=== PATIENT | male | born 1955 | race Caucasian/White ===

== ENCOUNTER 2019-07-21 13:07 | Outpatient (CLI) | payer OTHER, SELFPAY ==
--- NOTE | 2019-07-21 13:16 | ECG_ITS ---
Measurements Intervals [place] Rate: 91 P: 66 MN: 134 QRS: 48 QRSD: 88 T: 61 QT: 357 QTc: 440 Interpretive Statements SINUS RHYTHM NORMAL ECG Electronically Signed On 07-21-2019 17:51:08 CDT by Aj Verdugo D.O.
[2019-07-21 13:52] LABS: Blood Urea Nitrogen 21 mg/dL (9-20); Calcium 9.1 mg/dL (8.4-10.2); Carbon Dioxide 33 mmol/L (22-30); Chloride 98 mmol/L (98-107); Estimated Glomerular Filt Rate 51; Glucose 218 mg/dL (75-110); Potassium 4.1 mmol/L (3.4-5.0); Sodium 134 mmol/L (137-145)
[2019-07-21 13:56] LABS: INR 1.1; Prothrombin Time 13.8 Seconds (11.1-14.7)
[2019-07-21 13:57] LABS: Partial Thromboplastin Time 33.9 SECONDS (22.3-36.8)
== END 2019-07-21 13:08 | disposition home or self-care (01) ==
PROVIDERS: PCP Family Medicine; Visit Provider Anesthesiology
DX: E10.8 Type 1 diabetes mellitus with unspecified complications (principal); N18.9 Chronic kidney disease, unspecified
CPT/HCPCS: 36415; 80048; 85610; 85730; 93005

== ENCOUNTER 2019-07-23 01:04 | Day surgery (SDC) | payer OTHER, SELFPAY ==
[2019-07-20 13:11] VITALS: BMI 19.3
[2019-07-23] VITALS (10 sets, daily range): BP systolic 113–137; BP diastolic 41–70; PULSE 76–92; RESP 9–20; TEMP 36.3–37.7; O2SAT 96–100
--- NOTE | ~2019-07-23 | XR_ITS ---
EXAMINATION: XR surgery orthopedic DATE: 07/23/2019 10:09 INDICATION: Right foot transmetatarsal amputation TECHNIQUE: 2 fluoroscopic spot images of the right fore and midfoot were obtained during procedure pe rformed by Dr. Loyd. Radiologist was not present for the imaging or procedure. The amount of fluo roscopy time used during this procedure was 0.1 minutes. COMPARISON: None. FINDINGS: Initial mobile solutions architect image demonstrates a prior transmetatarsal amputation across the first metata rsal with smooth corticated margins. Osteolytic changes are seen at the heads of the second and third metatarsals and extending in a band across the second proximal phalanx. There is also an irregular c ortical contour to the neck of the fourth proximal phalanx. Subsequent image demonstrates transmetata rsal amputation across the proximal diaphyses of the second-fifth metatarsals. IMPRESSION: 1. Fluoroscopy utilized during right forefoot amputation across the diaphyses of the second-fifth met atarsals with changes of an earlier first transmetatarsal amputation. See procedure note for further detail. Reviewed, dictated and finalized at location [facility]. IMPRESSION: 1. Fluoroscopy utilized during right forefoot amputation across the diaphyses o f the second-fifth metatarsals with changes of an earlier first transmetatarsal amputation. See procedure note for further detail.
--- NOTE | 2019-07-23 07:34 | WPDANESEPPF ---
Anes - Initial Pre Proc Eval Procedure: Operation Date: 07/23/19 09:00 Proposed Procedures p Transmetatarsal Amputation Right Foot - Jaspreet Loyd JR, MD Date/Time: 07/23/19 07:34 Surgeon: Jaspreet Loyd JR, MD Pre Op Diagnosis: Gangrene Right Forefoot Patient Data Age: 64 Gender: M Height: 5 ft 11 in Weight: 63 kg Allergies Allergy/AdvReac Type Severity Reaction Status Date / Time No Known Allergies Allergy Unknown Verified 07/20/19 12:56 Home Medications Medication Instructions Recorded Confirmed Type clonazepam 1 mg tablet 1 mg PO DAILY #30 tablet 03/05/19 07/20/19 Rx duloxetine 60 mg capsule,delayed 60 mg PO DAILY 03/05/19 07/20/19 History release insulin aspart U-100 100 unit/mL 1 sliding scale dose SUB-Q 03/05/19 07/20/19 History subcutaneous cartridge USEASDIRECTD blood-glucose transmitter #1 each 05/18/19 05/18/19 History blood sugar diagnostic #600 each 06/30/19 Rx aspirin [Aspirin Childrens] 81 mg PO DAILY 07/20/19 07/20/19 History clindamycin HCl 300 mg PO Q8H 07/20/19 07/20/19 History collagenase clostridium histo. 1 applic TOPICAL DAILY 07/20/19 07/20/19 History [Santyl] ezetimibe 10 mg PO DAILY 07/20/19 07/20/19 History gabapentin 100 mg PO DAILY 07/20/19 07/20/19 History gabapentin 200 mg PO HS 07/20/19 07/20/19 History Patient hx anesthesia problems: none Family hx anesthesia problems: none PMFSH Past Medical History Medical History Ambulatory dysfunction Amputated toe of right foot Chronic kidney disease, unspecified Insomnia Major depressive disorder, recurrent, moderate FARNAZ (obstructive sleep apnea) Type I diabetes mellitus with complication Social History Social History Smoking status: Never smoker Alcohol intake: never Substance use: never Substance use type: does not use Gender identity (if verbalized by the patient): Male Anes - Eval Final PreProcedure Day of Procedure 07/23/19 07:34 Patient weight: normal Heart: regular rate and rhythm Lungs: clear to auscultation Airway: Mallampati scale class II Neurological: alert and oriented Last oral intake: >/= 8 hours ASA classification: III Emergent: no Anesthetic plan: proceed Anesthesia type and monitoring: general LMA and standard monitoring Informed Consent: The patient's anesthetic plan and its attendant risks and benefits were discussed with the patient/family/POA. Questions were solicited and answers provided to the satisfaction of the patient/family/POA.
[2019-07-23] MEDS: LACTATED RINGERS 1,000 ML 30 ML IV CONT (07:45)
[2019-07-23 07:52] LABS: Glucose Point of Care 213 (65-105)
--- NOTE | 2019-07-23 08:56 | WPDHPUPDATE1 ---
History and Physical Update Update Date/Time: 07/23/19 08:56 History and Physical has been reviewed, including an updated exam of the patient. There are NO changes in the patient's condition. Risks, benefits, and alternatives have been discussed and questions answered. Patient agrees to proceed with procedure understands that he may end up with a more proximal amputation if he does not heal at the TMA level .
[2019-07-23] MEDS: ceFAZolin 2 GM/D5W 50 ML 2 GM/50 ML BAG IVPB (09:05)
[2019-07-23] MEDS: LIDOCAINE HCL 2% LOCAL INJ 20 ML VIAL 10 ML INFILTRATE (09:41)
--- NOTE | 2019-07-23 10:23 | SUR.OPER ---
[id number]
--- NOTE | 2019-07-23 10:36 | PM.OP ---
Procedure Note - Brief Procedure Note - Brief Date of procedure: 07/23/19 Pre-op diagnosis: Gangrene Right Forefoot Post-op diagnosis: same Procedure performed: Transmetatarsal amputation right foot Anesthesia: GLMA Surgeon: Jaspreet Loyd JR, DPM Estimated blood loss (mL): 100 Complications: No immediate complications Condition: stable Disposition: same day
[2019-07-23 10:47] LABS: Glucose Point of Care 240 (65-105)
--- NOTE | 2019-07-23 10:57 | SUR.PHASEI ---
1050 - DR. MUNIZ'S AWAREOF 240 ACCUCHECK. NO ORDERS RECEIVED. SPOKE WITH PT ABOUT INSULIN PUMP. PT STATED THAT 240 WAS OK AT THIS TIME.
--- NOTE | 2019-07-23 11:02 | SUR.PHASEI ---
1102- DR. CEDILLO AT BEDSIDE SPEAKING WITH PT.
--- NOTE | 2019-07-23 11:43 | ADMGEN ---
This patient, Guerrero Yang , was admitted to 3 [facility] Surg Room 312-01. Patient/family oriented to hospital policies and general routines including ID bracelet, bed and alarms, visiting hours, pain management, procedures, bathroom and other care routines, personal items, smoking policy, room service/diet, and visiting hours. Valuables list has been completed. Information on how to activate the Rapid Response Team has been discussed. Patient/Family are encouraged to report perceived risks to care and to ask questions if they do not understand what they are told or what they should do.
[2019-07-23 12:36] LABS: Estimated CRCL calculation 44 ml/min; Estimated Glomerular Filt Rate 51
--- NOTE | 2019-07-23 12:39 | OP_ITS ---
DATE OF PROCEDURE: 07/23/2019 PREOPERATIVE DIAGNOSIS: Gangrene to the right forefoot. POSTOPERATIVE DIAGNOSIS: Gangrene to the right forefoot. PROCEDURE: Transmetatarsal amputation of the right foot. PATHOLOGY: The right forefoot sent for gross and histopathology. ANESTHESIA: General LMA with local anesthesia. HEMOSTASIS: Pneumatic ankle tourniquet at 250 mmHg. ESTIMATED BLOOD LOSS: 100 mL. MATERIALS USED: 3-0 Vicryl, 4-0 Vicryl, and 3-0 Prolene. INJECTABLES: 20 cc of a 1:1 mixture of 2% lidocaine plain and 0.5% Marcaine plain injected preoperatively. COMPLICATIONS: None. PROCEDURE IN DETAIL: Under mild sedation, the patient was brought into the operating room and placed on the operating table in the supine position. A pneumatic ankle tourniquet was placed about the patient's right ankle. Following general anesthesia, local anesthesia was obtained about the right foot utilizing 20 cc of a 1:1 mixture of 2% lidocaine plain and 0.5% Marcaine plain. The foot was then scrubbed, prepped, and draped in the usual aseptic manner. An Esmarch bandage was then used to examine the patient's right foot and the pneumatic ankle tourniquet was then inflated. Surgery began in the following manner: Attention was directed to the dorsal aspect of the right forefoot where a curvilinear incision was made along the proximal shaft of the metatarsals. Fluoroscopy was used to identify the distal margin of the previously resected 1st ray of the right foot. Next the parabola was approximated just slightly proximal to the oblique resected 1st metatarsal. Next, a plantar flap incision was made slightly proximal to the ulceration present to the right plantar forefoot. The incisions were extended deep down through the subcutaneous tissues using sharp and blunt dissection. All bleeders were ligated and cauterized as necessary. At this point, small Hohmann retractors were placed along the medial and lateral aspects of the 2nd through 5th metatarsals, and utilizing a sagittal bone saw, the metatarsal bones were cut. Next, the soft tissue that was holding the metatarsal bones was released utilizing Vasquez scissors. The wound site was flushed with approximately 1 L of sterile saline with pulse lavage system. There was no nonviable tissue noted at this stage. At this stage, the tourniquet was released. All bleeders were ligated and cauterized as necessary. There was no active arterial bleeding noted. Surgicel was applied along the plantar aspect where the arteries were ligated. Next, the subcutaneous structures were reapproximated and coapted utilizing 2-0 Vicryl. Next, the skin was reapproximated and coapted utilizing 3-0 Prolene in horizontal mattress suture fashion technique as well as simple interrupted suture fashion technique. There was excellent approximation of the plantar and dorsal flaps. The plantar flap was made slightly longer, which facilitated closure over the metatarsal bones. Final fluoroscopy was used to visualize the metatarsal resection site. Upon completion of the procedure, the incision was dressed with Adaptic, 4x4s, Kerlix, and Coban as well as an ABD pad. The capillary refill time was immediate to the plantar flap and dorsal flaps of the right forefoot. The patient did very well with the procedure and anesthesia. He was transferred to the recovery room with vital signs stable and vascular status intact to the flaps of the transmetatarsal amputation site of the right foot. Following a period of postoperative monitoring, the patient will be admitted for 23 hours with the following instructions: 1. Keep the dressing clean, dry, and intact. 2. Patient to be strictly nonweightbearing with bedside commode. 3. Elevate the right foot on 2 pillows offloading the heel. 4. The patie
[2019-07-23] MEDS: EZETIMIBE 10 MG TABLET PO (13:01)
--- NOTE | 2019-07-23 17:14 | PM.IMHP ---
H&P: HPI History of Present Illness Chief complaint: Gangrene Right Forefoot Narrative: Date of visit 07/22 1300. Guerrero Yang Jr. is a 64 year old white male with peripheral vascular disease, type 1 diabetes, and chronic renal failure stage 3 is status post right transmetatarsal amputation today for gangrenous digits. Presently has minimal pain is feeling well without any complaints. He has had diabetes since age 14 and has had an insulin pump since 1994. Last A1c 7.7 earlier in the month. 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 Review of Systems Review of Systems: Narrative: Conscious to show weight steady appetite good Eye no double vision scotoma, has had laser retinal surgery for proliferative retinopathy Mouth no pharyngitis laryngitis, admits poor dentition Pulmonary no shortness breath cough or wheezing CV no chest pain or palpitation GI no melena, hematochezia or diarrhea no dysuria no hematuria Muscle skeletal occasional pain left knee from previous surgery Integument no skin breakdown or rashes other than lesions on his right foot Psych no overt depression PMFSH Past Medical History Medical History (Updated 07/23/19 @ 17:22 by Hamzah Purcell MD) Ambulatory dysfunction Amputated toe of right foot Chronic kidney disease, unspecified Closed patellar sleeve fracture of left knee History of amputation of hallux Insomnia Major depressive disorder, recurrent, moderate FARNAZ (obstructive sleep apnea) Retinopathy due to secondary diabetes Type I diabetes mellitus with complication Surgical History Surgical History (Updated 07/23/19 @ 16:58 by Hamzah Purcell MD) History of transmetatarsal amputation of right foot Family History Family History (Updated 07/23/19 @ 17:09 by Hamzah Purcell MD) Father Acute myocardial infarction CABG Mother Hypothyroid Breast cancer Social History Social History (Updated 07/23/19 @ 17:00 by Hamzah Purcell MD) Smoking status: Never smoker Second hand tobacco smoke exposure: No Alcohol intake: never Substance use: never Substance use type: does not use Occupation/Education: retired Gender identity (if verbalized by the patient): Male Spiritual care concerns: Yes Agree to blood products: Yes Meds Home Medications and Allergies Home Medications Medication Instructions Recorded Confirmed Type clonazepam 1 mg tablet 1 mg PO DAILY #30 tablet 03/05/19 07/23/19 Rx duloxetine 60 mg capsule,delayed 60 mg PO DAILY 03/05/19 07/23/19 History release insulin aspart U-100 100 unit/mL 1 sliding scale dose SUB-Q 03/05/19 07/20/19 History subcutaneous cartridge USEASDIRECTD aspirin [Aspirin Childrens] 81 mg PO DAILY 07/20/19 07/20/19 History clindamycin HCl 300 mg PO Q8H 07/20/19 07/23/19 History collagenase clostridium histo. 1 applic TOPICAL DAILY 07/20/19 07/23/19 History [Santyl] ezetimibe 10 mg PO DAILY 07/20/19 07/23/19 History gabapentin 100 mg PO DAILY 07/20/19 07/23/19 History gabapentin 200 mg PO HS 07/20/19 07/23/19 History Allergies Allergy/AdvReac Type Severity Reaction Status Date / Time No Known Allergies Allergy Unknown Verified 07/23/19 08:04 Vital Signs Vital Signs - 24 hr 07/23/19 08:07 07/23/19 10:42 07/23/19 10:50 Temperature 37.7 C H 37.0 C Pulse Rate 85 91 92 Respiratory Rate 16 9 L 12 Blood Pressure 129/56 L 137/70 120/50 L Pulse Oximetry 100 100 100 07/23/19 11:05 07/23/19 11:20 07/23/19 11:25 Temperature 36.9 C Pulse Rate 89 91 91 Respiratory Rate 20 14 16 Blood Pressure 129/64 121/51 L 137/69 Pulse Oximetry 99 98 100 07/23/19 11:40 07/23/19 12:10 07/23/19 14:51 Temperature 36.9 C 36.8 C Pulse Rate 90 89 82 Respiratory Rate 16 16 16 Blood Pressure 115/64 113/59 L 115/50 L Pulse Oximetry 99 96 96 Exam Narrative: Exam Narrative: Blood pressure 116/50 pulse is 82 afebrile Pupils equal reactive to light sclera anicteric Mouth poor dentation mucosa ot
[2019-07-23] MEDS: GABAPENTIN 100 MG CAPSULE 200 MG PO (19:55)
[2019-07-23] MEDS: HEPARIN SODIUM 5,000 UNITS/ML VIAL 5000 UNITS SUB-Q (19:56)
[2019-07-24 02:00] VITALS: BP 123/60; PULSE 74; RESP 18; TEMP 36.3; O2SAT 100
[2019-07-24 06:00] VITALS: BP 121/64; PULSE 77; RESP 16; TEMP 36.4; O2SAT 99
[2019-07-24 06:17] LABS: Hematocrit 27.8 % (42.0-52.0); Hemoglobin 8.9 g/dL (14.0-18.0); Mean Corpuscular Hemoglobin 29.6 pg (26-34); Mean Corpuscular Volume 92.4 fl (80-100); Mean Platelet Volume 9.1 fl (7.4-10.4); Platelet Count Result 370 k/mm3 (150-375); Red Blood Count 3.01 M/mm3 (4.6-6.20); Red Cell Distribution Width 11.7 % (11.5-14.5)
[2019-07-24 06:43] LABS: Blood Urea Nitrogen 26 mg/dL (9-20); Carbon Dioxide 36 mmol/L (22-30); Chloride 99 mmol/L (98-107); Estimated CRCL calculation 47 ml/min; Estimated Glomerular Filt Rate 56; Glucose 219 mg/dL (75-110); Potassium 4.6 mmol/L (3.4-5.0); Sodium 137 mmol/L (137-145)
[2019-07-24 08:40] VITALS: O2SAT 91
[2019-07-24] MEDS: ASPIRIN 81 MG CHEWABLE TABLET PO (08:46)
[2019-07-24] MEDS: EZETIMIBE 10 MG TABLET PO (08:46)
[2019-07-24] MEDS: CLONAZEPAM 0.5 MG TAB 1 MG PO (08:46)
[2019-07-24] MEDS: GABAPENTIN 100 MG CAPSULE PO (08:46)
[2019-07-24] MEDS: DULOXETINE 60 MG CAPSULE.DR PO (08:47)
[2019-07-24] MEDS: HEPARIN SODIUM 5,000 UNITS/ML VIAL 5000 UNITS SUB-Q (08:47)
--- NOTE | 2019-07-24 09:00 | WPDPN ---
Progress Note: A&P Additional Plan The patient is stable for discharge from surgical standpoint. TMA site appears well persused, No SOI. Non weight bearing at home with knee scooter/crutches. Elevate the affected foot for next 3 days with the heel offloaded. Already has prescription filled at home for Clindamycin 300mg to be taken q8h until gone for 10 days. Patient should not change dressing should keep it clean and dry. Follow up as outpatient in my office on 07/28/19. Thanks for hospitalist help with this patient. Dr. Loyd [phone] Exam Const: General: healthy appearing, comfortable and awake Orientation/consciousness: patient oriented x3 Limitations: no limitations Extrem: Ankle/foot/toe images: 1. No ascending erythema from TMA site. Perfusion to the dorsal and plantar flaps appear to be within normal limits, CFT is immediate. No drainage noted. Incision site well coapted. No calor noted. 2. Objective Data Vital Signs Vital Signs: Vital Signs - 24 hr 07/23/19 10:42 07/23/19 10:50 07/23/19 11:05 Temperature 37.0 C Pulse Rate 91 92 89 Respiratory Rate 9 L 12 20 Blood Pressure 137/70 120/50 L 129/64 Pulse Oximetry 100 100 99 07/23/19 11:20 07/23/19 11:25 07/23/19 11:40 Temperature 36.9 C Pulse Rate 91 91 90 Respiratory Rate 14 16 16 Blood Pressure 121/51 L 137/69 115/64 Pulse Oximetry 98 100 99 07/23/19 12:10 07/23/19 14:51 07/23/19 22:00 Temperature 36.9 C 36.8 C 36.3 C L Pulse Rate 89 82 76 Respiratory Rate 16 16 18 Blood Pressure 113/59 L 115/50 L 119/41 L Pulse Oximetry 96 96 100 07/24/19 02:00 07/24/19 06:00 07/24/19 08:40 Temperature 36.3 C L 36.4 C Pulse Rate 74 77 Respiratory Rate 18 16 Blood Pressure 123/60 121/64 Pulse Oximetry 100 99 91 Intake/Output Intake/Output: Intake & Output 07/21/19 07/22/19 07/23/19 07/24/19 23:59 23:59 23:59 23:59 Intake Total 1090 350 Output Total 950 550 Balance 140 -200 Meds/Results Medications: Active Medications Generic Name Dose Route Start Last Admin Trade Name Freq PRN Reason Stop Dose Admin Acetaminophen 650 mg 07/23/19 15:38 Tylenol Tablet PO Q6H PRN Mild Pain (1-3) or Fever Hydrocodone Bitart/Acetaminophen 1 tab 07/23/19 11:25 [place] 5-325 Mg PO Q4H PRN Pain Rated 4-6 Aspirin 81 mg 07/24/19 09:00 07/24/19 08:46 Aspirin Chewable PO 81 mg DAILY SPEEDY Administration Clonazepam 1 mg 07/24/19 09:00 07/24/19 08:46 Klonopin Tablet PO 1 mg DAILY SPEEDY Administration Duloxetine HCl 60 mg 07/24/19 09:00 07/24/19 08:47 Cymbalta PO 60 mg DAILY SPEEDY Administration Ezetimibe 10 mg 07/23/19 12:00 07/24/19 08:46 Zetia PO 10 mg DAILY SPEEDY Administration Gabapentin 100 mg 07/23/19 09:00 07/24/19 08:46 Neurontin PO 100 mg DAILY SPEEDY Administration Gabapentin 200 mg 07/23/19 21:00 07/23/19 19:55 Neurontin PO 200 mg HS SPEEDY Administration Heparin Sodium (Porcine) 5,000 units 07/23/19 21:00 07/24/19 08:47 Heparin Sodium SUB-Q 5,000 units Q12HR SPEEDY Administration Piperacillin/Tazobactam/Dextrose 3.375 gm in 50 mls @ 100 mls/hr 07/23/19 18:00 07/24/19 08:53 Zosyn 3.375 Gm/D5w 50ml Pm IVPB Infused Q6H SPEEDY Infusion Vancomycin HCl 1,000 mg in 250 mls @ 250 mls/hr 07/24/19 13:00 Vancomycin 1,000 Mg/D5w 250 Ml IVPB Q24H COUNTS INCLUDE 234 BEDS AT THE [facility] Non-Formulary Medication 1 sliding scale dose 07/23/19 11:25 Insulin Aspart U-100 [Novolog Penfill U-100 Insulin] SUB-Q 08/22/19 11:26 USEASDIRECTD COUNTS INCLUDE 234 BEDS AT THE [facility] Ondansetron HCl 4 mg 07/23/19 11:25 Zofran Inj IV PUSH Q4H PRN Nausea And Vomiting Radiology Results: ITS Impressions Intraoperative X-Ray 07/23/19 10:17 IMPRESSION: 1. Fluoroscopy utilized during right forefoot amputation across the diaphyses of the second-fifth metatarsals with changes of an earlier first transmetatarsal amputation. See procedure note for further detail. Labs Lab
[2019-07-24 09:50] LABS: Glucose Point of Care 214 (65-105)
[2019-07-24 12:20] LABS: Glucose Point of Care 255 (65-105)
[2019-07-24 14:09] VITALS: BP 107/48; PULSE 75; RESP 16; TEMP 36.9; O2SAT 100
--- NOTE | 2019-07-24 17:29 | PM.DS ---
DS: Diagnosis Admitting Diagnosis Admitting Diagnosis: Type 1 diabetes mellitus with unspecified complications Discharge Diagnosis (1) History of transmetatarsal amputation of right foot: Code(s): Z89.431 - Acquired absence of right foot Status: Acute Assessment and Plan: Successful surgery 07/22 transmetatarsal amputation of the right foot. Did well and was able to be discharged per surgery 07/23 Continue vanc Zosyn while here and discharged home on clindamycin 300 Q 8 hour per podiatry (2) Type I diabetes mellitus with complication: Code(s): E10.8 - Type 1 diabetes mellitus with unspecified complications Status: Acute Assessment and Plan: Continued his insulin pump. Has used for number years and very familiar FBS the day of discharge was to 19 and hemoglobin A1c recently 7.7 He will follow-up with his wet roller (3) Chronic kidney disease, unspecified: Code(s): N18.9 - Chronic kidney disease, unspecified Status: Acute Assessment and Plan: Creatinine at baseline and 1.3 the day of discharge (4) Major depressive disorder, recurrent, moderate: Code(s): F33.1 - Major depressive disorder, recurrent, moderate Status: Acute Assessment and Plan: Continue antidepressant duloxetine DS: Summary Hospital Course Hospital Course: 64-year-old white male type 1 diabetic with insulin pump been peripheral vascular disease who had nonhealing open wounds his left foot despite revascularization with angioplasty and stenting presented with dry gangrenous toes and had a transmetatarsal amputation of the right foot. Surgery went well and he was able to be discharged home per podiatry the following day. He will see Dr. Harrison on the and his usual appointment with his wet roller as scheduled Time Spent with Patient Time attestation: Total time spent providing and/or coordinating discharge services: 35 minutes Exam Narrative: Exam Narrative: Condition on discharge Blood pressure 108/50 pulse is 74 regular afebrile Lungs clear CV regular rate rhythm no murmurs Abdomen is soft nontender Extremities without edema wound covered and Coban did not remove DS: Data Data Completed and Pending Pending studies at discharge: Pending at discharge 07/23/19 09:46 Surgical [PTH] Routine Labs on day of discharge: Labs from last 24 hours 07/24/19 07/24/19 07/24/19 11:59 08:43 05:49 WBC RBC Hgb Hct MCV MCH MCHC RDW Plt Count MPV Sodium 137 Potassium 4.6 Chloride 99 Carbon Dioxide 36 H BUN 26 H Creatinine 1.30 Estim Creat Clear Calc 47 Estimated GFR 56 L Glucose 219 H POC Capillary Glucose 255 H 214 H Calcium 9.0 07/24/19 05:49 WBC 16.0 H RBC 3.01 L Hgb 8.9 L Hct 27.8 L MCV 92.4 MCH 29.6 MCHC 32.0 RDW 11.7 Plt Count 370 MPV 9.1 Sodium Potassium Chloride Carbon Dioxide BUN Creatinine Estim Creat Clear Calc Estimated GFR Glucose POC Capillary Glucose Calcium Discharge Plan Discharge Patient Disposition: Home, Self-Care Discharge Instructions: Strict non weight bearing with knee scooter/crutches. Elevate the affected foot on two pillows always with the knee slightly bent for 3 days Bedrest with bathroom privileges for next 3 days. Reinitiate Xarelto and Aspirin. Follow-up/Referrals: Jaspreet Loyd JR, MD [Physician] - 07/28/19 (call 07/27/19 to schedule appointment. ) Haley Orantes MD [Primary Care Provider] - Keep Reg. Scheduled Appt. Discharge Orders: Discharge Order (Routine); Ordered 07/24/19 Ordered By: Hamzah Purcell Discharge Medications: Continued duloxetine [Cymbalta] 60 mg capsule,delayed release(DR/EC) 60 mg PO DAILY RF: 0 Novolog PenFill U-100 Insulin 100 unit/mL cartridge 1 sliding scale dose SUB-Q USEASDIRECTD RF: 0 clonazepam 1 mg tablet 1 mg PO DAILY Qty: 30 RF: 5 g
== END 2019-07-24 13:35 | disposition home or self-care (01) ==
LOC: ANHSURGERY 06:53 → ANH3MEDSUR 11:34
PROVIDERS: PCP Family Medicine; Visit Provider Podiatrist Foot & Ankle Surgery
PROC: (CPT 28805; principal; 2019-07-23 09:00)
DX: E10.52 Type 1 diabetes mellitus with diabetic peripheral angiopathy with gangrene (principal); I96 Gangrene, not elsewhere classified; M86.171 Other acute osteomyelitis, right ankle and foot; E10.69 Type 1 diabetes mellitus with other specified complication; E10.22 Type 1 diabetes mellitus with diabetic chronic kidney disease; N18.9 Chronic kidney disease, unspecified; G47.33 Obstructive sleep apnea (adult) (pediatric); F33.1 Major depressive disorder, recurrent, moderate; G47.00 Insomnia, unspecified; Z79.4 Long term (current) use of insulin; Z79.82 Long term (current) use of aspirin; Z89.411 Acquired absence of right great toe; Z96.41 Presence of insulin pump (external) (internal)
CPT/HCPCS: 28805; 36415; 80048; 82565; 85027; 88305; 88307; 88311; A9270; J0690; J1100; J1644; J2250; J2370; J2405; J2543; J2704; J3010; J3370; J7120

== ENCOUNTER 2019-09-17 10:54 | Outpatient (CLI) | payer OTHER, SELFPAY ==
--- NOTE | ~2019-09-17 | US_ITS ---
US venous doppler LE RT DATE: 09/17/2019 11:44 INDICATION: Right lower extremity swelling following partial right foot amputation 2 months ago TECHNIQUE: Real-time and color flow imaging and Doppler analysis of the veins of the right lower extr emity COMPARISON: None FINDINGS: The right greater saphenous vein is patent. There is spontaneous and phasic flow and normal augmentation and color flow signal and normal compression of the deep veins of the right lower extre mity. IMPRESSION: No evidence of venous thrombosis of right lower extremity Reviewed, dictated and finalized at [facility]. Reviewed, dictated and finalized at location [facility].
== END 2019-09-17 10:55 | disposition home or self-care (01) ==
PROVIDERS: PCP Family Medicine; Visit Provider Podiatrist Foot & Ankle Surgery
DX: M79.89 Other specified soft tissue disorders (principal)
CPT/HCPCS: 93971

== ENCOUNTER 2020-02-23 13:00 | Outpatient (RCR) | payer OTHER, SELFPAY ==
[2019-12-31 11:01] VITALS: BMI 19.2
== END 2020-03-30 23:59 | disposition home or self-care (01) ==
LOC: ANHDMC 13:00
PROVIDERS: PCP Family Medicine; Visit Provider Internal Medicine Endocrinology, Diabetes & Metabolism
DX: E10.43 Type 1 diabetes mellitus with diabetic autonomic (poly)neuropathy (principal); E16.2 Hypoglycemia, unspecified; Z71.3 Dietary counseling and surveillance; Z71.89 Other specified counseling
CPT/HCPCS: 97802; G0108

== ENCOUNTER 2020-03-12 15:44 | Emergency (ER) | payer OTHER, SELFPAY ==
--- NOTE | ~2020-03-12 | XR_ITS ---
EXAMINATION: XR foot RT min 3V EXAM DATE: 03/12/2020 17:37 INDICATION: Heel pain, no known recent injury. TECHNIQUE: Right foot dorsoplantar, lateral and oblique projections obtained and reviewed. Compariso n is made to prior examination from 06/01/2013. FINDINGS: Status post right foot transmetatarsal amputations. There are no bony erosions identified. There are no acute fractures or dislocations identified. There is no subcutaneous gas. The soft ti ssue is unremarkable. There are no radiopaque foreign bodies. IMPRESSION: 1. Right foot exam without acute osseous findings. Reviewed, dictated and finalized at location A. [facility]
[2020-03-12 16:47] VITALS: BP 118/50; PULSE 84; RESP 18; TEMP 37.7; O2SAT 100
[2020-03-12 17:25] LABS: Glucose Point of Care 180 (65-105)
--- NOTE | 2020-03-12 17:34 | ED.WOUNDLAC ---
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 He says that he has had a painful ulcer to the distal right foot for a few days. He has severe neuropathy and usually cannt feel that part of the foot, but he has had pain there for about 5 days. He has not been able to sleep due to the pain. His blood sugar has been running around 250, which is higher than usual. No systemic symptoms. He has an appointment with his pediatrist in 2 days. Related Data Home Medications Medication Instructions Recorded Confirmed aspirin [Aspirin Childrens] 81 mg PO DAILY 07/20/19 03/14/20 ezetimibe 10 mg tablet 10 mg PO DAILY 11/24/19 03/14/20 rosuvastatin 20 mg tablet 20 mg PO DAILY 02/21/20 03/14/20 Allergies Allergy/AdvReac Type Severity Reaction Status Date / Time No Known Allergies Allergy Unknown Verified 03/18/20 14:14 Review of Systems Review of Systems: All systems reviewed & are unremarkable except as noted in HPI and below Constitutional: Constitutional: Denies chills and Denies fever(s) Cardiovascular: Cardiovascular: Denies chest pain Respiratory: Respiratory: Denies dyspnea Gastrointestinal: Gastrointestinal: Denies abdominal pain, Denies nausea and Denies vomiting Genitourinary: Genitourinary: Denies dysuria Integumentary/Breasts: Skin/Breast: Reports skin ulcer Neurologic: Denies dizziness, Reports numbness and Denies weakness [facility] Past Medical History Medical History (Updated 03/14/20 @ 18:06 by Gladis Laureano PA-C) Ambulatory dysfunction 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 Anemia in chronic kidney disease Anxiety Chronic kidney disease, stage 3 (moderate) Baseline creatinine is between 1.3 and 1.40. Closed patellar sleeve fracture of left knee Depression Insomnia Kidney stones Major depressive disorder, recurrent, moderate Mixed hyperlipidemia Obstructive sleep apnea Peripheral vascular disease Type 1 diabetes mellitus Complicated by diabetic retinopathy, nephropathy, and neuropathy. Most recent hemoglobin A1c was 8.9%. Vitamin D insufficiency Surgical History Surgical History (Updated 03/14/20 @ 17:58 by Gladis Laureano PA-C) History of transmetatarsal amputation of right foot (~06/2019) Peripheral vascular angioplasty status with implants and grafts Family History Family History Father Acute myocardial infarction CABG Mother Hypothyroid Breast cancer Mother Family history of cataracts Father Malignant neoplasm of prostate Cerebrovascular accident Sibling Patient's brother is Other Family history of arthritis Family history of cardiovascular disease Family history of malignant neoplasm Social History Social History (Updated 03/14/20 @ 18:00 by Gladis Laureano PA-C) Social History: Surrogate decision maker: Guerrero Yang Sr. (father). Code status: Full code. Smoking status: Never smoker Second hand tobacco smoke exposure: No Alcohol intake: former Substance use: never Substance use type: does not use Additional living arrangements comments: . Lives in his own home in [place]. Ambulates with a cane. Additional occupation/education comments: Disabled. Gender identity (if verbalized by the patient): Male Spiritual care concerns: No Agree to blood products: Yes Exam Const: General: no acute distress and alert Nutritional Appearance: thin Orientation/consciousness: patient oriented x3 HENMT: Head: normal to inspection Resp: Effort & Inspection: normal respiratory effort Auscultation: clear to auscultation bilaterally Cardio:
[2020-03-12] MEDS: CIPROFLOXACIN 500 MG TAB PO (17:36)
[2020-03-12] MEDS: CLINDAMYCIN HCL 150 MG CAP 300 MG PO (17:37)
== END 2020-03-12 19:17 | disposition home or self-care (01) ==
LOC: ANHED 17:59
PROVIDERS: Emergency Provider Emergency Medicine; PCP Family Medicine
DX: E10.621 Type 1 diabetes mellitus with foot ulcer (principal); E10.22 Type 1 diabetes mellitus with diabetic chronic kidney disease; E10.311 Type 1 diabetes mellitus with unspecified diabetic retinopathy with macular edema; E10.43 Type 1 diabetes mellitus with diabetic autonomic (poly)neuropathy; E10.51 Type 1 diabetes mellitus with diabetic peripheral angiopathy without gangrene; L97.519 Non-pressure chronic ulcer of other part of right foot with unspecified severity; N18.30 Chronic kidney disease, stage 3 unspecified; Z79.4 Long term (current) use of insulin; Z89.411 Acquired absence of right great toe; Z89.421 Acquired absence of other right toe(s)
CPT/HCPCS: 73630; 87070; 87077; 87186; 87205; 99283; A9270

== ENCOUNTER 2020-03-14 10:15 | Inpatient (IN) | payer OTHER, SELFPAY ==
[2020-03-14 10:27] VITALS: BP 103/46; PULSE 67; RESP 16; TEMP 38; O2SAT 99
--- NOTE | 2020-03-14 11:08 | ED.WOUNDLAC ---
HPI - Wound/Laceration General Chief Complaint: Skin/Abscess/Foreign Body Stated Complaint: wound to right foot Time Seen by Provider: 03/14/20 10:58 History of Present Illness HPI narrative: Ulcer on right foot for the past week. Seen here 2 days ago by myself and started on cipro and clindamycin. He had an appointment with his pediatrist, Dr. Loyd this morning. Minor debridement was performed. He was sent here for IV antibiotics. He has developed a fever. He is a brittle diabetic and has a h/o amputation of all toes on the right due to infection. SInce developing this wound his blood sugar has been running above 250 consistently. Related Data Home Medications Medication Instructions Recorded Confirmed aspirin [Aspirin Childrens] 81 mg PO DAILY 07/20/19 03/14/20 ezetimibe 10 mg tablet 10 mg PO DAILY 11/24/19 03/14/20 rosuvastatin 20 mg tablet 20 mg PO DAILY 02/21/20 03/14/20 Allergies Allergy/AdvReac Type Severity Reaction Status Date / Time No Known Allergies Allergy Unknown Verified 03/18/20 14:14 Review of Systems Review of Systems: All systems reviewed & are unremarkable except as noted in HPI and below Constitutional: Constitutional: Denies chills, Reports fever(s) and Denies weakness Cardiovascular: Cardiovascular: Denies chest pain Respiratory: Respiratory: Denies dyspnea Gastrointestinal: Gastrointestinal: Denies abdominal pain, Denies nausea and Denies vomiting Genitourinary: Genitourinary: Denies hematuria and Denies dysuria Integumentary/Breasts: Skin/Breast: Reports skin ulcer Neurologic: Denies dizziness and Denies weakness [facility] Past Medical History Medical History (Updated 03/31/20 @ 15:44 by Terry Kraft MD) Ambulatory dysfunction 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 Anemia in chronic kidney disease Anxiety Chronic kidney disease, stage 3 (moderate) Baseline creatinine is between 1.3 and 1.40. Closed patellar sleeve fracture of left knee Depression Insomnia Kidney stones Major depressive disorder, recurrent, moderate Mixed hyperlipidemia Obstructive sleep apnea Peripheral vascular disease Type 1 diabetes mellitus Complicated by diabetic retinopathy, nephropathy, and neuropathy. Most recent hemoglobin A1c was 8.9%. Vitamin D insufficiency Surgical History Surgical History (Updated 03/14/20 @ 17:58 by Gladis Laureano PA-C) History of transmetatarsal amputation of right foot (~06/2019) Peripheral vascular angioplasty status with implants and grafts Family History Family History Father Acute myocardial infarction CABG Mother Hypothyroid Breast cancer Mother Family history of cataracts Father Malignant neoplasm of prostate Cerebrovascular accident Sibling Patient's brother is Other Family history of arthritis Family history of cardiovascular disease Family history of malignant neoplasm Social History Social History (Updated 03/14/20 @ 18:00 by Gladis Laureano PA-C) Social History: Surrogate decision maker: Guerrero Yang Sr. (father). Code status: Full code. Smoking status: Never smoker Second hand tobacco smoke exposure: No Alcohol intake: former Substance use: never Substance use type: does not use Additional living arrangements comments: . Lives in his own home in [place]. Ambulates with a cane. Additional occupation/education comments: Disabled. Gender identity (if verbalized by the patient): Male Spiritual care concerns: No Agree to blood products: Yes Exam Const: General: no acute distress and alert Nutritional Appearance: thin Orientation/consciousness: patient oriented x3 HENMT: Head: normal to inspection Resp: Effort & Inspection: normal respiratory effort Auscultation: clear to auscultation bilaterally Cardio: Rate: regular rate Rhythm: regula
[2020-03-14 11:29] LABS: Basophils Percent Auto 0.3 % (0.2-1.2); Eosinophils Absolute Auto 0.1 K/mm3 (0-0.3); Eosinophils Percent Auto 0.5 % (0-4.4); Hematocrit 27.1 % (42.0-52.0); Hemoglobin 8.8 g/dL (14.0-18.0); Immature Granulocyte Percent A 0.7 % (0-0.5); Lymphocytes Absolute Auto 1.66 K/mm3 (0.9-3.2); Lymphocytes Percent Auto 11.4 % (18.3-44.2); Mean Corpuscular HGB Conc 32.5 g/dl (32-36); Mean Corpuscular Hemoglobin 30.1 pg (26-34); Mean Corpuscular Volume 92.8 fl (80-100); Monocytes Absolute Auto 1.6 K/mm3 (0.1-0.6); Monocytes Percent Auto 10.7 % (2.6-8.5); Neutrophils Absolute Auto 11.2 K/mm3 (1.3-6.7); Neutrophils Percent Auto 76.4 % (45.5-73.1); Platelet Count Result 415 k/mm3 (150-375); Red Blood Count 2.92 M/mm3 (4.6-6.20); Red Cell Distribution Width 11.9 % (11.5-14.5); White Blood Count 14.6 K/mm3 (4.5-10.0)
[2020-03-14 11:39] LABS: Lactic Acid Reflex 0.9 mmol/L (0.7-2.1)
[2020-03-14 11:43] LABS: Anion Gap 9 mmol/L (8-16); Blood Urea Nitrogen 34 mg/dL (9-20); Calcium 9.4 mg/dL (8.4-10.2); Carbon Dioxide 31 mmol/L (22-30); Chloride 92 mmol/L (98-107); Estimated CRCL calculation 36 ml/min; Estimated Glomerular Filt Rate 44; Glucose 282 mg/dL (75-110); Potassium 3.9 mmol/L (3.4-5.0); Sodium 132 mmol/L (137-145)
[2020-03-14 11:53] LABS: CRP 13.4 mg/dL (<1.0)
[2020-03-14] MEDS: MORPHINE SULFATE (*CRX) 2 MG/ML INJ IV PUSH ×2 (12:09→22:21)
[2020-03-14] MEDS: SODIUM CHLORIDE 0.9% IV 1,000 ML 999 ML IV CONT (12:11)
--- NOTE | 2020-03-14 12:15 | PC.NURSE ---
Lunch tray given. Continue to await arrival of sister prior to discharging.
[2020-03-14 12:38] LABS: Erythrocyte Sedimentation Rate > 140 mm/hr (0-20)
--- NOTE | 2020-03-14 13:46 | PC.NURSE ---
TRACY Palencia at bedside for exam.
--- NOTE | 2020-03-14 14:00 | PM.IMHP ---
H&P: HPI History of Present Illness Date/Time: 03/14/20 14:00 Chief complaint: Infected diabetic foot wound Narrative: Guerrero Yang Jr. is a 65-year-old male with type 1 diabetes mellitus, peripheral vascular disease, chronic kidney disease, and chronic anemia who presented to the emergency department earlier today from Dr. Loyd'office for further evaluation of an infected diabetic foot wound. He underwent transmetatarsal amputation of the right foot in June 2019 and more recently he has developed a painful ulcer along the amputation site on the right lateral foot. He was seen in the office by Dr. Loyd this morning and apparently had minor debridement of the area but was sent in for IV antibiotics. With further questioning he does mention over the past couple of days having run a low-grade fever up to 100? with associated decrease in appetite and hyperglycemia. He reports 10/10 pain at the area of the ulcer, which is unusual for him as he suffers from severe peripheral neuropathy. No known history of multidrug resistant organisms. He denies cough and shortness of breath. Review of Systems Review of Systems: Narrative: Twelve systems were reviewed with pertinent positives and negatives as per HPI. He has been running a low-grade fever and reports generalized malaise. Reports mild rhinorrhea. No known exposure to those positive for COVID-19. He denies chest pain shortness of breath. No vomiting or diarrhea. No dysuria. His glucose has been running high, which he reports is not unusual for him when he is ill. He is on insulin pump and does continuous glucose monitoring as well. No blurry vision, polydipsia, or polyuria. Except as documented, all other systems were reviewed and are negative. 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 Anemia in chronic kidney disease Anxiety Chronic kidney disease, stage 3 (moderate) Baseline creatinine is between 1.3 and 1.40. Closed patellar sleeve fracture of left knee Depression Insomnia Kidney stones Major depressive disorder, recurrent, moderate Mixed hyperlipidemia Obstructive sleep apnea Peripheral vascular disease Type 1 diabetes mellitus Complicated by diabetic retinopathy, nephropathy, and neuropathy. Most recent hemoglobin A1c was 8.9%. Vitamin D insufficiency Surgical History Surgical History (Updated 03/14/20 @ 17:58 by Gladis Laureano PA-C) History of transmetatarsal amputation of right foot (~06/2019) Peripheral vascular angioplasty status with implants and grafts Family History Family History Father Acute myocardial infarction CABG Mother Hypothyroid Breast cancer Mother Family history of cataracts Father Malignant neoplasm of prostate Cerebrovascular accident Sibling Patient's brother is Other Family history of arthritis Family history of cardiovascular disease Family history of malignant neoplasm Social History Social History (Updated 03/14/20 @ 18:00 by Gladis Laureano PA-C) Social History: Surrogate decision maker: Guerrero Yang Sr. (father). Code status: Full code. Smoking status: Never smoker Second hand tobacco smoke exposure: No Alcohol intake: former Substance use: never Substance use type: does not use Additional living arrangements comments: . Lives in his own home in [place]. Ambulates with a cane. Additional occupation/education comments: Disabled. Gender identity (if verbalized by the patient): Male Spiritual care concerns: No Agree to blood products: Yes Meds Home Medications and Allergies Home Medications Medication Instructions Recorded Confirmed Type blood-glucose meter,continuous #1 each 03/16/19 Rx blood-glucose
[2020-03-14 14:30] VITALS: BP 132/78; PULSE 77; RESP 16; TEMP 36.3; O2SAT 100
[2020-03-14 14:33] VITALS: BMI 18.4
--- NOTE | 2020-03-14 14:50 | ADMGEN ---
This patient, Guerrero Yang , was admitted to 3 [facility] Surg Room 307-01. Patient/family oriented to hospital policies and general routines including ID bracelet, bed and alarms, visiting hours, pain management, procedures, bathroom and other care routines, personal items, smoking policy, room service/diet, and visiting hours. Information on how to activate the Rapid Response Team has been discussed. Patient/Family are encouraged to report perceived risks to care and to ask questions if they do not understand what they are told or what they should do.
[2020-03-14] MEDS: LACTATED RINGERS 1,000 ML 75 ML IV CONT (17:03)
[2020-03-14 18:06] LABS: Glucose Point of Care 119 (65-105)
[2020-03-14 19:49] VITALS: O2SAT 97
--- NOTE | 2020-03-14 19:51 | PCRCNOTE ---
PT STATES THAT HE DOES NOT WEAR A CPAP AT HOME AND DOES NOT WANT TO USE ONE HERE. VIRAJ PERRY NOTIFIED
[2020-03-14] MEDS: SODIUM CHLORIDE 0.9% IV 1,000 ML 100 ML IV CONT (20:18)
[2020-03-14 22:00] VITALS: BP 100/45; PULSE 78; RESP 18; TEMP 38.2; O2SAT 99
[2020-03-14 22:10] LABS: Glucose Point of Care 201 (65-105)
[2020-03-15 06:00] VITALS: BP 113/50; PULSE 80; RESP 20; TEMP 37.7; O2SAT 99
[2020-03-15 06:23] LABS: Basophils Percent Auto 0.3 % (0.2-1.2); Eosinophils Absolute Auto 0.2 K/mm3 (0-0.3); Eosinophils Percent Auto 1.4 % (0-4.4); Hematocrit 24.7 % (42.0-52.0); Immature Granulocyte Absolute 0.11 K/mm3 (0.00-0.031); Immature Granulocyte Percent A 0.8 % (0-0.5); Lymphocytes Absolute Auto 2.01 K/mm3 (0.9-3.2); Lymphocytes Percent Auto 15.4 % (18.3-44.2); Mean Corpuscular HGB Conc 32.4 g/dl (32-36); Mean Corpuscular Hemoglobin 30.3 pg (26-34); Mean Corpuscular Volume 93.6 fl (80-100); Monocytes Absolute Auto 1.7 K/mm3 (0.1-0.6); Monocytes Percent Auto 12.9 % (2.6-8.5); Neutrophils Absolute Auto 9.1 K/mm3 (1.3-6.7); Neutrophils Percent Auto 69.2 % (45.5-73.1); Platelet Count Result 388 k/mm3 (150-375); Red Blood Count 2.64 M/mm3 (4.6-6.20); Red Cell Distribution Width 11.9 % (11.5-14.5); White Blood Count 13.1 K/mm3 (4.5-10.0)
[2020-03-15 06:45] LABS: Alanine Aminotransferase 13 U/L (4-50); Albumin Level 3.2 g/dL (3.5-5.1); Alkaline Phosphatase 77 U/L (38-126); Anion Gap 6 mmol/L (8-16); Aspartate Amino Transferase 25 U/L (17-59); Bilirubin,Total 0.4 mg/dL (0.2-1.3); Blood Urea Nitrogen 24 mg/dL (9-20); Calcium 8.7 mg/dL (8.4-10.2); Carbon Dioxide 29 mmol/L (22-30); Chloride 102 mmol/L (98-107); Estimated CRCL calculation 48 ml/min; Estimated Glomerular Filt Rate > 60; Glucose 232 mg/dL (75-110); Magnesium 2.1 mg/dL (1.6-2.3); Sodium 137 mmol/L (137-145)
[2020-03-15 07:13] LABS: Potassium 4.3 mmol/L (3.4-5.0)
[2020-03-15] MEDS: ROSUVASTATIN 10 MG TABLET 20 MG PO (08:35)
[2020-03-15] MEDS: DULoxetine HCL 60 MG CAPSULE.DR PO (08:35)
[2020-03-15] MEDS: EZETIMIBE 10 MG TABLET PO (08:35)
[2020-03-15] MEDS: PREGABALIN (*CRX) 75 MG CAPSULE PO ×2 (08:40→16:36)
[2020-03-15] MEDS: clonazePAM (*CRX) 0.5 MG TABLET 1 MG PO (08:48)
[2020-03-15 12:53] VITALS: BMI 18.4
[2020-03-15] MEDS: INSULIN ASPART (*BKC) 100 UNITS/ML SUB-Q ×2 (13:16→16:39)
[2020-03-15 13:26] LABS: Glucose Point of Care 265 (65-105)
--- NOTE | 2020-03-15 13:31 | PM.IMPN ---
Progress Note: A&P Assessment and Plan (1) Diabetic infection of right foot: Code(s): E11.628 - Type 2 diabetes mellitus with other skin complications; L08.9 - Local infection of the skin and subcutaneous tissue, unspecified Status: Acute Assessment and Plan: Pt is on impenem and vancomycin, [place] [id number] [place] Loyd is consulted podiatry MD. (2) Type 1 diabetes mellitus with hyperglycemia: Code(s): E10.65 - Type 1 diabetes mellitus with hyperglycemia Status: Acute Assessment and Plan: Pt is on a insulin pump Not using it properly today. Sugars are high. Change to high dose insulin. (3) Chronic kidney disease, stage 3 (moderate): Code(s): N18.3 - Chronic kidney disease, stage 3 (moderate) Status: Acute Assessment and Plan: Creat is 1.2, continue to monitor (4) Anemia in chronic kidney disease: Code(s): N18.9 - Chronic kidney disease, unspecified; D63.1 - Anemia in chronic kidney disease Status: Inactive Assessment and Plan: HB is 8, continue to monitor (5) Obstructive sleep apnea: Code(s): G47.33 - Obstructive sleep apnea (adult) (pediatric) Status: Inactive Assessment and Plan: CPAP IS AVAILABLE (6) Mixed hyperlipidemia: Code(s): E78.2 - Mixed hyperlipidemia Status: Acute Assessment and Plan: pt is on zetia Subjective Date/time seen: 03/15/20 13:31 Interval history: 65-year-old male with type 1 diabetes mellitus, peripheral vascular disease, chronic kidney disease, and chronic anemia who presented to the emergency department earlier today from Dr. Loyd'office for further evaluation of an infected diabetic foot wound. He underwent transmetatarsal amputation of the right foot in June 2019 and more recently he has developed a painful ulcer along the amputation site on the right lateral foot. Pt looks sleepy, sugars are running high. Pt is on a insulin pump unsure if he is using it properly. Review of Systems Review of Systems: All systems reviewed & are unremarkable except as noted in HPI and below Exam Narrative: Exam Narrative: General: Chronically ill-appearing male Respiratory: Lungs are clear to auscultation bilaterally. Cardiovascular: Regular rate and rhythm with S1-S2. Gastrointestinal: Abdomen is soft, nontender, and nondistended with positive bowel sounds. Skin: Shallow ulcerated area at the previous transmetatarsal amputation site of the right lateral foot Extremities: No cyanosis, clubbing, or edema. Neurological: No gross focal deficits to casual conversation. Psychiatric: Cooperative. But tired appearing Objective Data Vital Signs Vital Signs: Vital Signs - 24 hr 03/14/20 14:30 03/14/20 19:49 03/14/20 22:00 Temperature 36.3 C L 38.2 C H Pulse Rate 77 78 Respiratory Rate 16 18 Blood Pressure 132/78 100/45 L Pulse Oximetry 100 97 99 03/15/20 06:00 Temperature 37.7 C H Pulse Rate 80 Respiratory Rate 20 Blood Pressure 113/50 L Pulse Oximetry 99 Intake/Output Intake/Output: Intake & Output 03/12/20 03/13/20 03/14/20 03/15/20 23:59 23:59 23:59 23:59 Intake Total 1390 340 Output Total 750 0 Balance 640 340 Meds/Results Medications: Active Medications Generic Name Dose Route Start Last Admin Trade Name Freq PRN Reason Stop Dose Admin Acetaminophen 650 mg 03/14/20 21:44 Acetaminophen 325 Mg Tablet PO Q6H PRN Mild Pain (1-3) or Fever Hydrocodone Bitart/Acetaminophen 1 tab 03/14/20 21:44 Hydrocodone/Acetaminophen (*Crx) 5-325 Mg Tablet PO Q6H PRN Pain Rated 4-6 Clonazepam 1 mg 03/15/20 09:00 03/15/20 08:48 Clonazepam (*Crx) 0.5 Mg Tablet PO 1 mg DAILY SPEEDY Administration Dextrose 12.5 gm 03/14/20 18:11 Dextrose 50% 25 Gm/50 Ml Syringe IV PUSH PRN PRN Hypoglycemia Protocol Duloxetine HCl 60 mg 03/15/20 09:00 03/15/20 08:35 Duloxetine Hcl 60 Mg Capsul
[2020-03-15 14:34] VITALS: BP 129/57; PULSE 86; RESP 18; TEMP 36.5; O2SAT 97
[2020-03-15 16:57] LABS: Glucose Point of Care 287 (65-105)
[2020-03-15 21:54] LABS: Glucose Point of Care 433 (65-105)
[2020-03-15 22:00] VITALS: BP 120/52; PULSE 84; RESP 16; TEMP 37; O2SAT 98
--- NOTE | 2020-03-15 22:22 | PM.IMHP ---
H&P: HPI History of Present Illness Date/Time: 03/15/20 22:22 Chief complaint: Infected diabetic foot wound Narrative: Guerrero Yang Jr. is a 65 year old male with diabetes and severe peripheral neuropathy. Furthermore, he has peripheral arterial occlusive disease, he has a history of a TMA to the right foot after developing gangrene to the digits of the right foot. Dr. Brian, at [facility] performed revascularization via peripheral angioplaties to the right lower extremity and he went on to heal the TMA site. One week ago, he devoloped a draining blister to the lateral right TMA site. He went to the ED and was prescribed oral antibiotics. He followed up with me February, and underwent an in office full thickness ulcer debridement. The debridement of fibrotic tissue extended to bone. He was experienceing no FCNV/SOB. He had cellulitis extensive cellulitis so I recommended the patient go to ED for IV antibiotic managment and was admitted afterwards. 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 Anemia in chronic kidney disease Anxiety Chronic kidney disease, stage 3 (moderate) Baseline creatinine is between 1.3 and 1.40. Closed patellar sleeve fracture of left knee Depression Insomnia Kidney stones Major depressive disorder, recurrent, moderate Mixed hyperlipidemia Obstructive sleep apnea Peripheral vascular disease Type 1 diabetes mellitus Complicated by diabetic retinopathy, nephropathy, and neuropathy. Most recent hemoglobin A1c was 8.9%. Vitamin D insufficiency Surgical History Surgical History (Updated 03/14/20 @ 17:58 by Gladis Laureano PA-C) History of transmetatarsal amputation of right foot (~06/2019) Peripheral vascular angioplasty status with implants and grafts Family History Family History Father Acute myocardial infarction CABG Mother Hypothyroid Breast cancer Mother Family history of cataracts Father Malignant neoplasm of prostate Cerebrovascular accident Sibling Patient's brother is Other Family history of arthritis Family history of cardiovascular disease Family history of malignant neoplasm Social History Social History (Updated 03/14/20 @ 18:00 by Gladis Laureano PA-C) Social History: Surrogate decision maker: Guerrero Yang Sr. (father). Code status: Full code. Smoking status: Never smoker Second hand tobacco smoke exposure: No Alcohol intake: former Substance use: never Substance use type: does not use Additional living arrangements comments: . Lives in his own home in [place]. Ambulates with a cane. Additional occupation/education comments: Disabled. Gender identity (if verbalized by the patient): Male Spiritual care concerns: No Agree to blood products: Yes Meds Home Medications and Allergies Home Medications Medication Instructions Recorded Confirmed Type blood-glucose meter,continuous #1 each 03/16/19 Rx blood-glucose sensor #3 each 03/16/19 Rx blood-glucose transmitter #1 each 03/16/19 Rx aspirin [Aspirin Childrens] 81 mg PO DAILY 07/20/19 03/14/20 History clonazepam 1 mg tablet 1 mg PO DAILY #30 tablet 10/08/19 03/14/20 Rx pregabalin 75 mg capsule 75 mg PO BID #180 cap 10/08/19 03/14/20 Rx duloxetine 60 mg capsule,delayed 60 mg PO DAILY #90 cap 10/14/19 03/14/20 Rx release cholecalciferol (vitamin D3) 1,250 1,250 mcg PO WEEKLY #14 cap 11/03/19 03/14/20 Rx mcg (50,000 unit) capsule ezetimibe 10 mg tablet 10 mg PO DAILY 11/24/19 03/14/20 History insulin aspart U-100 100 unit/mL See Rx Instructions .ROUTE 02/18/20
[2020-03-16 06:00] VITALS: BP 117/93; PULSE 89; RESP 16; TEMP 37.2; O2SAT 98
[2020-03-16 08:37] LABS: Glucose Point of Care 444 (65-105)
[2020-03-16] MEDS: ROSUVASTATIN 10 MG TABLET 20 MG PO (09:25)
[2020-03-16] MEDS: DULoxetine HCL 60 MG CAPSULE.DR PO (09:25)
[2020-03-16] MEDS: EZETIMIBE 10 MG TABLET PO (09:25)
[2020-03-16] MEDS: clonazePAM (*CRX) 0.5 MG TABLET 1 MG PO (09:29)
[2020-03-16] MEDS: PREGABALIN (*CRX) 75 MG CAPSULE PO ×2 (09:29→17:38)
[2020-03-16] MEDS: INSULIN ASPART (*BKC) 100 UNITS/ML SUB-Q ×3 (09:30→17:36)
[2020-03-16 10:10] VITALS: PULSE 89; RESP 18; O2SAT 96
[2020-03-16] MEDS: INSULIN ASPART (*BKC) 100 UNITS/ML 10 UNITS SUB-Q (10:47)
[2020-03-16 10:55] LABS: Glucose Point of Care 406 (65-105)
[2020-03-16 12:49] LABS: Basophils Absolute Auto 0.1 K/mm3 (0.0-0.1); Basophils Percent Auto 0.4 % (0.2-1.2); Eosinophils Absolute Auto 0.2 K/mm3 (0-0.3); Eosinophils Percent Auto 1.3 % (0-4.4); Hematocrit 26.1 % (42.0-52.0); Hemoglobin 8.5 g/dL (14.0-18.0); Immature Granulocyte Absolute 0.15 K/mm3 (0.00-0.031); Immature Granulocyte Percent A 1.1 % (0-0.5); Lymphocytes Absolute Auto 1.62 K/mm3 (0.9-3.2); Lymphocytes Percent Auto 11.9 % (18.3-44.2); Mean Corpuscular HGB Conc 32.6 g/dl (32-36); Mean Corpuscular Volume 95.3 fl (80-100); Mean Platelet Volume 9.3 fl (7.4-10.4); Monocytes Absolute Auto 1.5 K/mm3 (0.1-0.6); Monocytes Percent Auto 11.1 % (2.6-8.5); Neutrophils Absolute Auto 10.1 K/mm3 (1.3-6.7); Neutrophils Percent Auto 74.2 % (45.5-73.1); Platelet Count Result 489 k/mm3 (150-375); Red Blood Count 2.74 M/mm3 (4.6-6.20); Red Cell Distribution Width 11.9 % (11.5-14.5); White Blood Count 13.7 K/mm3 (4.5-10.0)
--- NOTE | 2020-03-16 12:54 | PM.IMPN ---
Progress Note: A&P Assessment and Plan (1) Diabetic infection of right foot: Code(s): E11.628 - Type 2 diabetes mellitus with other skin complications; L08.9 - Local infection of the skin and subcutaneous tissue, unspecified Status: Acute Assessment and Plan: Switch pt to zosyn pt has pseudomonas in the wound. DR Loyd is consulted podiatry MD. Betadine and kerlex on wound. (2) Type 1 diabetes mellitus with hyperglycemia: Code(s): E10.65 - Type 1 diabetes mellitus with hyperglycemia Status: Acute Assessment and Plan: Pt is on a insulin pump Not using it properly today. Sugars are high. Change to high dose insulin SSI and 6 units with meals. (3) Chronic kidney disease, stage 3 (moderate): Code(s): N18.3 - Chronic kidney disease, stage 3 (moderate) Status: Acute Assessment and Plan: Creat is 1.2, continue to monitor (4) Anemia in chronic kidney disease: Code(s): N18.9 - Chronic kidney disease, unspecified; D63.1 - Anemia in chronic kidney disease Status: Inactive Assessment and Plan: HB is 8, continue to monitor (5) Obstructive sleep apnea: Code(s): G47.33 - Obstructive sleep apnea (adult) (pediatric) Status: Inactive Assessment and Plan: CPAP IS AVAILABLE (6) Mixed hyperlipidemia: Code(s): E78.2 - Mixed hyperlipidemia Status: Acute Assessment and Plan: pt is on zetia Subjective Date/time seen: 03/16/20 12:54 Interval history: 65-year-old male with type 1 diabetes mellitus, peripheral vascular disease, chronic kidney disease, and chronic anemia who presented to the emergency department earlier today from Dr. Loyd'office for further evaluation of an infected diabetic foot wound. He underwent transmetatarsal amputation of the right foot in June 2019 and more recently he has developed a painful ulcer along the amputation site on the right lateral foot. Pt looks sleepy, sugars are running high. Pt is on a insulin pump unsure if he is using it properly. Pt wcc are improving, wound shows pseudomonas. Sensitive to zosyn. Review of Systems Review of Systems: All systems reviewed & are unremarkable except as noted in HPI and below Exam Narrative: Exam Narrative: General: Chronically ill-appearing male Respiratory: Lungs are clear to auscultation bilaterally. Cardiovascular: Regular rate and rhythm with S1-S2. Gastrointestinal: Abdomen is soft, nontender, and nondistended with positive bowel sounds. Skin: Shallow ulcerated area at the previous transmetatarsal amputation site of the right lateral foot Extremities: No cyanosis, clubbing, or edema. Neurological: No gross focal deficits to casual conversation. Psychiatric: Cooperative. But tired appearing Objective Data Vital Signs Vital Signs: Vital Signs - 24 hr 03/15/20 14:34 03/15/20 22:00 03/16/20 06:00 Temperature 36.5 C 37.0 C 37.2 C Pulse Rate 86 84 89 Respiratory Rate 18 16 16 Blood Pressure 129/57 L 120/52 L 117/93 H Pulse Oximetry 97 98 98 03/16/20 10:10 Temperature Pulse Rate 89 Respiratory Rate 18 Blood Pressure Pulse Oximetry 96 Intake/Output Intake/Output: Intake & Output 03/13/20 03/14/20 03/15/20 03/16/20 23:59 23:59 23:59 23:59 Intake Total 1390 1820 480 Output Total 750 850 700 Balance 640 970 -220 Meds/Results Medications: Active Medications Generic Name Dose Route Start Last Admin Trade Name Freq PRN Reason Stop Dose Admin Acetaminophen 650 mg 03/14/20 21:44 Acetaminophen 325 Mg Tablet PO Q6H PRN Mild Pain (1-3) or Fever Hydrocodone Bitart/Acetaminophen 1 tab 03/14/20 21:44 Hydrocodone/Acetaminophen (*Crx) 5-325 Mg Tablet PO Q6H PRN Pain Rated 4-6 Clonazepam 1 mg 03/15/20 09:00 03/16/20 09:29 Clonazepam (*Crx) 0.5 Mg Tablet PO 1 mg DAILY SPEEDY Administration Dextrose 12.5 gm 03/14/20 18:11 Dextrose 50% 25 Gm/50 Ml Syringe IV PUSH P
[2020-03-16 12:55] LABS: Glucose Point of Care 307 (65-105)
[2020-03-16] MEDS: INSULIN ASPART (*BKC) 100 UNITS/ML 6 UNITS SUB-Q ×2 (12:59→17:37)
[2020-03-16 13:23] LABS: CRP 12.9 mg/dL (<1.0)
[2020-03-16 13:33] LABS: Erythrocyte Sedimentation Rate > 140 mm/hr (0-20)
[2020-03-16 14:00] VITALS: BP 109/54; PULSE 85; RESP 18; TEMP 36.8; O2SAT 100
[2020-03-16 17:34] LABS: Glucose Point of Care 385 (65-105)
--- NOTE | 2020-03-16 17:51 | WPDPN ---
Progress Note: A&P Additional Plan Diabetic with neuropathic/ischemic ulcer the right foot lateral TMA site- -The cellulitis appears to have progressed in the last 24 hours -Dry gangrenous necrotic wound larger plantarly -WBC still elevated 13k+ - Will discuss probability of healing after an agressive foot debridement with Dr. Gonzalez (vascular specialist)tomorrow morning. The patient recently underwent a vascular study as an oupatient. if Dr. Gonzalez doesn't think healing is probable after foot debridement general surgery will be consulted for proximal amputation. - I discussed this plan with the patient and his father, both agree with plan -ID will be consulted for antibiotic managment culture positive for Pseudomonas Aeruginosa. -Blood cultures still pending Continue with local wound care with Betadine soaked 4x4 gauze and Kerlix roll changed daily. Will continue to monitor patient Dr. Loyd Office:[phone] Time Spent With Patient Time with patient: 15 - 25 minutes Exam Extrem: Ankle/foot/toe images: 1. Increase in edema and erythema extending now to the dorsal aspect of the foot, dry gangranous changes increasing plantar laterally. 5th metatarsal is now protroding from the plantar wound. 2. Non palpable pedal pulses the right foot. TMA to the right foot. Objective Data Vital Signs Vital Signs: Vital Signs - 24 hr 03/15/20 22:00 03/16/20 06:00 03/16/20 10:10 Temperature 37.0 C 37.2 C Pulse Rate 84 89 89 Respiratory Rate 16 16 18 Blood Pressure 120/52 L 117/93 H Pulse Oximetry 98 98 96 03/16/20 14:00 Temperature 36.8 C Pulse Rate 85 Respiratory Rate 18 Blood Pressure 109/54 L Pulse Oximetry 100 Intake/Output Intake/Output: Intake & Output 03/13/20 03/14/20 03/15/20 03/16/20 23:59 23:59 23:59 23:59 Intake Total 1390 1820 1440 Output Total 750 850 700 Balance 640 970 740 Meds/Results Medications: Active Medications Generic Name Dose Route Start Last Admin Trade Name Freq PRN Reason Stop Dose Admin Acetaminophen 650 mg 03/14/20 21:44 Acetaminophen 325 Mg Tablet PO Q6H PRN Mild Pain (1-3) or Fever Hydrocodone Bitart/Acetaminophen 1 tab 03/14/20 21:44 Hydrocodone/Acetaminophen (*Crx) 5-325 Mg Tablet PO Q6H PRN Pain Rated 4-6 Clonazepam 1 mg 03/15/20 09:00 03/16/20 09:29 Clonazepam (*Crx) 0.5 Mg Tablet PO 1 mg DAILY SPEEDY Administration Dextrose 12.5 gm 03/14/20 18:11 Dextrose 50% 25 Gm/50 Ml Syringe IV PUSH PRN PRN Hypoglycemia Protocol Duloxetine HCl 60 mg 03/15/20 09:00 03/16/20 09:25 Duloxetine Hcl 60 Mg Capsule.Dr PO 60 mg DAILY SPEEDY Administration Ezetimibe 10 mg 03/15/20 09:00 03/16/20 09:25 Ezetimibe 10 Mg Tablet PO 10 mg DAILY SPEEDY Administration Ergocalciferol 50,000 unit 03/19/20 09:00 Ergocalciferol 50,000 Unit Capsule PO WEEKLY SPEEDY Glucagon 1 mg 03/14/20 18:11 Glucagon For Inj 1 Mg Vial IM PRN PRN Hypoglycemia Protocol Glucose 15 gm 03/14/20 18:11 Glucose Oral Gel 15 Gm Of Glucse In 37.5 Gm Tube PO PRN PRN Hypoglycemia Protocol Dextrose 1,000 mls @ 100 mls/hr 03/14/20 18:11 Dextrose 5% 1,000 Ml IVPB PRN PRN Hypoglycemia Protocol Piperacillin Sod/Tazobactam Sod 2.25 gm in 50 mls @ 100 mls/hr 03/16/20 13:00 03/16/20 15:46 Zosyn 2.25 Gm/D5w 50 Ml IVPB 100 mls/hr Q8H SPEEDY Administration Insulin Aspart 3 - 6 units 03/15/20 08:00 03/16/20 17:36 Insulin Aspart (*Bkc) 100 Units/Ml SUB-Q 6 units TIDWM SPEEDY Administration Protocol Insulin Aspart 6 units 03/16/20 12:00 03/16/20 17:37 Insulin Aspart (*Bkc) 100 Units/Ml SUB-Q 6 units TIDWM [facility] Administration Insulin Human Regular 0 each 03/15/20 09:00 03/16/20 09:29 Home Medication Insulin Pump - Novolog SUB-Q Not Given DAILY [facility] Morphine Sulfate 2 mg 03/14/20 21:44 03/14/20 22:21 Morphine Sulfate (*Crx) 2 Mg/Ml Inj IV
[2020-03-16 21:38] LABS: Glucose Point of Care 450 (65-105)
[2020-03-16 22:00] VITALS: BP 111/57; PULSE 80; RESP 14; TEMP 37.1; O2SAT 96
[2020-03-17] MEDS: MORPHINE SULFATE (*CRX) 2 MG/ML INJ IV PUSH (01:29)
[2020-03-17 06:00] VITALS: BP 120/65; PULSE 89; RESP 16; TEMP 37.1; O2SAT 99
[2020-03-17 07:01] LABS: Estimated CRCL calculation 52 ml/min; Estimated Glomerular Filt Rate > 60
[2020-03-17 08:31] LABS: Glucose Point of Care 471 (65-105)
[2020-03-17] MEDS: INSULIN ASPART (*BKC) 100 UNITS/ML 10 UNITS SUB-Q ×3 (09:29→17:43)
[2020-03-17] MEDS: clonazePAM (*CRX) 0.5 MG TABLET 1 MG PO (09:30)
[2020-03-17] MEDS: PREGABALIN (*CRX) 75 MG CAPSULE PO ×2 (09:30→17:43)
[2020-03-17] MEDS: DULoxetine HCL 60 MG CAPSULE.DR PO (09:31)
[2020-03-17] MEDS: ROSUVASTATIN 10 MG TABLET 20 MG PO (09:31)
[2020-03-17] MEDS: EZETIMIBE 10 MG TABLET PO (09:31)
[2020-03-17 11:52] LABS: Glucose Point of Care 461 (65-105)
[2020-03-17 12:37] LABS: Vancomycin Trough 7.5 ug/mL (10.0-20.0)
--- NOTE | 2020-03-17 13:42 | WPDPN ---
Progress Note: A&P Additional Plan Diabetic neuropathic/ischemic ulceration right foot TMA site -The patient will go for incision and debridement of all necrotic soft tissue and bone right foot - I will discharge the patient on Wound Vac therapy in order to promote healing -Dr. Gonzalez will set the patient up for angioplasty once discharged from [facility] - The patient understands he is high risk for limb loss. Will continue to follow patient Dr. Loyd Exam Extrem: Other: Redness and drainage persists along the plantar and lateral aspect of the TMA site right foot. 5th metatarsal is visible and necrotic. Objective Data Vital Signs Vital Signs: Vital Signs - 24 hr 03/16/20 14:00 03/16/20 22:00 03/17/20 06:00 Temperature 36.8 C 37.1 C 37.1 C Pulse Rate 85 80 89 Respiratory Rate 18 14 16 Blood Pressure 109/54 L 111/57 L 120/65 Pulse Oximetry 100 96 99 Intake/Output Intake/Output: Intake & Output 03/14/20 03/15/20 03/16/20 03/17/20 23:59 23:59 23:59 23:59 Intake Total 1390 1820 1880 290 Output Total 750 850 700 250 Balance 726 250 6607 40 Meds/Results Medications: Active Medications Generic Name Dose Route Start Last Admin Trade Name Freq PRN Reason Stop Dose Admin Acetaminophen 650 mg 03/14/20 21:44 Acetaminophen 325 Mg Tablet PO Q6H PRN Mild Pain (1-3) or Fever Hydrocodone Bitart/Acetaminophen 1 tab 03/14/20 21:44 Hydrocodone/Acetaminophen (*Crx) 5-325 Mg Tablet PO Q6H PRN Pain Rated 4-6 Clonazepam 1 mg 03/15/20 09:00 03/17/20 09:30 Clonazepam (*Crx) 0.5 Mg Tablet PO 1 mg DAILY SPEEDY Administration Dextrose 12.5 gm 03/16/20 19:16 Dextrose 50% 25 Gm/50 Ml Syringe IV PUSH PRN PRN Hypoglycemia Protocol Duloxetine HCl 60 mg 03/15/20 09:00 03/17/20 09:31 Duloxetine Hcl 60 Mg Capsule. PO 60 mg DAILY SPEEDY Administration Ezetimibe 10 mg 03/15/20 09:00 03/17/20 09:31 Ezetimibe 10 Mg Tablet PO 10 mg DAILY SPEEDY Administration Ergocalciferol 50,000 unit 03/19/20 09:00 Ergocalciferol 50,000 Unit Capsule PO WEEKLY SPEEDY Glucagon 1 mg 03/16/20 19:16 Glucagon For Inj 1 Mg Vial IM PRN PRN Hypoglycemia Protocol Glucose 15 gm 03/16/20 19:16 Glucose Oral Gel 15 Gm Of Glucse In 37.5 Gm Tube PO PRN PRN Hypoglycemia Protocol Piperacillin Sod/Tazobactam Sod 2.25 gm in 50 mls @ 100 mls/hr 03/16/20 13:00 03/17/20 05:52 Zosyn 2.25 Gm/D5w 50 Ml IVPB Infused Q8H SPEEDY Infusion Dextrose 1,000 mls @ 100 mls/hr 03/16/20 19:16 Dextrose 5% 1,000 Ml IVPB PRN PRN Hypoglycemia Protocol Insulin Aspart 4 - 8 units 03/17/20 08:00 03/17/20 08:29 Insulin Aspart (*Bkc) 100 Units/Ml SUB-Q Not Given TIDWM [facility] Protocol Insulin Aspart 10 units 03/17/20 12:00 03/17/20 11:57 Insulin Aspart (*Bkc) 100 Units/Ml SUB-Q 10 units TIDWM [facility] Administration Insulin Glargine 9 units 03/17/20 21:00 Insulin Glargine (*Bkc) 100 Units/Ml 0.15 units/kg (9 units) SUB-Q [facility] Insulin Human Regular 0 each 03/15/20 09:00 03/17/20 09:30 Home Medication Insulin Pump - Novolog SUB-Q Not Given DAILY [facility] Morphine Sulfate 2 mg 03/14/20 21:44 03/17/20 01:29 Morphine Sulfate (*Crx) 2 Mg/Ml Inj IV PUSH 2 mg Q4H PRN Administration Pain Rated 7-10 Pregabalin 75 mg 03/15/20 09:00 03/17/20 09:30 Pregabalin (*Crx) 75 Mg Capsule PO 75 mg BID [facility] Administration Rosuvastatin Calcium 20 mg 03/15/20 09:00 03/17/20 09:31 Rosuvastatin 10 Mg Tablet PO 20 mg DAILY SPEEDY Administration Labs Labs: Laboratory Results - last 24 hr 03/16/20 03/16/20 03/17/20 17:32 20:58 05:49 Creatinine 1.10 Estim Creat Clear Calc 52 Estimated GFR > 60 POC Capillary Glucose 385 H 450 H Vancomycin Trough 03/17/20 03/17/20 03/17/20 08:16 11:40 11:47 Creatinine Estim Creat Clear Calc Estimated GFR P
[2020-03-17 14:00] VITALS: BP 125/74; PULSE 109; RESP 20; TEMP 36.7; O2SAT 92
--- NOTE | 2020-03-17 14:27 | PM.IMPN ---
Progress Note: A&P Assessment and Plan (1) Diabetic infection of right foot: Code(s): E11.628 - Type 2 diabetes mellitus with other skin complications; L08.9 - Local infection of the skin and subcutaneous tissue, unspecified Status: Acute Assessment and Plan: Switch pt to zosyn pt has pseudomonas in the wound. DR Loyd is consulted podiatry MD. Betadine and kerlex on wound. Unfortunately wcc not improving enough, vascular surgery states there is a occlusion. Pt can have debridement here and then to discharge with DR Gonzalez follow up. (2) Type 1 diabetes mellitus with hyperglycemia: Code(s): E10.65 - Type 1 diabetes mellitus with hyperglycemia Status: Acute Assessment and Plan: Pt is on a insulin pump Not using it properly today. Sugars are high. Change to high dose insulin SSI and 9 units with meals. (3) Chronic kidney disease, stage 3 (moderate): Code(s): N18.3 - Chronic kidney disease, stage 3 (moderate) Status: Acute Assessment and Plan: Creat is 1.2, continue to monitor (4) Anemia in chronic kidney disease: Code(s): N18.9 - Chronic kidney disease, unspecified; D63.1 - Anemia in chronic kidney disease Status: Inactive Assessment and Plan: HB is 8, continue to monitor (5) Obstructive sleep apnea: Code(s): G47.33 - Obstructive sleep apnea (adult) (pediatric) Status: Inactive Assessment and Plan: CPAP IS AVAILABLE (6) Mixed hyperlipidemia: Code(s): E78.2 - Mixed hyperlipidemia Status: Acute Assessment and Plan: pt is on zetia Subjective Date/time seen: 03/17/20 14:27 Interval history: 65-year-old male with type 1 diabetes mellitus, peripheral vascular disease, chronic kidney disease, and chronic anemia who presented to the emergency department earlier today from Dr. Loyd'office for further evaluation of an infected diabetic foot wound. 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 Pt looks sleepy, sugars are running high. Pt is on a insulin pump unsure if he is using it properly. Unfortunately wcc not improving enough, vascular surgery states there is a occlusion. Pt can have debidement here and then to discharge with DR Gonzalez follow up. Review of Systems Review of Systems: All systems reviewed & are unremarkable except as noted in HPI and below Exam Narrative: Exam Narrative: General: Chronically ill-appearing male Respiratory: Lungs are clear to auscultation bilaterally. Cardiovascular: Regular rate and rhythm with S1-S2. Gastrointestinal: Abdomen is soft, nontender, and nondistended with positive bowel sounds. Skin: Shallow ulcerated area at the previous transmetatarsal amputation site of the right lateral foot Extremities: No cyanosis, clubbing, or edema. Neurological: No gross focal deficits to casual conversation. Psychiatric: Cooperative. But tired appearing Objective Data Vital Signs Vital Signs: Vital Signs - 24 hr 03/16/20 22:00 03/17/20 06:00 Temperature 37.1 C 37.1 C Pulse Rate 80 89 Respiratory Rate 14 16 Blood Pressure 111/57 L 120/65 Pulse Oximetry 96 99 Intake/Output Intake/Output: Intake & Output 03/14/20 03/15/20 03/16/20 03/17/20 23:59 23:59 23:59 23:59 Intake Total 1390 1820 1880 290 Output Total 750 850 700 250 Balance 087 688 3126 40 Meds/Results Medications: Active Medications Generic Name Dose Route Start Last Admin Trade Name Freq PRN Reason Stop Dose Admin Acetaminophen 650 mg 03/14/20 21:44 Acetaminophen 325 Mg Tablet PO Q6H PRN Mild Pain (1-3) or Fever Hydrocodone Bitart/Acetaminophen 1 tab 03/14/20 21:44 Hydrocodone/Acetaminophen (*Crx) 5-325 Mg Tablet PO Q6H PRN Pain Rated 4-6 Clonazepam 1 mg 03/15/20 09:00 03/17/20 09:30 Clonazepam (*Crx) 0.5 Mg Tablet
[2020-03-17 18:09] LABS: Glucose Point of Care 489 (65-105)
[2020-03-17 20:50] VITALS: PULSE 109; RESP 20; O2SAT 92
[2020-03-17] MEDS: INSULIN GLARGINE (*BKC) 100 UNITS/ML 9 UNITS SUB-Q (21:18)
[2020-03-17 21:25] LABS: Glucose Point of Care 480 (65-105)
[2020-03-17 22:00] VITALS: BP 115/51; PULSE 81; RESP 20; TEMP 36.9; O2SAT 99
[2020-03-18] VITALS (13 sets, daily range): BP systolic 110–148; BP diastolic 53–73; PULSE 68–79; RESP 16–20; TEMP 36–37.1; O2SAT 93–100; BMI 18.4
[2020-03-18 06:32] LABS: Glucose Point of Care 386 (65-105)
[2020-03-18 06:35] LABS: Hematocrit 25.2 % (42.0-52.0); Hemoglobin 8.6 g/dL (14.0-18.0); Mean Corpuscular HGB Conc 34.1 g/dl (32-36); Mean Corpuscular Hemoglobin 31.7 pg (26-34); Mean Platelet Volume 9.5 fl (7.4-10.4); Platelet Count Result 549 k/mm3 (150-375); Red Blood Count 2.71 M/mm3 (4.6-6.20); Red Cell Distribution Width 11.8 % (11.5-14.5); White Blood Count 12.3 K/mm3 (4.5-10.0)
[2020-03-18 07:02] LABS: Anion Gap 6 mmol/L (8-16); Blood Urea Nitrogen 30 mg/dL (9-20); Calcium 9.1 mg/dL (8.4-10.2); Carbon Dioxide 35 mmol/L (22-30); Chloride 94 mmol/L (98-107); Estimated CRCL calculation 52 ml/min; Estimated Glomerular Filt Rate > 60; Glucose 411 mg/dL (75-110); Potassium 4.2 mmol/L (3.4-5.0); Sodium 135 mmol/L (137-145)
--- NOTE | 2020-03-18 07:19 | WPDHPUPDATE1 ---
History and Physical Update Update Date/Time: 03/18/20 07:19 History and Physical has been reviewed, including an updated exam of the patient. There are NO changes in the patient's condition. Risks, benefits, and alternatives have been discussed and questions answered. Patient agrees to proceed with procedure.
[2020-03-18] MEDS: PREGABALIN (*CRX) 75 MG CAPSULE PO ×2 (08:58→17:34)
[2020-03-18] MEDS: ROSUVASTATIN 10 MG TABLET 20 MG PO (08:58)
[2020-03-18] MEDS: clonazePAM (*CRX) 0.5 MG TABLET 1 MG PO (08:58)
[2020-03-18] MEDS: DULoxetine HCL 60 MG CAPSULE.DR PO (08:58)
[2020-03-18] MEDS: EZETIMIBE 10 MG TABLET PO (08:58)
--- NOTE | 2020-03-18 11:00 | PCNFU ---
Nutrition Follow-Up Complete: Increased protein needs related to wound on right lateral food amputation site as evidence by daily needs of 72g protien for healing Goal: PO intake of 75% or greater of diet and supplements to aid in wound healing Patient is meeting current goal. No new goal. Pt current nutrition is NPO. Nutrition recommendation: advancing to [facility] per MD orders. Last recorded weight is 60 kg. No new weight. Bowel Motility:+BM 03/18. Labs Reviewed:Glu 411,BUN 30, Na 135 Meds Noted:Zosyn,Cymbalta,Lantus,Crestor. Additional Notes: Patient is currently NPO for surgery. He had been on a diabetic diet, eating 100% of meals. Diet supplements: Jos BID and Glucerna shake BID for wound healing. Agree with diet orders. Monitoring: PO intake, wt, labs, skin every five days
[2020-03-18 11:17] LABS: Glucose Point of Care 308 (65-105)
--- NOTE | 2020-03-18 13:34 | PM.IMPN ---
Progress Note: A&P Assessment and Plan (1) Diabetic infection of right foot: Code(s): E11.628 - Type 2 diabetes mellitus with other skin complications; L08.9 - Local infection of the skin and subcutaneous tissue, unspecified Status: Acute Assessment and Plan: Switch pt to zosyn pt has pseudomonas in the wound. DR Loyd is consulted podiatry MD. Betadine and kerlex on wound. Unfortunately wcc not improving enough, vascular surgery states there is a occlusion. Pt can have debridement here and then to discharge with DR Gonzalez follow up. (2) Type 1 diabetes mellitus with hyperglycemia: Code(s): E10.65 - Type 1 diabetes mellitus with hyperglycemia Status: Acute Assessment and Plan: Pt is on a insulin pump Not using it properly today. Sugars are high. Change to high dose insulin SSI and 10 units with meals. (3) Chronic kidney disease, stage 3 (moderate): Code(s): N18.3 - Chronic kidney disease, stage 3 (moderate) Status: Acute Assessment and Plan: Creat is 1.1, continue to monitor (4) Anemia in chronic kidney disease: Code(s): N18.9 - Chronic kidney disease, unspecified; D63.1 - Anemia in chronic kidney disease Status: Inactive Assessment and Plan: HB is 8, continue to monitor (5) Obstructive sleep apnea: Code(s): G47.33 - Obstructive sleep apnea (adult) (pediatric) Status: Inactive Assessment and Plan: CPAP IS AVAILABLE (6) Mixed hyperlipidemia: Code(s): E78.2 - Mixed hyperlipidemia Status: Acute Assessment and Plan: pt is on zetia Subjective Date/time seen: 03/18/20 13:34 Interval history: 65-year-old male with type 1 diabetes mellitus, peripheral vascular disease, chronic kidney disease, and chronic anemia who presented to the emergency department earlier today from Dr. Loyd'office for further evaluation of an infected diabetic foot wound. 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 Pt can have debridement here and then to discharge with DR Gonzalez follow up. Pt will need vac therapy on dischrage Review of Systems Review of Systems: All systems reviewed & are unremarkable except as noted in HPI and below Exam Narrative: Exam Narrative: General: Chronically ill-appearing male Respiratory: Lungs are clear to auscultation bilaterally. Cardiovascular: Regular rate and rhythm with S1-S2. Gastrointestinal: Abdomen is soft, nontender, and nondistended with positive bowel sounds. Skin: Shallow ulcerated area at the previous transmetatarsal amputation site of the right lateral foot with dressing Extremities: No cyanosis, clubbing, or edema. Neurological: No gross focal deficits to casual conversation. Psychiatric: Cooperative. But tired appearing Objective Data Vital Signs Vital Signs: Vital Signs - 24 hr 03/17/20 14:00 03/17/20 20:50 03/17/20 22:00 Temperature 36.7 C 36.9 C Pulse Rate 109 H 109 H 81 Respiratory Rate 20 20 20 Blood Pressure 125/74 115/51 L Pulse Oximetry 92 92 99 03/18/20 06:00 Temperature 36.4 C L Pulse Rate 79 Respiratory Rate 18 Blood Pressure 122/59 L Pulse Oximetry 96 Intake/Output Intake/Output: Intake & Output 03/15/20 03/16/20 03/17/20 03/18/20 23:59 23:59 23:59 23:59 Intake Total 1820 1880 780 50 Output Total 880 248 6109 750 Balance 970 1180 270 700 Meds/Results Medications: Active Medications Generic Name Dose Route Start Last Admin Trade Name Freq PRN Reason Stop Dose Admin Acetaminophen 650 mg 03/14/20 21:44 Acetaminophen 325 Mg Tablet PO Q6H PRN Mild Pain (1-3) or Fever Hydrocodone Bitart/Acetaminophen 1 tab 03/14/20 21:44 Hydrocodone/Acetaminophen (*Crx) 5-325 Mg Tablet PO Q6H PRN Pain Rated 4-6 Clonazepam 1 mg
--- NOTE | 2020-03-18 14:00 | PC.NURSE ---
Patient to OR per bed.
--- NOTE | 2020-03-18 14:39 | WPDANESEPPF ---
Anes - Initial Pre Proc Eval Procedure: Operation Date: 03/18/20 15:00 Proposed Procedures p Incision and Debridement Of All Necrotic Soft Tissue and Bone Right Foot - Jaspreet Loyd JR, MD Date/Time: 03/18/20 14:39 Surgeon: Evert Pre Op Diagnosis: Necrotic Ulceration Right Foot Patient Data Age: 65 Gender: M Height: 1.8 m Weight: 60 kg Last Vital Signs Temp 37.1 C 03/18/20 14:22 Pulse 79 03/18/20 14:22 Resp 20 03/18/20 14:22 BP 129/53 L 03/18/20 14:22 Pulse Ox 98 03/18/20 14:22 Allergies Allergy/AdvReac Type Severity Reaction Status Date / Time No Known Allergies Allergy Unknown Verified 03/18/20 14:14 Home Medications Medication Instructions Recorded Confirmed Type blood-glucose meter,continuous #1 each 03/16/19 03/17/20 Rx blood-glucose sensor #3 each 03/16/19 03/17/20 Rx blood-glucose transmitter #1 each 03/16/19 03/17/20 Rx aspirin [Aspirin Childrens] 81 mg PO DAILY 07/20/19 03/14/20 History clonazepam 1 mg tablet 1 mg PO DAILY #30 tablet 10/08/19 03/14/20 Rx pregabalin 75 mg capsule 75 mg PO BID #180 cap 10/08/19 03/14/20 Rx duloxetine 60 mg capsule,delayed 60 mg PO DAILY #90 cap 10/14/19 03/14/20 Rx release cholecalciferol (vitamin D3) 1,250 1,250 mcg PO WEEKLY #14 cap 11/03/19 03/14/20 Rx mcg (50,000 unit) capsule ezetimibe 10 mg tablet 10 mg PO DAILY 11/24/19 03/14/20 History insulin aspart U-100 100 unit/mL See Rx Instructions .ROUTE 02/18/20 03/14/20 Rx subcutaneous solution .COMPLEX #40 ml rosuvastatin 20 mg tablet 20 mg PO DAILY 02/21/20 03/14/20 History Laboratory Tests 03/17/20 03/17/20 03/18/20 17:08 21:17 05:45 WBC 12.3 K/mm3 H K/mm3 (4.5-10.0) RBC 2.71 M/mm3 L M/mm3 (4.6-6.20) Hgb 8.6 g/dL L g/dL (14.0-18.0) Hct 25.2 % L % (42.0-52.0) MCV 93.0 fl fl (80-100) MCH 31.7 pg pg (26-34) MCHC 34.1 g/dl g/dl (32-36) RDW 11.8 % % (11.5-14.5) Plt Count 549 k/mm3 H k/mm3 (150-375) MPV 9.5 fl fl (7.4-10.4) Sodium Potassium Chloride Carbon Dioxide Anion Gap BUN Creatinine Estim Creat Clear Calc Estimated GFR Glucose POC Capillary Glucose 489 mg/dl H mg/dl 480 mg/dl H mg/dl (65-105) (65-105) Calcium 03/18/20 03/18/20 03/18/20 05:45 06:30 11:06 WBC RBC Hgb Hct MCV MCH MCHC RDW Plt Count MPV Sodium 135 mmol/L L mmol/L (137-145) Potassium 4.2 mmol/L mmol/L (3.4-5.0) Chloride 94 mmol/L L mmol/L (98-107) Carbon Dioxide 35 mmol/L H mmol/L (22-30) Anion Gap 6 mmol/L L mmol/L (8-16) BUN 30 mg/dL H mg/dL (9-20) Creatinine 1.10 mg/dL mg/dL (0.7-1.3) Estim Creat Clear Calc 52 ml/min ml/min Estimated GFR > 60 (59 - ) Glucose 411 mg/dL H mg/dL (75-110) POC Capillary Glucose 386 mg/dl H mg/dl 308 mg/dl H mg/dl (65-105) (65-105) Calcium 9.1 mg/dL mg/dL (8.4-10.2) Patient hx anesthesia problems: none Family hx anesthesia problems: none [facility] Past Medical History Medical History (Updated 03/14/20 @ 18:06 by Gladis Laureano PA-C) Ambulatory dysfunction 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 Anemia in chronic kidney disease Anxiety Chronic kidney disease, stage 3 (moderate) Baseline creatinine is between 1.3 and 1.40. Closed patellar sleeve fracture of left knee Depression Insomnia Kidney stones Major depressive disorder, recurrent, moderate Mixed hyperlipidemia Obstructive sleep apnea Peripheral vascular disease Type 1 diabetes mellitus Complicated by diabetic retinopathy, nephropathy, and
[2020-03-18] MEDS: LACTATED RINGERS 1,000 ML 30 ML IV CONT (16:15)
[2020-03-18] MEDS: BUPIVACAINE HCL 0.5% PF 30 ML VIAL INFILTRATE (16:20)
[2020-03-18] MEDS: LIDOCAINE HCL 2% LOCAL INJ 20 ML VIAL 10 ML INFILTRATE (16:20)
[2020-03-18 16:39] LABS: Glucose Point of Care 303 (65-105)
--- NOTE | 2020-03-18 16:46 | PM.OP ---
Procedure Note - Brief Procedure Note - Brief Date of procedure: 03/18/20 Pre-op diagnosis: Necrotic Ulceration Right Foot Post-op diagnosis: same Procedure performed: Incision and debridement of all necrotic soft tissue and bone Anesthesia: GLMA Surgeon: Jaspreet Loyd JR, DPM Estimated blood loss (mL): 1 Complications: No immediate complications Condition: stable Disposition: same day
[2020-03-18] MEDS: INSULIN HUMAN REGULAR (*BKC) 100 UNITS/ML 10 UNITS SUB-Q (16:56)
--- NOTE | 2020-03-18 17:20 | PC.NURSE ---
Pt returned from OR per bed.
[2020-03-18] MEDS: INSULIN GLARGINE (*BKC) 100 UNITS/ML 10 UNITS SUB-Q (22:15)
[2020-03-18 22:33] LABS: Glucose Point of Care 268 (65-105)
[2020-03-19] VITALS: BP 103/58; PULSE 76; RESP 20; TEMP 36.6; O2SAT 96
--- NOTE | 2020-03-19 00:19 | OP_ITS ---
DATE OF PROCEDURE: 03/18/2020 PREOPERATIVE DIAGNOSIS: Necrotic ischemic diabetic ulceration lateral aspect of the right foot. POSTOPERATIVE DIAGNOSIS: Necrotic ischemic diabetic ulceration lateral aspect of the right foot. PROCEDURE: Incision and debridement of all necrotic soft tissue and bone, right foot. PATHOLOGY: Deep aerobic and anaerobic wound culture swab taken and sent for culture and sensitivities, resected 5th metatarsal bone sent for histopathology and gross. ANESTHESIA: Local with monitored anesthesia care. HEMOSTASIS: Pneumatic ankle tourniquet at 250 mmHg. ESTIMATED BLOOD LOSS: 5 cc. MATERIALS USED: Surgicel, Versajet system. INJECTABLES: 20 cc of 2% lidocaine plain and 0.5% Marcaine plain injected preoperatively. COMPLICATIONS: None. PROCEDURE IN DETAIL: Under mild sedation, the patient was brought to the operating room, placed on the operating table in the supine position. Pneumatic high calf tourniquet was placed about the patient's right calf. Following IV sedation, local anesthesia was obtained about the right ankle utilizing 20 cc of 2% lidocaine plain and 0.5% Marcaine plain. The foot was then scrubbed, prepped, and draped in the usual aseptic manner. An Esmarch bandage was then used to examine the patient's right foot and pneumatic ankle tourniquet was then inflated. Attention was directed to the lateral aspect of the TMA site of the right foot, where there was significant malodorous drainage as well as necrotic tissue noted. The distal aspect of the 5th metatarsal was also visible at the ulceration site plantar laterally. At this point, a 15 blade was used to resect all necrotic soft tissue. A sagittal bone saw was used to resect the necrotic 5th metatarsal, which was visualized through the ulceration. The resection of the 5th metatarsal was performed to healthy bleeding bone was noted. Next, utilizing the Versajet, all remaining necrotic soft tissue was debrided from the plantar aspect, dorsal aspect, and lateral aspect of the TMA site. This debridement was performed until healthy bleeding tissue was noted. The wound site was then flushed with copious amounts of sterile saline, approximately 1 L of sterile saline was used. Next, Surgicel was applied as a hemostatic agent overlying the wound. This is also bacterial static, which will help prevent worsening of infection. Next, Adaptic, 4x4s, Shamika roll, and Coban were then used to dress the large wound. The pneumatic calf tourniquet was then deflated. The patient should be nonweightbearing. The patient did very well with the procedure and anesthesia. He was transferred back to the medical-surgical floor and readmitted for IV antibiotics. The patient will be seen on the floor tomorrow morning in order to make certain that there was adequate healing across the resection site and that there was no continued infection. The wound VAC will be applied postoperatively before discharge. Infectious Disease consult was obtained. The patient will go and see the vascular specialist early next week for revascularization as discussed with Dr. Gonzalez. The patient will be admitted back to the floor with the following instructions: 1. Keep the dressing clean, dry, and intact. Dr. Loyd will change tomorrow morning. 2. The patient should be strictly nonweightbearing. 3. The patient should elevate the right foot when at rest. 4. The patient should contact Dr. Loyd if there are any issues postoperatively. D I MT: Dante NELSON
[2020-03-19 04:00] VITALS: BP 137/70; PULSE 82; RESP 20; TEMP 36.4; O2SAT 97
[2020-03-19] MEDS: INSULIN ASPART (*BKC) 100 UNITS/ML 10 UNITS SUB-Q ×3 (08:28→17:11)
[2020-03-19] MEDS: INSULIN ASPART (*BKC) 100 UNITS/ML SUB-Q ×2 (08:29→12:51)
[2020-03-19] MEDS: DULoxetine HCL 60 MG CAPSULE.DR PO (08:30)
[2020-03-19] MEDS: PREGABALIN (*CRX) 75 MG CAPSULE PO ×2 (08:30→17:10)
[2020-03-19] MEDS: EZETIMIBE 10 MG TABLET PO (08:31)
[2020-03-19] MEDS: ROSUVASTATIN 10 MG TABLET 20 MG PO (08:31)
[2020-03-19] MEDS: clonazePAM (*CRX) 0.5 MG TABLET 1 MG PO (08:36)
[2020-03-19 08:48] LABS: Glucose Point of Care 268 (65-105)
[2020-03-19 10:00] VITALS: BP 107/51; PULSE 77; RESP 16; TEMP 36.6; O2SAT 99
--- NOTE | 2020-03-19 12:52 | WPDPN ---
Progress Note: A&P Additional Plan 1 days s/p incision and debridement of necrotic soft tissue and bone right foot -Stable for discharge per podiatry standpoint once wound vac is applied. Home health should change wound VAC 3 days a week, run continuous at 125mmHG. -The patient will be treated by Dr. Gonzalez for revascularization of the right lower extremity next week - I did change dressing no active arterial bleeding noted. Currently the wound can be changed daily Santyl should be applied daily with 4x4 gauze, kerlix roll and Shreyas Wrap until wound Vac is applied. - Antiobiotic management per ID - Patient to be non weight bearing with crutches/knee scooter until wound heals. -The patient will follow up in my office one week after discharge for evaluation of wound. Dr. Loyd Exchange line: [phone] Exam Extrem: Other: Wound the the right foot has dark fibrous tissue after removal of silvercell hemostatic agent. No periwound erythema. No active arterial bleeding. Objective Data Vital Signs Vital Signs: Vital Signs - 24 hr 03/18/20 14:00 03/18/20 14:22 03/18/20 16:15 Temperature 36.7 C 37.1 C 36.0 C L Pulse Rate 69 79 68 Respiratory Rate 18 20 16 Blood Pressure 115/58 L 129/53 L 122/62 Pulse Oximetry 96 98 99 03/18/20 16:30 03/18/20 16:45 03/18/20 17:00 Temperature Pulse Rate 76 78 77 Respiratory Rate 16 16 16 Blood Pressure 132/57 L 137/61 148/73 H Pulse Oximetry 100 100 93 03/18/20 17:10 03/18/20 17:25 03/18/20 17:40 Temperature Pulse Rate 77 72 70 Respiratory Rate 16 16 16 Blood Pressure 145/70 H 123/59 L 112/55 L Pulse Oximetry 93 96 95 03/18/20 17:55 03/18/20 18:56 03/18/20 19:26 Temperature 36.7 C 36.6 C Pulse Rate 68 74 77 Respiratory Rate 16 18 20 Blood Pressure 125/63 130/71 110/60 Pulse Oximetry 97 98 97 03/19/20 00:00 03/19/20 04:00 03/19/20 10:00 Temperature 36.6 C 36.4 C 36.6 C Pulse Rate 76 82 77 Respiratory Rate 20 20 16 Blood Pressure 103/58 L 137/70 107/51 L Pulse Oximetry 96 97 99 Intake/Output Intake/Output: Intake & Output 03/16/20 03/17/20 03/18/20 03/19/20 23:59 23:59 23:59 23:59 Intake Total 1880 780 590 510 Output Total 700 1050 1900 750 Balance 1669 -174 -6201 -300 Meds/Results Medications: Active Medications Generic Name Dose Route Start Last Admin Trade Name Freq PRN Reason Stop Dose Admin Acetaminophen 650 mg 03/14/20 21:44 Acetaminophen 325 Mg Tablet PO Q6H PRN Mild Pain (1-3) or Fever Hydrocodone Bitart/Acetaminophen 1 tab 03/14/20 21:44 Hydrocodone/Acetaminophen (*Crx) 5-325 Mg Tablet PO Q6H PRN Pain Rated 4-6 Clonazepam 1 mg 03/15/20 09:00 03/19/20 08:36 Clonazepam (*Crx) 0.5 Mg Tablet PO 1 mg DAILY SPEEDY Administration Dextrose 12.5 gm 03/16/20 19:16 Dextrose 50% 25 Gm/50 Ml Syringe IV PUSH PRN PRN Hypoglycemia Protocol Duloxetine HCl 60 mg 03/15/20 09:00 03/19/20 08:30 Duloxetine Hcl 60 Mg Capsule.Dr PO 60 mg DAILY SPEEDY Administration Ezetimibe 10 mg 03/15/20 09:00 03/19/20 08:31 Ezetimibe 10 Mg Tablet PO 10 mg DAILY SPEEDY Administration Ergocalciferol 50,000 unit 03/19/20 09:00 Ergocalciferol 50,000 Unit Capsule PO WEEKLY SPEEDY Glucagon 1 mg 03/16/20 19:16 Glucagon For Inj 1 Mg Vial IM PRN PRN Hypoglycemia Protocol Glucose 15 gm 03/16/20 19:16 Glucose Oral Gel 15 Gm Of Glucse In 37.5 Gm Tube PO PRN PRN Hypoglycemia Protocol Piperacillin Sod/Tazobactam Sod 2.25 gm in 50 mls @ 100 mls/hr 03/16/20 13:00 03/19/20 05:55 Zosyn 2.25 Gm/D5w 50 Ml IVPB Infused Q8H SPEEDY Infusion Dextrose 1,000 mls @ 100 mls/hr 03/16/20 19:16 Dextrose 5% 1,000 Ml IVPB PRN PRN Hypoglycemia Protocol Insulin Aspart 4 - 8 units 03/17/20 08:00 03/19/20 08:29 Insulin Aspart (*Bkc) 100 Units/Ml SUB-Q 5 units TIDWM SPEEDY Administration Protocol Insulin Aspart 10 units
[2020-03-19] MEDS: ERGOCALCIFEROL 50,000 UNIT CAPSULE 50000 UNITS PO (12:53)
--- NOTE | 2020-03-19 13:07 | PM.DS ---
DS: Admitting Diagnosis Admitting Diagnosis Admitting Diagnosis: Necrotic Ulceration Right Foot DS: Discharge Diagnosis Discharge Diagnosis (1) Diabetic infection of right foot: Code(s): E11.628 - Type 2 diabetes mellitus with other skin complications; L08.9 - Local infection of the skin and subcutaneous tissue, unspecified Status: Acute Assessment and Plan: Pt is on IV zosyn pt has pseudomonas in the wound. DR Loyd is consulted podiatry MD. He advices IV abx and dressing changes. Unfortunately pts wcc not improving enough, pt can have debridement here and then to discharge with DR Anguiano follow up. Vascular surgery states there is a occlusion. (2) Type 1 diabetes mellitus with hyperglycemia: Code(s): E10.65 - Type 1 diabetes mellitus with hyperglycemia Status: Acute Assessment and Plan: Pt is on a insulin pump Not using it properly today. Change to high dose insulin 10 units and 10 units with meals. Pt can go back on his insulin pump on discharge. (3) Chronic kidney disease, stage 3 (moderate): Code(s): N18.3 - Chronic kidney disease, stage 3 (moderate) Status: Acute Assessment and Plan: Creat is 1.1, continue to monitor (4) Anemia in chronic kidney disease: Code(s): N18.9 - Chronic kidney disease, unspecified; D63.1 - Anemia in chronic kidney disease Status: Inactive Assessment and Plan: HB is 8, continue to monitor (5) Obstructive sleep apnea: Code(s): G47.33 - Obstructive sleep apnea (adult) (pediatric) Status: Inactive Assessment and Plan: CPAP IS AVAILABLE (6) Mixed hyperlipidemia: Code(s): E78.2 - Mixed hyperlipidemia Status: Acute Assessment and Plan: pt is on zetia DS: Summary Time Spent with Patient Time attestation: Total time spent providing and/or coordinating discharge services:40 minutes on day of dischrage Exam Narrative: Exam Narrative: General: Chronically ill-appearing male Respiratory: Lungs are clear to auscultation bilaterally. Cardiovascular: Regular rate and rhythm with S1-S2. Gastrointestinal: Abdomen is soft, nontender, and nondistended with positive bowel sounds. Skin: R foot with dressing Extremities: No cyanosis, clubbing, or edema. Neurological: No gross focal deficits to casual conversation. Psychiatric: Cooperative. But tired appearing DS: Data Data Completed and Pending Pending studies at discharge: Pending at discharge 03/18/20 16:04 Surgical [PTH] Routine Labs on day of discharge: Labs from last 24 hours 03/19/20 03/18/20 03/18/20 08:27 22:14 16:37 POC Capillary Glucose 268 H 268 H 303 H Preliminary micro results at discharge 03/14/20 11:41 Blood Culture - Preliminary Blood 03/14/20 11:13 Blood Culture - Preliminary Blood Discharge Plan Discharge Attending physician on discharge: Eden Maloney Consulting providers: Jaspreet Loyd Discharging Clinician: Eden Maloney Anticipated Discharge Date/Time: 03/19/20 17:00 Patient Disposition: Home Health Service Activity: follow weight bearing status Diet: diabetic Wound Care Instructions: follow printed instructions Discharge Instructions: Per Care Coordination: [facility] RN for wound vac care. [phone], [facility] Wound Vac. Please call Sav with any concerns: [phone]. Pt discharged with wound vac Pt to follow with DR ANGUIANO vascular surgery for vascular occlusion in his right leg Pt to start back on his insulin pump Patient Instructions: Antibiotic Form, Diabetic Foot Ulcers (DC) Stand Alone Forms: General Discharge Information Follow-up/Referrals: Jaspreet Loyd JR, MD [Physician] - 1 Week Haley Orantes MD [Primary Care Provider] - Discharge Medications: New hydrocodone-acetaminophen 5-325 mg Tablet 1 tab PO Q6H PRN (Reason: Pain Rated 4-6) Qty: 20 RF: 0 levofloxacin 500
[2020-03-19 14:00] VITALS: BP 118/59; PULSE 71; RESP 16; TEMP 36.6; O2SAT 100
--- NOTE | 2020-03-19 14:08 | PM.IMPN ---
Progress Note: A&P Assessment and Plan (1) Diabetic infection of right foot: Code(s): E11.628 - Type 2 diabetes mellitus with other skin complications; L08.9 - Local infection of the skin and subcutaneous tissue, unspecified Status: Acute Assessment and Plan: Pt is on IV zosyn pt has pseudomonas in the wound. DR Loyd is consulted podiatry MD. He advices IV abx and dressing changes. Unfortunately pts wcc not improving enough, pt had debridement here already and then to discharge with DR Gonzalez follow up. Vascular surgery states there is a occlusion. (2) Type 1 diabetes mellitus with hyperglycemia: Code(s): E10.65 - Type 1 diabetes mellitus with hyperglycemia Status: Acute Assessment and Plan: Pt is on a insulin pump Not using it properly today. Change to high dose insulin 10 units and 10 units with meals. Pt can go back on his insulin pump on discharge. (3) Chronic kidney disease, stage 3 (moderate): Code(s): N18.3 - Chronic kidney disease, stage 3 (moderate) Status: Acute Assessment and Plan: Creat is 1.1, continue to monitor (4) Anemia in chronic kidney disease: Code(s): N18.9 - Chronic kidney disease, unspecified; D63.1 - Anemia in chronic kidney disease Status: Inactive Assessment and Plan: HB is 8, continue to monitor (5) Obstructive sleep apnea: Code(s): G47.33 - Obstructive sleep apnea (adult) (pediatric) Status: Inactive Assessment and Plan: CPAP IS AVAILABLE (6) Mixed hyperlipidemia: Code(s): E78.2 - Mixed hyperlipidemia Status: Acute Assessment and Plan: pt is on zetia Subjective Date/time seen: 03/19/20 14:08 Interval history: 65-year-old male with type 1 diabetes mellitus, peripheral vascular disease, chronic kidney disease, and chronic anemia who presented to the emergency department earlier today from Dr. Loyd'office for further evaluation of an infected diabetic foot wound. 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 Pt had debridement here and then to discharge with DR Gonzalez follow up. Pt will need vac therapy on dischrage pt needs vac theraphy placed prior to discharge. Hold discharge until this is complete. Review of Systems Review of Systems: All systems reviewed & are unremarkable except as noted in HPI and below Exam Narrative: Exam Narrative: General: Chronically ill-appearing male Respiratory: Lungs are clear to auscultation bilaterally. Cardiovascular: Regular rate and rhythm with S1-S2. Gastrointestinal: Abdomen is soft, nontender, and nondistended with positive bowel sounds. Skin: R foot with dressing Extremities: No cyanosis, clubbing, or edema. Neurological: No gross focal deficits to casual conversation. Psychiatric: Cooperative. But tired appearing Objective Data Vital Signs Vital Signs: Vital Signs - 24 hr 03/18/20 14:22 03/18/20 16:15 03/18/20 16:30 Temperature 37.1 C 36.0 C L Pulse Rate 79 68 76 Respiratory Rate 20 16 16 Blood Pressure 129/53 L 122/62 132/57 L Pulse Oximetry 98 99 100 03/18/20 16:45 03/18/20 17:00 03/18/20 17:10 Temperature Pulse Rate 78 77 77 Respiratory Rate 16 16 16 Blood Pressure 137/61 148/73 H 145/70 H Pulse Oximetry 100 93 93 03/18/20 17:25 03/18/20 17:40 03/18/20 17:55 Temperature Pulse Rate 72 70 68 Respiratory Rate 16 16 16 Blood Pressure 123/59 L 112/55 L 125/63 Pulse Oximetry 96 95 97 03/18/20 18:56 03/18/20 19:26 03/19/20 00:00 Temperature 36.7 C 36.6 C 36.6 C Pulse Rate 74 77 76 Respiratory Rate 18 20 20 Blood Pressure 130/71 110/60 103/58 L Pulse Oximetry 98 97 96 03/19/20 04:00 03/19/20 10:00 Temperature 36.4 C 36.6 C Pulse Rate 82 77 Respiratory Rate 20 16 Blood Pressure 137/70 107/51 L Pulse Oxi
[2020-03-19 17:23] LABS: Glucose Point of Care 138 (65-105)
[2020-03-19] MEDS: INSULIN GLARGINE (*BKC) 100 UNITS/ML 10 UNITS SUB-Q (20:20)
[2020-03-19 20:41] LABS: Glucose Point of Care 269 (65-105)
[2020-03-19 21:18] LABS: Glucose Point of Care 102 (65-105)
[2020-03-19 22:00] VITALS: BP 121/62; PULSE 75; RESP 20; TEMP 36.8; O2SAT 97
[2020-03-20 06:00] VITALS: BP 130/70; PULSE 76; RESP 20; TEMP 36.8; O2SAT 97
[2020-03-20 08:00] VITALS: PULSE 76; RESP 20; O2SAT 97
[2020-03-20] MEDS: PREGABALIN (*CRX) 75 MG CAPSULE PO ×2 (08:42→18:10)
[2020-03-20] MEDS: ROSUVASTATIN 10 MG TABLET 20 MG PO (08:42)
[2020-03-20] MEDS: clonazePAM (*CRX) 0.5 MG TABLET 1 MG PO (08:42)
[2020-03-20] MEDS: EZETIMIBE 10 MG TABLET PO (08:42)
[2020-03-20] MEDS: DULoxetine HCL 60 MG CAPSULE.DR PO (08:42)
[2020-03-20] MEDS: COLLAGENASE OINT 30 GM TUBE 1 APPLIC TOPICAL (08:46)
[2020-03-20 09:37] LABS: Glucose Point of Care 243 (65-105)
--- NOTE | 2020-03-20 10:07 | WPDANESPN ---
Anes - Prog Note Post-Op Date/Time: 03/20/20 10:07 Cardiovascular status: normal Respiratory status: normal Airway patency: baseline Mental status: baseline Post-Op hydration status: normal Vital Signs: Last Vital Signs Temp 36.8 C 03/20/20 06:00 Pulse 76 03/20/20 06:00 Resp 20 03/20/20 06:00 BP 130/70 03/20/20 06:00 Pulse Ox 97 03/20/20 06:00 Pain Score (VAS): 4 I/O: Intake & Output 03/19/20 03/20/20 03/20/20 23:59 07:59 15:59 Intake Total 900 50 Output Total 900 825 Balance 0 -775 Laboratory Tests 03/18/20 05:45 03/18/20 05:45 03/19/20 03/19/20 03/19/20 12:16 17:09 20:18 POC Capillary Glucose 269 H 138 H 102 03/20/20 09:35 POC Capillary Glucose 243 H Post-procedural complaints: none Patient Feedback: Patient satisfied with anesthetic care.
[2020-03-20] MEDS: INSULIN ASPART (*BKC) 100 UNITS/ML SUB-Q ×2 (10:27→13:17)
[2020-03-20] MEDS: INSULIN ASPART (*BKC) 100 UNITS/ML 10 UNITS SUB-Q ×3 (10:28→18:07)
[2020-03-20 12:58] LABS: Glucose Point of Care 228 (65-105)
--- NOTE | 2020-03-20 13:43 | PM.IMPN ---
Progress Note: A&P Assessment and Plan (1) Diabetic infection of right foot: Code(s): E11.628 - Type 2 diabetes mellitus with other skin complications; L08.9 - Local infection of the skin and subcutaneous tissue, unspecified Status: Acute Assessment and Plan: Pt is on IV zosyn pt has pseudomonas in the wound. DR Loyd is consulted podiatry MD. He advices IV abx and dressing changes. Unfortunately pts wcc not improving enough, pt can have debridement here and then to discharge with DR Gonzalez follow up. Vascular surgery states there is a occlusion. 03/20/20 13:43 65-year-old male with type 1 diabetes mellitus, peripheral vascular disease, chronic kidney disease, and chronic anemia who presented to the emergency department earlier today from Dr. Loyd'office for further evaluation of an infected diabetic foot wound. 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 Pt had debridement here and then to discharge with DR Gonzalez follow up. Pt will need vac therapy on dischrage pt needs vac theraphy placed prior to discharge. Hold discharge until this is complete. Patient wound culture is growing Pseudomonas aeruginosa pansensitive will continue Zosyn, will consult Dr. Quan further recommendation regarding IV antibiotic or switch to p.o. antibiotics before discharging patient. Today patient states feeling better pain is controlled denies any fever or chills is waiting for the wound VAC which will be placed tomorrow and after that patient can be discharged. (2) Type 1 diabetes mellitus with hyperglycemia: Code(s): E10.65 - Type 1 diabetes mellitus with hyperglycemia Status: Acute Assessment and Plan: Pt is on a insulin pump Not using it properly today. Change to high dose insulin 10 units and 10 units with meals. Pt can go back on his insulin pump on discharge. (3) Chronic kidney disease, stage 3 (moderate): Code(s): N18.3 - Chronic kidney disease, stage 3 (moderate) Status: Acute Assessment and Plan: Creat is 1.1, continue to monitor (4) Anemia in chronic kidney disease: Code(s): N18.9 - Chronic kidney disease, unspecified; D63.1 - Anemia in chronic kidney disease Status: Inactive Assessment and Plan: HB is 8, continue to monitor (5) Obstructive sleep apnea: Code(s): G47.33 - Obstructive sleep apnea (adult) (pediatric) Status: Inactive Assessment and Plan: CPAP IS AVAILABLE (6) Mixed hyperlipidemia: Code(s): E78.2 - Mixed hyperlipidemia Status: Acute Assessment and Plan: pt is on zetia Subjective Date/time seen: 03/20/20 13:43 Interval history: 65-year-old male with type 1 diabetes mellitus, peripheral vascular disease, chronic kidney disease, and chronic anemia who presented to the emergency department earlier today from Dr. Loyd'office for further evaluation of an infected diabetic foot wound. 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 Pt had debridement here and then to discharge with DR Gonzalez follow up. Pt will need vac therapy on dischrage pt needs vac theraphy placed prior to discharge. Hold discharge until this is complete. Patient wound culture is growing Pseudomonas aeruginosa pansensitive will continue Zosyn, will consult Dr. Quan further recommendation regarding IV antibiotic or switch to p.o. antibiotics before discharging patient. Today patient states feeling better pain is controlled denies any fever or chills is waiting for the wound VAC which will be placed tomorrow and after that patient can be discharged. Review of Systems Review of Systems: All
[2020-03-20 15:14] VITALS: PULSE 76; RESP 20; O2SAT 97
--- NOTE | 2020-03-20 16:19 | PC.NURSE ---
Santyl ointment applied to wound and vaseline gauze, 4x4s, gauze wrap and rio wrap applied to foot. Patient tolerated dressing change well.
[2020-03-20 17:51] LABS: Glucose Point of Care 175 (65-105)
--- NOTE | 2020-03-20 18:52 | PC.NURSE ---
Patient states he is not using his insulin pump here.
[2020-03-20 20:00] VITALS: BP 88/40; PULSE 77; RESP 16; TEMP 36.6; O2SAT 98
[2020-03-20] MEDS: SODIUM CHLORIDE 0.9% IV 500 ML 999 ML IV CONT ×2 (20:40→23:44)
[2020-03-20] MEDS: INSULIN GLARGINE (*BKC) 100 UNITS/ML 10 UNITS SUB-Q (20:49)
[2020-03-20 22:43] VITALS: BP 95/52
[2020-03-20 23:45] LABS: Glucose Point of Care 188 (65-105)
[2020-03-21 01:09] VITALS: BP 108/55
[2020-03-21 05:49] VITALS: BP 110/51; PULSE 74; RESP 16; TEMP 36.6; O2SAT 98
[2020-03-21 05:54] LABS: Estimated CRCL calculation 52 ml/min; Estimated Glomerular Filt Rate > 60
[2020-03-21] MEDS: clonazePAM (*CRX) 0.5 MG TABLET 1 MG PO (08:46)
[2020-03-21] MEDS: INSULIN ASPART (*BKC) 100 UNITS/ML 10 UNITS SUB-Q ×3 (08:46→17:08)
[2020-03-21] MEDS: EZETIMIBE 10 MG TABLET PO (08:47)
[2020-03-21] MEDS: ROSUVASTATIN 10 MG TABLET 20 MG PO (08:47)
[2020-03-21] MEDS: DULoxetine HCL 60 MG CAPSULE.DR PO (08:47)
[2020-03-21] MEDS: PREGABALIN (*CRX) 75 MG CAPSULE PO ×2 (08:49→17:07)
[2020-03-21 09:04] LABS: Glucose Point of Care 180 (65-105)
--- NOTE | 2020-03-21 11:43 | PC.NURSE ---
discussed with Rosangela in wound care, and the plan is to change patient over to wound vac later today. daily dressing not done in anticipation of wound vac being initiated.
[2020-03-21 13:58] LABS: Glucose Point of Care 182 (65-105)
[2020-03-21 14:00] VITALS: BP 104/56; PULSE 74; RESP 16; TEMP 36.2; O2SAT 100
--- NOTE | 2020-03-21 15:12 | PCCDE ---
DIABETES EDUCATION F/UP: pt has been insulin pump user for approx 25 years but currently off pump and being given basal bolus insulin regimen. Pt is hoping to be discharged today or tomorrow and resume his pump. Discussed not resuming basal rate until approx 22 hours past last dose of Lantus. Advised he has been getting Lantus at 9pm here. Pt v/u. Pt was scheduled for OP diabetes education f/up visit tomorrow but will cancel d/t pt admit and will also have vascular appt on 03/23. Pt sts he has been working on getting better at taking boluses before meal. Will call pt next week to reschedule; provided contact info and encouraged to call prn.
--- NOTE | 2020-03-21 16:53 | PM.IMPN ---
Progress Note: A&P Assessment and Plan (1) Diabetic infection of right foot: Code(s): E11.628 - Type 2 diabetes mellitus with other skin complications; L08.9 - Local infection of the skin and subcutaneous tissue, unspecified Status: Acute Assessment and Plan: Pt is on IV zosyn pt has pseudomonas in the wound. DR Loyd is consulted podiatry MD. He advices IV abx and dressing changes. Unfortunately pts wcc not improving enough, pt can have debridement here and then to discharge with DR Gonzalez follow up. Vascular surgery states there is a occlusion. 03/21/20 16:53 65-year-old male with type 1 diabetes mellitus, peripheral vascular disease, chronic kidney disease, and chronic anemia who presented to the emergency department earlier today from Dr. Loyd'office for further evaluation of an infected diabetic foot wound. 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 Pt had debridement here and then to discharge with DR Gonzalez follow up. Pt will need vac therapy on dischrage pt needs vac theraphy placed prior to discharge. Hold discharge until this is complete. Patient wound culture is growing Pseudomonas aeruginosa pansensitive will continue Zosyn, will consult Dr. Quan further recommendation regarding IV antibiotic or switch to p.o. antibiotics before discharging patient. Today patient states feeling better pain is controlled denies any fever or chills patient did have a wound VAC today, will wait for Dr. quan the see the patient tomorrow and further recommendation to follow (2) Type 1 diabetes mellitus with hyperglycemia: Code(s): E10.65 - Type 1 diabetes mellitus with hyperglycemia Status: Acute Assessment and Plan: Pt is on a insulin pump Not using it properly today. Change to high dose insulin 10 units and 10 units with meals. Pt can go back on his insulin pump on discharge. (3) Chronic kidney disease, stage 3 (moderate): Code(s): N18.3 - Chronic kidney disease, stage 3 (moderate) Status: Acute Assessment and Plan: Creat is 1.1, continue to monitor (4) Anemia in chronic kidney disease: Code(s): N18.9 - Chronic kidney disease, unspecified; D63.1 - Anemia in chronic kidney disease Status: Inactive Assessment and Plan: HB is 8, continue to monitor (5) Obstructive sleep apnea: Code(s): G47.33 - Obstructive sleep apnea (adult) (pediatric) Status: Inactive Assessment and Plan: CPAP IS AVAILABLE (6) Mixed hyperlipidemia: Code(s): E78.2 - Mixed hyperlipidemia Status: Acute Assessment and Plan: pt is on zetia Subjective Date/time seen: 03/21/20 16:53 Interval history: 65-year-old male with type 1 diabetes mellitus, peripheral vascular disease, chronic kidney disease, and chronic anemia who presented to the emergency department earlier today from Dr. Loyd'office for further evaluation of an infected diabetic foot wound. 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 Pt had debridement here and then to discharge with DR Gonzalez follow up. Pt will need vac therapy on dischrage pt needs vac theraphy placed prior to discharge. Hold discharge until this is complete. Patient wound culture is growing Pseudomonas aeruginosa pansensitive will continue Zosyn, will consult Dr. Quan further recommendation regarding IV antibiotic or switch to p.o. antibiotics before discharging patient. Today patient states feeling better pain is controlled denies any fever or chills patient did have a wound VAC today, will wait for Dr. quan the see the patient tomorrow and further recommendation t
[2020-03-21 18:30] LABS: Glucose Point of Care 164 (65-105)
--- NOTE | 2020-03-21 18:31 | WPDINFPN2 ---
Progress Note: A&P Assessment and Plan (1) Diabetic infection of right foot: Code(s): E11.628 - Type 2 diabetes mellitus with other skin complications; L08.9 - Local infection of the skin and subcutaneous tissue, unspecified Status: Acute Assessment and Plan: DFI after TMA, no OM, with ASPVD REC Levofloxacin oral through 03/29 Subjective Date/time seen: 03/21/20 18:31 Objective Data Vital Signs Vital Signs: Vital Signs - 24 hr 03/20/20 20:00 03/20/20 22:43 03/21/20 01:09 Temperature 36.6 C Pulse Rate 77 Respiratory Rate 16 Blood Pressure 88/40 L 95/52 L 108/55 L Pulse Oximetry 98 03/21/20 05:49 03/21/20 14:00 Temperature 36.6 C 36.2 C L Pulse Rate 74 74 Respiratory Rate 16 16 Blood Pressure 110/51 L 104/56 L Pulse Oximetry 98 100 Intake/Output Intake/Output: Intake & Output 03/18/20 03/19/20 03/20/20 03/21/20 23:59 23:59 23:59 23:59 Intake Total 590 1700 1470 2720 Output Total 1900 1650 1075 2100 Balance -1310 50 395 620 Meds/Results Medications: Active Medications Generic Name Dose Route Start Last Admin Trade Name Freq PRN Reason Stop Dose Admin Acetaminophen 650 mg 03/14/20 21:44 Acetaminophen 325 Mg Tablet PO Q6H PRN Mild Pain (1-3) or Fever Clonazepam 1 mg 03/15/20 09:00 03/21/20 08:46 Clonazepam (*Crx) 0.5 Mg Tablet PO 1 mg DAILY SPEEDY Administration Collagenase 1 applic 03/20/20 09:00 03/21/20 12:13 Collagenase Oint 30 Gm Tube TOPICAL Not Given QAM SPEEDY Dextrose 12.5 gm 03/16/20 19:16 Dextrose 50% 25 Gm/50 Ml Syringe IV PUSH PRN PRN Hypoglycemia Protocol Duloxetine HCl 60 mg 03/15/20 09:00 03/21/20 08:47 Duloxetine Hcl 60 Mg Capsule.Dr PO 60 mg DAILY SPEEDY Administration Ezetimibe 10 mg 03/15/20 09:00 03/21/20 08:47 Ezetimibe 10 Mg Tablet PO 10 mg DAILY SPEEDY Administration Ergocalciferol 50,000 unit 03/19/20 09:00 03/19/20 12:53 Ergocalciferol 50,000 Unit Capsule PO 50,000 unit WEEKLY SPEEDY Administration Glucagon 1 mg 03/16/20 19:16 Glucagon For Inj 1 Mg Vial IM PRN PRN Hypoglycemia Protocol Glucose 15 gm 03/16/20 19:16 Glucose Oral Gel 15 Gm Of Glucse In 37.5 Gm Tube PO PRN PRN Hypoglycemia Protocol Dextrose 1,000 mls @ 100 mls/hr 03/16/20 19:16 Dextrose 5% 1,000 Ml IVPB PRN PRN Hypoglycemia Protocol Insulin Aspart 4 - 8 units 03/17/20 08:00 03/21/20 17:08 Insulin Aspart (*Bkc) 100 Units/Ml SUB-Q Not Given TIDWM SPEEDY Protocol Insulin Aspart 10 units 03/17/20 12:00 03/21/20 17:08 Insulin Aspart (*Bkc) 100 Units/Ml SUB-Q 10 units TIDWM SPEEDY Administration Insulin Glargine 10 units 03/18/20 21:00 03/20/20 20:49 Insulin Glargine (*Bkc) 100 Units/Ml SUB-Q 10 units HS SPEEDY Administration Insulin Human Regular 0 each 03/15/20 09:00 03/21/20 08:48 Home Medication Insulin Pump - Novolog SUB-Q Not Given DAILY [facility] Levofloxacin 500 mg 03/22/20 09:00 Levofloxacin Tab 500 Mg Tablet PO DAILY [facility] Pregabalin 75 mg 03/15/20 09:00 03/21/20 17:07 Pregabalin (*Crx) 75 Mg Capsule PO 75 mg BID SPEEDY Administration Rosuvastatin Calcium 20 mg 03/15/20 09:00 03/21/20 08:47 Rosuvastatin 10 Mg Tablet PO 20 mg DAILY SPEEDY Administration Labs Labs: Laboratory Results - last 24 hr 03/20/20 03/21/20 03/21/20 20:49 05:15 08:37 Creatinine 1.10 Estim Creat Clear Calc 52 Estimated GFR > 60 POC Capillary Glucose 188 H 180 H 03/21/20 03/21/20 12:40 17:06 Creatinine Estim Creat Clear Calc Estimated GFR POC Capillary Glucose 182 H 164 H
--- NOTE | 2020-03-21 18:56 | PM.DS ---
DS: Admitting Diagnosis Admitting Diagnosis Admitting Diagnosis: Necrotic Ulceration Right Foot DS: Discharge Diagnosis Discharge Diagnosis (1) Diabetic infection of right foot: Code(s): E11.628 - Type 2 diabetes mellitus with other skin complications; L08.9 - Local infection of the skin and subcutaneous tissue, unspecified Status: Acute Assessment and Plan: Pt is on IV zosyn pt has pseudomonas in the wound. DR Loyd is consulted podiatry MD. He advices IV abx and dressing changes. Unfortunately pts wcc not improving enough, pt can have debridement here and then to discharge with DR Gonzalez follow up. Vascular surgery states there is a occlusion. 03/21/20 16:53 65-year-old male with type 1 diabetes mellitus, peripheral vascular disease, chronic kidney disease, and chronic anemia who presented to the emergency department earlier today from Dr. Loyd'office for further evaluation of an infected diabetic foot wound. 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 Pt had debridement here and then to discharge with DR Gonzalez follow up. Pt will need vac therapy on dischrage pt needs vac theraphy placed prior to discharge. Hold discharge until this is complete. Patient wound culture is growing Pseudomonas aeruginosa pansensitive will continue Zosyn, will consult Dr. Fuentes further recommendation regarding IV antibiotic or switch to p.o. antibiotics before discharging patient. Today patient states feeling better pain is controlled denies any fever or chills patient did have a wound VAC today, will wait for Dr. fuentes the see the patient tomorrow and further recommendation to follow (2) Type 1 diabetes mellitus with hyperglycemia: Code(s): E10.65 - Type 1 diabetes mellitus with hyperglycemia Status: Acute Assessment and Plan: Pt is on a insulin pump Not using it properly today. Change to high dose insulin 10 units and 10 units with meals. Pt can go back on his insulin pump on discharge. (3) Chronic kidney disease, stage 3 (moderate): Code(s): N18.3 - Chronic kidney disease, stage 3 (moderate) Status: Acute Assessment and Plan: Creat is 1.1, continue to monitor (4) Anemia in chronic kidney disease: Code(s): N18.9 - Chronic kidney disease, unspecified; D63.1 - Anemia in chronic kidney disease Status: Inactive Assessment and Plan: HB is 8, continue to monitor (5) Obstructive sleep apnea: Code(s): G47.33 - Obstructive sleep apnea (adult) (pediatric) Status: Inactive Assessment and Plan: CPAP IS AVAILABLE (6) Mixed hyperlipidemia: Code(s): E78.2 - Mixed hyperlipidemia Status: Acute Assessment and Plan: pt is on zetia DS: Summary Hospital Course Reason for hospitalization: Chief complaint: Infected diabetic foot wound Narrative: Guerrero Yang Jr. is a 65-year-old male with type 1 diabetes mellitus, peripheral vascular disease, chronic kidney disease, and chronic anemia who presented to the emergency department earlier today from Dr. Loyd'office for further evaluation of an infected diabetic foot wound. He underwent transmetatarsal amputation of the right foot in June 2019 and more recently he has developed a painful ulcer along the amputation site on the right lateral foot. He was seen in the office by Dr. Loyd this morning and apparently had minor debridement of the area but was sent in for IV antibiotics. With further questioning he does mention over the past couple of days having run a low-grade fever up to 100? with associated decrease in appetite and hyperglycemia. He reports 10/10 pain at the area of the ulcer, which is unusual for him as he suffers from severe peripheral neuropathy. No known history of multidrug resistant organisms. He denie
--- NOTE | 2020-03-21 20:24 | CONS_ITS ---
DATE OF CONSULTATION: 03/21/2020 REASON FOR CONSULTATION: Soft tissue infection, right foot. HISTORY OF PRESENT ILLNESS: The patient is a 65-year-old male known to me from the past. He has known type 1 diabetes mellitus with peripheral vascular disease and sees Dr. Gonzalez as well. He has had multiple interventions and in June underwent a transmetatarsal amputation by Dr. Loyd. Pathology revealed acute osteomyelitis with clear bony margins. Also findings of soft tissue infection without clear margins. Nonetheless, his incision healed up quite well, but he stubbed his foot accidentally and then developed discoloration of the lateral aspect of the distal right foot, which then developed into an ulcer with drainage and temperature up to 37.8. He then was admitted. He has been on piperacillin tazobactam and consultation requested. He has had no further fever, chills, or sweats. He did undergo soft tissue debridement by Dr. Loyd on March 18, thus he is postop day #3. Findings included malodorous drainage, necrotic soft tissue. The head of the 5th metatarsal was also necrotic and excised to healthy-appearing bone. A wound VAC is now in place. Knows of no other trauma. No other recent antibiotics and no immunosuppressants. PRESENT MEDICATIONS: Home medication list reviewed in full includes no cardiovascular medications in particular. HABITS: No tobacco. No alcohol. ALLERGIES: NONE KNOWN. PAST MEDICAL HISTORY: In addition to the above, peripheral neuropathy, chronic renal insufficiency stage III, anxiety and depression, nephrolithiasis, hyperlipidemia, FARNAZ, and vitamin D deficiency. REVIEW OF SYSTEMS: Hyperglycemia, loss of sensation of hands and feet. Loss of musculature in the hands. Gait disturbance with his TMA. 14-point review otherwise negative. FAMILY HISTORY: Cancer, [place], and stroke. SOCIAL HISTORY: He is , lives locally and disabled. He customarily uses a cane to ambulate at home. Also has a special shoe for his right foot. PHYSICAL EXAMINATION: GENERAL: This is a middle-aged male, who appears actual age. No respiratory distress. SKIN: Decreased turgor, pale, warm and dry. No rashes. NODES: No cervical adenopathy. EENT: Oropharynx and oral mucosa normal. Pupils equal and round. Conjunctivae are normal. NECK: No masses, thyromegaly, meningismus. LUNGS: Clear to auscultation and percussion. CARDIAC: Regular rate and rhythm. No murmur, gallop, or rub. Unable to palpate dorsalis pedis pulses. ABDOMEN: Nontender, soft. No bruits. No organomegaly and soft. EXTREMITIES: He has marked muscle wasting in the intrinsic muscles of the hands. He also has some atrophy in the distal legs. He has a wound VAC applied to the right distal lateral foot without surrounding erythema tenderness of the sinus tract. Right foot other than loss of musculature is normal. LABORATORY DATA: No microbiology sent from his [facility] in June. Wound cultures here have grown Pseudomonas aeruginosa, relatively susceptible. Blood cultures final, no growth. Another wound culture was obtained in the operating room on the showed rare epithelial cells, rare white cells and rare gram-negative rods. Culture apparently was not handled correctly and so we may not have any results. Other labs include white count 12.3, down from 13.7, hemoglobin 8.6 with stable, platelets of 549. Differential not redone, but earlier showed no abnormalities. He has mild hyponatremia. BUN is 30, creatinine 1.1, down from 1.6. Accu-Cheks widely variable 102 up to 480. Albumin 3.2. His CRP is 12.9. RADIOLOGY: MRI of the foot shows polyarticular arthritis. X-rays of the foot obtained on arrival. No acute abnormalities. ASSESSMENT: 1. Soft tissue infection of t
== END 2020-03-21 20:00 | disposition home health service (06) | DRG 988 ==
LOC: ANHED 12:17 → ANH3MEDSUR 03-15 04:57
PROVIDERS: Physician Assistant; Podiatrist Foot & Ankle Surgery; Admitting Provider Family Medicine; Emergency Provider Emergency Medicine; PCP Family Medicine; Visit Provider Family Medicine
DX: E10.52 Type 1 diabetes mellitus with diabetic peripheral angiopathy with gangrene (principal); R64 Cachexia; I96 Gangrene, not elsewhere classified; Z68.1 Body mass index [BMI] 19.9 or less, adult; M86.171 Other acute osteomyelitis, right ankle and foot; E87.1 Hypo-osmolality and hyponatremia; B96.5 Pseudomonas (aeruginosa) (mallei) (pseudomallei) as the cause of diseases classified elsewhere; E10.69 Type 1 diabetes mellitus with other specified complication; E10.621 Type 1 diabetes mellitus with foot ulcer; L97.514 Non-pressure chronic ulcer of other part of right foot with necrosis of bone; E10.42 Type 1 diabetes mellitus with diabetic polyneuropathy; E10.22 Type 1 diabetes mellitus with diabetic chronic kidney disease; N18.30 Chronic kidney disease, stage 3 unspecified; E10.65 Type 1 diabetes mellitus with hyperglycemia; D63.1 Anemia in chronic kidney disease; E10.51 Type 1 diabetes mellitus with diabetic peripheral angiopathy without gangrene; E10.21 Type 1 diabetes mellitus with diabetic nephropathy; E10.319 Type 1 diabetes mellitus with unspecified diabetic retinopathy without macular edema; G47.33 Obstructive sleep apnea (adult) (pediatric); E78.2 Mixed hyperlipidemia; E55.9 Vitamin D deficiency, unspecified; F41.8 Other specified anxiety disorders; Z89.021 Acquired absence of right finger(s); Z87.442 Personal history of urinary calculi; Z95.820 Peripheral vascular angioplasty status with implants and grafts
CPT/HCPCS: 36415; 73630; 80048; 80053; 80202; 82565; 83605; 83735; 85025; 85027; 85652; 86140; 87040; 87070; 87075; 87077; 87186; 87205; 88305; 88311; 96365; 96367; 96375; 99283; 99285; A9270; J0743; J1815; J2270; J2543; J2704; J3370; J7030; J7040; J7120

== ENCOUNTER 2020-06-27 21:21 | Observation (INO) | payer OTHER, SELFPAY ==
--- NOTE | ~2020-06-27 | XR_ITS ---
EXAMINATION: XR chest 1V portable INDICATION: Altered mental status, lethargy TECHNIQUE: Portable AP chest at 2004 hours COMPARISON: 06/22/2014 FINDINGS: The lungs are free of acute opacities. There is no pleural effusion or pneumothorax. The ca rdiomediastinal silhouette is normal. IMPRESSION: 1. No acute cardiopulmonary abnormality. Reviewed, dictated and finalized at location A. LY DENTIST
--- NOTE | ~2020-06-27 | CT_ITS ---
EXAMINATION: CT brain wo con INDICATION: Confusion COMPARISON: 09/04/2013 TECHNIQUE: Standard unenhanced head CT. The dose-length product (DLP) was 605.33 mGy-cm. The mA was a djusted according to patient size. Iterative reconstruction technique was employed. FINDINGS: There is no intracranial hemorrhage, acute infarction, or abnormal mass lesion. The ventric les are normal. There is no abnormal mass effect or midline shift. The ozuna-white matter differentiat ion is normal. The basal cisterns are patent. Changes in the globes are likely from ocular lens surge ry. The paranasal sinuses, mastoids and calvarium are normal. IMPRESSION: 1. No acute intracranial abnormality. Reviewed, dictated and finalized at location A. ET EXAMINER
[2020-06-27 21:22] VITALS: BP 135/87; PULSE 69; RESP 19; TEMP 36.7; O2SAT 100
[2020-06-27 21:32] LABS: Glucose Point of Care 155 (65-105)
--- NOTE | 2020-06-27 22:06 | ED.GENADULT ---
HPI - General Adult General Chief complaint: Recheck/Abnormal Lab/Rx Stated complaint: LOW BS Time Seen by Provider: 06/27/20 21:56 Source: patient Mode of arrival: ambulatory Limitations: no limitations History of Present Illness HPI narrative: Patient is a 65-year-old male brought in by EMS due to altered mental status. According to family member patient was flailing around confused and when he checked his blood sugar it was 16 so they called 911. Father states that they gave him glucose prior to EMS arrival. On arrival patient is alert awake and oriented x4 and has no complaints. Patient denies any headache, dizziness, speech or visual disturbance, chest pain, shortness of breath, abdominal pain, nausea, vomiting, diarrhea, fever or chills. Patient had a recent below the knee amputation approximately 2 weeks ago at another hospital. Related Data Home Medications Medication Instructions Recorded Confirmed aspirin [Aspirin Childrens] 81 mg PO DAILY 07/20/19 03/14/20 ezetimibe 10 mg tablet 10 mg PO DAILY 11/24/19 03/14/20 rosuvastatin 20 mg tablet 20 mg PO DAILY 02/21/20 03/14/20 ferrous sulfate 325 mg (65 mg 325 mg PO DAILY 06/27/20 iron) tablet oxycodone-acetaminophen 7.5 mg-325 1 tablet PO BID PRN tablet 06/27/20 mg tablet ramipril 2.5 mg capsule 2.5 mg PO DAILY 06/27/20 Allergies Allergy/AdvReac Type Severity Reaction Status Date / Time No Known Allergies Allergy Unknown Verified 03/18/20 14:14 Review of Systems Review of Systems: All systems reviewed & are unremarkable except as noted in HPI and below Constitutional: Constitutional: Denies body ache(s), Denies chills, Denies excessive sweating, Denies fatigue, Denies fever(s), Denies headache(s), Denies lethargy, Denies malaise, Denies weakness and Denies weight loss Eyes: Eyes: Denies blurry vision, Denies change in vision and Denies loss of vision ENT: Denies dizziness, Denies ear discharge, Denies headache(s), Denies lip swelling, Denies epistaxis, Denies nasal congestion, Denies neck pain, Denies throat swelling and Denies tongue swelling Cardiovascular: Cardiovascular: Denies chest pain, Denies chest pain at rest, Denies chest pain with activity, Denies diaphoresis, Denies rapid heart rate, Denies edema, Denies irregular heart rhythm, Denies lightheadedness, Denies palpitations, Denies dyspnea and Denies dyspnea on exertion Respiratory: Respiratory: Denies chest congestion, Denies cough, Denies hemoptysis, Denies dyspnea and Denies dyspnea on exertion Gastrointestinal: Gastrointestinal: Denies abdominal pain, Denies melena, Denies hematochezia, Denies diarrhea, Denies nausea, Denies vomiting and Denies hematemesis Musculoskeletal: Musculoskeletal: Denies abnormal gait, Denies deformity, Denies joint swelling, Denies limited range of motion, Denies neck pain and Denies numbness Neurologic: Denies Abnormal speech present, Denies abnormal gait, Denies dizziness, Denies headache(s), Denies focal weakness, Denies loss of vision, Denies numbness, Denies Other visual disturbances, Denies Sensory deficit (Neuro) and Denies weakness Psychiatric: Psychiatric: Denies confusion, Denies depression, Denies auditory hallucinations, Denies homicidal ideation and Denies suicidal ideation Endocrine: Endocrine: Denies cold intolerance, Denies excessive sweating, Denies fatigue, Denies heat intolerance and Denies palpitations Hematologic/Lymphatic: Hematologic/Lymphatic: Denies easy bleeding and Denies easy bruising Allergic/Immunologic: Allergic/Immunologic: Denies lip swelling, Denies throat swelling and Denies tongue swelling PMFSH Past Medical History Medical History Ambulatory dysfunction 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 Anemia in chronic kidney disease Anxiety Chronic kidney disease, stage 3 (moderate) Baseline creatinine is between 1.3 and 1.40. Closed patellar sl
[2020-06-27 22:37] LABS: Basophils Absolute Auto 0.1 K/mm3 (0.0-0.1); Basophils Percent Auto 0.7 % (0.2-1.2); Eosinophils Absolute Auto 0.2 K/mm3 (0-0.3); Eosinophils Percent Auto 2.1 % (0-4.4); Hematocrit 31.7 % (42.0-52.0); Hemoglobin 9.4 g/dL (14.0-18.0); Immature Granulocyte Absolute 0.07 K/mm3 (0.00-0.031); Immature Granulocyte Percent A 0.8 % (0-0.5); Lymphocytes Percent Auto 22.5 % (18.3-44.2); Mean Corpuscular HGB Conc 29.7 g/dl (32-36); Mean Corpuscular Hemoglobin 27.4 pg (26-34); Mean Corpuscular Volume 92.4 fl (80-100); Monocytes Absolute Auto 0.6 K/mm3 (0.1-0.6); Monocytes Percent Auto 7.3 % (2.6-8.5); Neutrophils Absolute Auto 5.6 K/mm3 (1.3-6.7); Neutrophils Percent Auto 66.6 % (45.5-73.1); Platelet Count Result 499 k/mm3 (150-375); Red Blood Count 3.43 M/mm3 (4.6-6.20); Red Cell Distribution Width 16.4 % (11.5-14.5); White Blood Count 8.5 K/mm3 (4.5-10.0)
[2020-06-27 22:42] VITALS: BP 142/90; PULSE 71; RESP 12; O2SAT 100
[2020-06-27 22:47] LABS: Prothrombin Time 13.7 Seconds (11.1-14.7)
[2020-06-27 22:48] LABS: Lactic Acid Reflex 1.2 mmol/L (0.7-2.1)
[2020-06-27 22:51] LABS: Alanine Aminotransferase 23 U/L (4-50); Albumin Level 3.9 g/dL (3.5-5.1); Alkaline Phosphatase 127 U/L (38-126); Anion Gap 6 mmol/L (8-16); Aspartate Amino Transferase 37 U/L (17-59); Bilirubin,Total 0.3 mg/dL (0.2-1.3); Blood Urea Nitrogen 29 mg/dL (9-20); Calcium 9.2 mg/dL (8.4-10.2); Carbon Dioxide 31 mmol/L (22-30); Chloride 102 mmol/L (98-107); Estimated Glomerular Filt Rate > 60; Glucose 139 mg/dL (75-110); Potassium 4.5 mmol/L (3.4-5.0); Sodium 139 mmol/L (137-145)
[2020-06-27 22:55] LABS: Platelet Estimate Adequate (Adequate)
[2020-06-27 22:56] LABS: Hypochromasia 1+ (NORMAL); Stomatocytes 1+ (NORMAL)
[2020-06-27 22:58] LABS: Add Urine Microscopic? YES; Appearance Urine Clear (Clear); Bilirubin Urine Negative (Negative); Blood Urine Negative (Negative); Color Urine Yellow (Yellow); Glucose Urine UA 2+ mg/dL (Negative); Ketones Urine Negative (Negative); Leukocyte Esterase Ur Negative LEU/UL (Negative); Mucus Urine Rare /lpf; Nitrate Urine Negative (Negative); Protein Urine 1+ mg/dL (Negative); Specific Grav Ur 1.017 (1.001-1.035); Squamous Epithelial Cell Urine Rare /hpf (Few); Urobilinogen Urine Negative mg/dL (<2.0); WBC Urine 0-3 /hpf
[2020-06-27 23:01] LABS: Troponin I < 0.012 ng/mL (0.000-0.034)
[2020-06-27 23:19] LABS: Glucose Point of Care 110 (65-105)
[2020-06-27 23:38] LABS: CRP < 0.5 mg/dL (<1.0)
[2020-06-27 23:58] LABS: Glucose Point of Care 91 (65-105)
[2020-06-28] VITALS (11 sets, daily range): BP systolic 127–174; BP diastolic 65–81; PULSE 73–98; RESP 13–18; TEMP 36.4–37.1; O2SAT 97–100; BMI 22.4
[2020-06-28 01:00] LABS: Glucose Point of Care 119 (65-105)
--- NOTE | 2020-06-28 01:08 | ECG_ITS ---
Measurements Intervals [place] Rate: 86 P: 64 NM: 132 QRS: 8 QRSD: 91 T: 42 QT: 386 QTc: 463 Interpretive Statements SINUS RHYTHM BASELINE WANDER- I, III, AVL, V2 NORMAL ECG Electronically Signed On 06-28-2020 6:51:17 WATER/WASTEWATER ENGINEER by Aj Verdugo D.O.
--- NOTE | 2020-06-28 02:00 | ADMGEN ---
This patient, Guerrero Yang Jr., was admitted to IMU Room 206-01. Patient/family oriented to hospital policies and general routines including ID bracelet, bed and alarms, visiting hours, pain management, procedures, bathroom and other care routines, personal items, smoking policy, room service/diet, and visiting hours. Information on how to activate the Rapid Response Team has been discussed. Patient/Family are encouraged to report perceived risks to care and to ask questions if they do not understand what they are told or what they should do.
[2020-06-28 02:25] LABS: Glucose Point of Care 201 (65-105)
--- NOTE | 2020-06-28 03:11 | PM.IMHP ---
H&P: HPI History of Present Illness Date/Time: 06/28/20 03:11 Chief Complaint: Acute Altered mental status tonight at home+ Narrative: This is a pleasant 65 year old Diabetic male with known recent RLE BKA approximately 2 weeks ago who presented to the hospital with a complaint of acute altered mental status this evening. Apparently the patient lasts remember sitting in a recliner and his family witnessed that he became confused and was flailing around. They checked his blood sugar and found it to be 16 mg/dl on accucheck and gave him glucose. EMS was called and on their arrival the patient was already back to his baseline. The patient was brought to the hospital for evaluation. He denies any headache, blurry vision, double vision, slurred speech, facial droop, tongue biting, seizure like activity, shortness of breath, fevers, chills, chest pain, cough, palpitations, abdominal pain, nausea, vomiting, dysuria, hematuria, diarrhea, rectal bleeding, numbness, tingling, or focal weakness. He believes that he ate enough food yesterday and does not believe that he accidently gave himself too much insulin. CT brain was obtained and was unremarkable. We were asked to admit the patient for observation as his blood sugar appeared to start to go down in the ER again tonight. No other complaints tonight. 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 Anemia in chronic kidney disease Anxiety Chronic kidney disease, stage 3 (moderate) Baseline creatinine is between 1.3 and 1.40. Closed patellar sleeve fracture of left knee Depression Insomnia Kidney stones Major depressive disorder, recurrent, moderate Mixed hyperlipidemia Obstructive sleep apnea Peripheral vascular disease Type 1 diabetes mellitus Complicated by diabetic retinopathy, nephropathy, and neuropathy. Most recent hemoglobin A1c was 8.9%. Vitamin D insufficiency Surgical History Surgical History History of transmetatarsal amputation of right foot (~06/2019) Peripheral vascular angioplasty status with implants and grafts Family History Family History Father Acute myocardial infarction CABG Mother Hypothyroid Breast cancer Mother Family history of cataracts Father Malignant neoplasm of prostate Cerebrovascular accident Sibling Patient's brother is Other Family history of arthritis Family history of cardiovascular disease Family history of malignant neoplasm Social History Social History Social History: Surrogate decision maker: Guerrero Yang Sr. (father). Code status: Full code. Smoking status: Never smoker Second hand tobacco smoke exposure: No Alcohol intake: never Substance use: never Substance use type: does not use Additional living arrangements comments: . Lives in his own home in [place]. Ambulates with a cane. Additional occupation/education comments: Disabled. Gender identity (if verbalized by the patient): Male Spiritual care concerns: No Agree to blood products: Yes Meds Home Medications and Allergies Home Medications Medication Instructions Recorded Confirmed Type blood-glucose meter,continuous #1 each 03/16/19 06/28/20 Rx blood-glucose sensor #3 each 03/16/19 06/28/20 Rx blood-glucose transmitter #1 each 03/16/19 06/28/20 Rx cholecalciferol (vitamin D3) 1,250 1,250 mcg PO WEEKLY #14 cap 11/03/19 06/28/20 Rx mcg (50,000 unit) capsule ezetimibe 10 mg tablet 10 mg PO DAILY 11/24/19 06/28/20 History insulin aspart U-100 100 unit/mL See Rx Instructions .
[2020-06-28] MEDS: ACETAMINOPHEN 325 MG TABLET 650 MG PO (03:38)
[2020-06-28 05:10] LABS: Glucose Point of Care 330 (65-105)
[2020-06-28 08:54] LABS: Glucose Point of Care 439 (65-105)
[2020-06-28] MEDS: FERROUS SULFATE 324 MG TABLET PO (10:19)
[2020-06-28] MEDS: EZETIMIBE 10 MG TABLET PO (10:20)
[2020-06-28] MEDS: ROSUVASTATIN 10 MG TABLET 20 MG PO (10:20)
[2020-06-28] MEDS: DULoxetine HCL 60 MG CAPSULE.DR PO (10:20)
--- NOTE | 2020-06-28 11:28 | PC.NURSE ---
Notified Kristy Reyez PA-C of patient's blood glucose of 462. New order to just give the max dose on the sliding scale of 5 units.
[2020-06-28 11:52] LABS: Hemoglobin A1C 8.1 % (<5.7)
[2020-06-28 12:06] LABS: Glucose Point of Care 462 (65-105)
--- NOTE | 2020-06-28 12:09 | PC.NURSE ---
Spoke with Kristy Rizvi PA-C regarding patient receiving tray and previously told to not give insulin until Kristy spoke with cold storage supervisor. New order to give 4 units Novolog and restart insulin pump.
[2020-06-28] MEDS: INSULIN ASPART (*BKC) 100 UNITS/ML SUB-Q (12:14)
--- NOTE | 2020-06-28 14:19 | PM.DS ---
DS: Admitting Diagnosis Admitting Diagnosis Admitting Diagnosis: AMS DS: Discharge Diagnosis Discharge Diagnosis (1) Altered mental status: Qualifiers: Altered mental status type: transient alteration of awareness Qualified Code(s): R40.4 - Transient alteration of awareness Code(s): R41.82 - Altered mental status, unspecified Status: Acute (2) Hypoglycemia: Code(s): E16.2 - Hypoglycemia, unspecified Status: Acute Assessment and Plan: (3) Below-knee amputation of right lower extremity: Code(s): S88.111A - Complete traumatic amputation at level between knee and ankle, right lower leg, initial encounter Status: Acute (4) 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 He was given glucose by his family and EMS was called with improvement of his symptoms on arrival. Initial vitals showed he was afebrile, normal heart rate, respiratory rate, blood pressure 135/87, pulse ox 100% on room air. Initial labs showed normocytic anemia with a hemoglobin 9.4, hematocrit 31%. Normal coag panel. Creatinine 1.2, BUN 29. Hemoglobin A1c is 8.1%. Lactic acid was normal 1.2. Troponin was normal. CRP was normal. Chest x-ray showed no acute cardiopulmonary abnormality. CT brain showed no acute intracranial abnormality. Was admitted to the hospital under observation status for hypoglycemia. His insulin pump was discontinued initially and cause his glucose to elevate. I spent time talking to the nurses educator about the patient and she talk to his accounting auditor. His settings of his glucometer were off. His accounting auditor and nurses educator told us to switch his settings, give him 4 units of Novolog. The patient was feeling much better. Not having any issues at this time. Instructed to follow up with Gas Appliance Repairer in 1 week and PCP. The patient understands and agrees with the plan. All questions answered. Called the patient 06/29/20 at 0830 for a follow up since we do not have any other recorded glucoses in the computer except for the last one at 462. The patient is feeling well. He was asleep with out any signs of nausea, vomiting, excessive thirst, abdominal pain, weakness or any other issues at this time. He states his glucoses after returning home had been improving and were 328, then 275. He has to order more supplies for his continuous glucose monitor today, make an appointment with his PCP and Gas Appliance Repairer for follow up after discharge from the hospital. Told the patient to call if he has any other issues or concerns. Come back to the ER if his glucose remains elevated or develops any concerning symptoms. He understands and agrees with the plan. All questions answered. Hospital Course: See above Status at Discharge Cognitive/behavioral status at discharge: Stable, improved. Time Spent with Patient Time attestation: Total time spent providing and/or coordinating discharge services: 42 Time spent: Greater than 30 minutes Exam Narrative: Exam Narrative: General: 65-year-old man sitting up in bed with family at bedside drinking coffee. Appears comfortable. In no acute distress. Skin: No jaundice or cyanosis. Good skin turgor. Neck: Full range of motion. Supple. Respiratory: Lungs are clear to au
--- NOTE | 2020-07-08 08:04 | PC.NURSE ---
Blood cx are nml
== END 2020-06-28 14:55 | disposition home or self-care (01) ==
LOC: ANHED 06-28 00:55 → ANHIMU 06-28 01:48
PROVIDERS: Emergency Medicine Emergency Medical Services; Physician Assistant; Admitting Provider Family Medicine; Emergency Provider Emergency Medicine; PCP Family Medicine; Visit Provider Family Medicine
DX: E10.649 Type 1 diabetes mellitus with hypoglycemia without coma (principal); R41.82 Altered mental status, unspecified; E10.42 Type 1 diabetes mellitus with diabetic polyneuropathy; E10.22 Type 1 diabetes mellitus with diabetic chronic kidney disease; N18.30 Chronic kidney disease, stage 3 unspecified; E78.2 Mixed hyperlipidemia; Z89.511 Acquired absence of right leg below knee; Z96.41 Presence of insulin pump (external) (internal)
CPT/HCPCS: 36415; 70450; 71045; 80053; 81001; 82948; 83036; 83605; 84484; 85025; 85610; 85730; 86140; 87040; 93005; 99285; A9270; G0378; J1815

== ENCOUNTER 2020-11-14 10:00 | Outpatient (RCR) | payer OTHER, SELFPAY ==
--- NOTE | 2020-10-11 13:41 | PTOPEVAL ---
PHYSICAL THERAPY EVALUATION AND PLAN OF CARE Thank you for referring Guerrero Bowlingdulce Corbin to [facility] The patient is scheduled to be seen for therapy? 2x/week for 4 weeks. Please review, sign, date and return this plan of care RYAN. I agree with and certify that the following plan of care is medically necessary. Referring Physician Date Attending Provider: Jaspreet Loyd JR, MD Evaluation Outpatient Past Medical History Neurological History Hx Neurological Disorders No Significant History Cardiovascular History Hx Hypercholesterolemia Yes Hx Peripheral Vascular Disease Yes Respiratory History Hx Pneumonia Yes Hx Sleep Apnea Yes Gastrointestinal History Hx Gastrointestinal Disorders No Significant History Genitourinary History Hx Kidney Stones Yes Hx Renal Disease Yes Musculoskeletal History Hx Amputation Yes: toes on right foot and tip of finger on left hand, right bka Hx Arthritis Yes Hx Crutches or Walker Use Yes: uses a cane Query Text:If Yes, Enter Crutches, Walker, or Both in the Comment Hx Fractures Yes Hx Orthopedic Surgery Yes: on right foot Hx Osteomyelitis Yes Hematological History Hx Blood Transfusions Yes Endocrine History Hx Diabetes Yes HEENT History Hx Cataracts Yes Hx Epistaxis Yes Hx Sinus Problems Yes Hx Dental Problems Yes Hx Eye Surgery Yes: diabetic retinopathy Integumentary History Hx Skin Disorders No Significant History Reproductive History Hx Reproductive Disorders No Significant History Psychosocial History Hx Anxiety Yes Hx Depression Yes Pain History Has Past Pain Affected Your Daily Life Yes Anesthesia History Hx Anesthesia Reactions No Significant History Other History Hx Implanted Device Yes: INSULIN PUMP Hx Other Medical Conditions Yes: STAPH INFECTION TO FEET WITH IV ANTIBX 2003, DROP FOOT SYNDROME,WEARS BRACE Diagnosis right transtibial amputation Onset 05/2020 Subjective Information Guerrero is here for gait Query Text:As Reported By Patient/ training s/p right transtibial Family amputation. He tries to use the walker as much as possible , but uses a wheelchair at home when he needs to carry something. He also sometimes goes on hands and knees to be
--- NOTE | 2020-11-14 10:25 | PTOPEVAL ---
PHYSICAL THERAPY DISCHARGE NOTE Thank you for referring Guerrero Carrillo Trey Corbin to [facility].? Please review, sign, date and return this plan of care RYAN. I agree with and certify that the following plan of care is medically necessary. Referring Physician Date Attending Provider: Jaspreet Loyd JR, MD Discharge Diagnosis right transtibial amputation Onset 05/2020 Subjective Information Kurt reports that he is much Query Text:As Reported By Patient/ more active at home and Family starting to get around the house more. He is independent in moving about the home including stair climbing. He is even thinking about going out and washing his van. Pain Score Pain Score 0: Self Report Balance Assessment Fairchild Balance Assessment Sitting to Standing Independent w/Hands Unsupported Stance Ability Safely- 2 minutes Sitting Unsupported, Feet on Floor Safely- 2 minutes Standing to Sitting Assist, Control w/Hands Transfer Ability Safely, Hand Use Unsupported Stance- Eyes Closed 3 seconds Unsupported Stance- Feet Together Supervision to maintain Reaching Forward while Standing Supervision Needed drying room supervisor Object From Floor Requires Supervision Look Behind Shoulder - Standing Turns Sideways Only Turning 360 Degrees Supervision/Verbal Cues Unsupported Stance, Alternating Feet on 2 Steps w/Minimum Assist Stair Unsupported Tandem Stance Assist to Step-15 seconds Unilateral Leg Stance Unable,assist to not fall FAIRCHILD Balance Evaluation Total Score (/56 29 points) Time Up Go (TUG) Timed Up and Go Test (TUG) (Seconds) 13 Assistive Devices Cane, Straight 5 Time Sit to Stand Time in Seconds 12.61 5 Time Sit to Stand Comments wth use of arm rests Query Text:Normative Data: If Greater Than 15 Seconds, 74% Increase Risk for Recurrent Falls Gait Assessment 2 Minute Walk Total Distance Walked (feet) 386 2 Minute Walk Gait Speed Score (feet/ 3.21 second) 2 Minute Walk Test Comments with striaght cane 1month ago = .85ft/second with walker Stair Climbing Assessment Stair Climbing Assessment Stair Climbing Assistive Devices Cane,Railings Number of Steps Climbed (Steps) 4 Number of Repetitions (Repetitions) 2 Technique Single Steps Stair Climbing Direction Both Up and Down Stair Climbing Ability Independent Rehab Teaching Rehab Teaching Teaching Topic Rehab Teaching Topic Components Orthosis/Prosthesis,Ski
== END 2020-12-26 11:17 | disposition home or self-care (01) ==
LOC: ANHPT 10:00
PROVIDERS: PCP Family Medicine; Visit Provider Podiatrist Foot & Ankle Surgery
DX: Z47.81 Encounter for orthopedic aftercare following surgical amputation (principal); Z89.511 Acquired absence of right leg below knee
CPT/HCPCS: 97110; 97116; 97162; 97530

== ENCOUNTER 2021-03-12 18:05 | Observation (INO) | payer OTHER, SELFPAY ==
--- NOTE | ~2021-03-12 | CT_ITS ---
EXAMINATION: CTA chest PE protocol DATE: 03/12/2021 20:12 INDICATION: Syncope. TECHNIQUE: Computed tomography angiography (CTA) of the chest was performed with 100 mL Omnipaque-350 intravenous contrast timed to evaluate the pulmonary arteries. Coronal maximum intensity projection 3D-reconstructions were created by the technologist. Automated exposure control and iterative reconst ruction technique were employed. The dose-length product was 311.57 mGy-cm. COMPARISON: Chest single view 03/12/2021 FINDINGS: The lungs demonstrate mild atelectasis. No pleural effusion. The heart size is normal. Ther e are coronary artery calcifications. No pericardial effusion. There is no pulmonary embolus. There i s wall thickening of the mid and distal esophagus. There is mild thoracic spondylosis. IMPRESSION: 1. No pulmonary embolus. 2. Wall thickening of the mid and distal esophagus, likely esophagitis. Reviewed, dictated and finalized at location A. RWATER TRAPPER
--- NOTE | ~2021-03-12 | CT_ITS ---
EXAMINATION: CT brain wo con DATE: 03/12/2021 18:40 INDICATION: Unresponsive. TECHNIQUE: Computed tomography (CT) of the head was performed without intravenous contrast. The mA wa s adjusted according to patient size. Iterative reconstruction technique was employed. The dose-lengt h product was 681.00 mGy-cm. COMPARISON: Head CT 06/27/2020 FINDINGS: There is no intracranial hemorrhage, acute infarction, or abnormal intracranial mass lesion . The ventricles are normal in size. There are likely changes of ocular lens replacement surgeries. T here is mild mucosal thickening in the paranasal sinuses. There is a trace right mastoid effusion. IMPRESSION: 1. Normal brain. Reviewed, dictated and finalized at location A. TAL SLICER IMPRESSION: 1. Normal brain.
--- NOTE | ~2021-03-12 | US_ITS ---
EXAMINATION: US venous doppler LE EXAM DATE: 03/13/2021 09:10 INDICATION: elevated d-dimer, wheelchair bound . Right-sided below-knee amputation. TECHNIQUE: Multiple grayscale, color flow and Doppler images of the lower extremity deep venous syste ms bilaterally were obtained and reviewed. Comparison is made to prior examination from 09/17/2019. FINDINGS: Right side: The right common femoral, femoral and profunda veins demonstrate normal color flow, respi ratory variation, augmentation and compressibility. Compressibility, color flow confirmed within the right popliteal, and greater saphenous veins. Left side: The left common femoral, femoral and profunda veins demonstrate normal color flow, respira tory variation, augmentation and compressibility. Compressibility, color flow confirmed within the l eft popliteal, posterior tibial, peroneal, and greater saphenous veins. IMPRESSION: 1. No lower extremity deep venous thrombosis bilaterally. Reviewed, dictated and finalized at location B. WALS MANAGER
--- NOTE | ~2021-03-12 | XR_ITS ---
EXAMINATION: XR chest 1V portable DATE: 03/12/2021 18:33 INDICATION: Altered level of consciousness. TECHNIQUE: A single frontal view of the chest was obtained. COMPARISON: Chest single view 06/27/2020 FINDINGS: The chest demonstrates clear lungs without pneumonia, pleural effusion, or pneumothorax. Th e heart size is normal. IMPRESSION: 1. No acute cardiopulmonary disease. Reviewed, dictated and finalized at location A. E SETTINGS PAINTER
--- NOTE | 2021-03-12 18:20 | ECG_ITS ---
Measurements Intervals [place] Rate: 87 P: 73 WV: 134 QRS: 30 QRSD: 94 T: 33 QT: 385 QTc: 464 Interpretive Statements SINUS RHYTHM BORDERLINE ST ABNORMALITY- ANTERIOR LEADS BASELINE ARTIFACT- I, II, III, AVR, AVL, AVF, V1-V6 BORDERLINE ECG Electronically Signed On 03-12-2021 20:15:26 RECONDITIONER by Aj Verdugo D.O.
[2021-03-12 18:21] VITALS: BP 142/77; PULSE 92; RESP 21; TEMP 33.7; O2SAT 98
--- NOTE | 2021-03-12 18:25 | ED.GENADULT ---
HPI - General Adult General Chief complaint: Altered Mental Status <BALDOMERO Brown BC - Last Filed: 03/12/21 21:13> Stated complaint: found on ground unresponsive bs 42 <BALDOMERO Brown BC - Last Filed: 03/12/21 21:13> Source: patient, family and EMS <BALDOMERO Brown BC - Last Filed: 03/12/21 21:13> Mode of arrival: EMS <BALDOMERO Brown BC - Last Filed: 03/12/21 21:13> Limitations: altered mental status <BALDOMERO Brown BC - Last Filed: 03/12/21 21:13> History of Present Illness HPI narrative: Patient brought in by EMS with reports of hypoglycemia. Initial report from nursing staff informed me that EMS was contacted for a low blood sugar. Patient's blood sugar was in the 40s and was given D50 en route. My initial assessment, patient is mumbling and is able to answer all orientation questions appropriately but does not answer the majority of my interview questions. Shortly after my arrival in the room, patient's father was at bedside. He indicates that patient was scheduled to arrive at their home at 5 PM. He did not arrive so he attempted to contact him via phone, unsuccessfully. He went to his residence and found patient laying face down on the ground. He was able to find help turn him onto his back and then contacted EMS. Father states that patient's blood sugars normally run in the 2 and 300s. He has an insulin pump upon my arrival at the bedside pump is not intact. On review device, it appears his blood sugar has been under 50 for the last 4 hours. Father states no one has been in contact with patient since yesterday around 5:30 PM to his knowledge. He is unsure whether pt sustained a recent injury but there was no evidence of such when he arrived there. Patient's father states that patient does not consume alcohol and does not smoke/use illicit drugs. Upon chart review he has a history of diabetes mellitus type 1 s/p right BKA, chronic kidney disease stage III, diabetic neuropathy, angiopathy status post iliac artery stenting, retinopathy, peripheral vascular disease, mitral valve regurgitation. He was admitted back on 03/12/2020 due to a foot ulcer and had debridement, was treated with antibiotics and discharged with a wound VAC instructed to follow-up with vascular surgery due to occlusion. She was evaluated by Dr. Oro, vascular had a right lower extremity angiography, popliteal angioplasty and stenting, thrombectomy, anterior tibial angioplasty, posterior tibial atherectomy and angioplasty. She had a recurrent occlusion of his SFA and had a BKA of right lower extremity on 06/14/2020. <BALDOMERO Brown BC - Last Filed: 03/12/21 21:13> Related Data Home medications: Home Medications Medication Instructions Recorded Confirmed ezetimibe 10 mg tablet 10 mg PO DAILY 11/24/19 12/07/20 rosuvastatin 20 mg tablet 20 mg PO DAILY 02/21/20 12/07/20 ramipril 2.5 mg capsule 2.5 mg PO DAILY 06/27/20 12/07/20 <BALDOMERO Brown BC - Last Filed: 03/12/21 21:13> Allergies/adverse reactions: Allergies Allergy/AdvReac Type Severity Reaction Status Date / Time No Known Allergies Allergy Unknown Verified 03/12/21 19:35 <BALDOMERO Brown BC - Last Filed: 03/12/21 21:13> Review of Systems Review of Systems: ROS unobtainable: Yes unobtainable due to mental status <BALDOMERO Brown BC - Last Filed: 03/12/21 21:13> [facility] Past Medical History Medical History: Medical History Ambulatory dysfunction 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 Anemia in chronic kidney disease Anxiety Chronic kidney disease, stage 3 (moderate) Baseline creatinine is between 1.3 and 1.40. Closed patellar sleeve fracture of left knee Depression Insomnia Kidney stones Major depressive disorder, recurrent, moderate Mixed hyperlipidemia Obstructive s
[2021-03-12] MEDS: DEXTROSE 50% 25 GM/50 ML SYRINGE IV PUSH (18:26)
[2021-03-12 18:30] VITALS: BP 152/76; PULSE 84; RESP 19; O2SAT 98
[2021-03-12 18:30] LABS: Glucose Point of Care 78 mg/dl (65-105)
[2021-03-12 18:31] LABS: Basophils Absolute Auto 0.1 K/mm3 (0.0-0.1); Basophils Percent Auto 0.7 % (0.2-1.2); Eosinophils Absolute Auto 0.1 K/mm3 (0-0.3); Eosinophils Percent Auto 1.3 % (0-4.4); Hematocrit 40.7 % (42.0-52.0); Immature Granulocyte Absolute 0.07 K/mm3 (0.00-0.031); Immature Granulocyte Percent A 0.8 % (0-0.5); Lymphocytes Absolute Auto 2.51 K/mm3 (0.9-3.2); Lymphocytes Percent Auto 29.8 % (18.3-44.2); Mean Corpuscular HGB Conc 31.9 g/dl (32-36); Mean Corpuscular Volume 96.9 fl (80-100); Mean Platelet Volume 9.2 fl (7.4-10.4); Monocytes Absolute Auto 0.5 K/mm3 (0.1-0.6); Monocytes Percent Auto 6.3 % (2.6-8.5); Neutrophils Absolute Auto 5.1 K/mm3 (1.3-6.7); Neutrophils Percent Auto 61.1 % (45.5-73.1); Platelet Count Result 383 k/mm3 (150-375); Red Cell Distribution Width 12.4 % (11.5-14.5); White Blood Count 8.4 K/mm3 (4.5-10.0)
[2021-03-12 18:40] LABS: Prothrombin Time 12.7 Seconds (11.1-14.7)
[2021-03-12 18:41] LABS: Partial Thromboplastin Time 27.1 SECONDS (22.3-36.8)
[2021-03-12 18:42] LABS: Ethanol < 10 mg/dL (<10)
[2021-03-12 18:43] LABS: D Dimer 0.92 ug/mL (<0.48)
[2021-03-12 18:47] LABS: Alanine Aminotransferase 17 U/L (4-50); Alkaline Phosphatase 111 U/L (38-126); Anion Gap 19 mmol/L (8-16); Aspartate Amino Transferase 30 U/L (17-59); Bilirubin,Total 0.5 mg/dL (0.2-1.3); Blood Urea Nitrogen 26 mg/dL (9-20); Calcium 10.9 mg/dL (8.4-10.2); Carbon Dioxide 22 mmol/L (22-30); Chloride 103 mmol/L (98-107); Creatine Kinase 109 U/L (55-170); Estimated CRCL calculation 48 ml/min; Estimated Glomerular Filt Rate 56; Glucose 142 mg/dL (65-110); Sodium 144 mmol/L (137-145)
[2021-03-12 18:48] LABS: Potassium 4.3 mmol/L (3.4-5.0)
[2021-03-12 18:53] LABS: Troponin I < 0.012 ng/mL (0.000-0.034)
[2021-03-12 19:27] VITALS: BP 130/57; PULSE 92; RESP 13; TEMP 35.4; O2SAT 100
[2021-03-12 19:39] LABS: Glucose Point of Care 289 mg/dl (65-105)
[2021-03-12 19:42] LABS: Lactic Acid Reflex 4.3 mmol/L (0.7-2.1)
[2021-03-12 20:07] VITALS: TEMP 35.4
--- NOTE | 2021-03-12 20:09 | PC.NURSE ---
Pt wears insulin pump, which was removed by prior RN on pt's arrival. IO removed intact by this RN. Pt has RIGHT BKA, left ring finger distal amputation. reports chronic numbness d/t peripheral neuropathy in left lower leg and foot. reports he uses a cane and wc at home, where he lives alone.
[2021-03-12] MEDS: SODIUM CHLORIDE 0.9% IV 1,000 ML 999 ML IV CONT (20:17)
[2021-03-12 20:35] LABS: Add Urine Microscopic? YES; Appearance Urine Clear (Clear); Bilirubin Urine Negative (Negative); Blood Urine Negative (Negative); Color Urine Yellow (Yellow); Glucose Urine UA 3+ mg/dL (Negative); Ketones Urine Negative (Negative); Leukocyte Esterase Ur Negative LEU/UL (Negative); Mucus Urine Rare /lpf; Nitrate Urine Negative (Negative); Protein Urine Negative (Negative); RBC Urine 0-2 /hpf (0-2); Specific Grav Ur 1.013 (1.001-1.035); Squamous Epithelial Cell Urine Rare /hpf (Few); Urobilinogen Urine Negative mg/dL (<2.0); WBC Urine 0-3 /hpf
[2021-03-12 20:56] LABS: Glucose Point of Care 288 mg/dl (65-105)
[2021-03-12 21:05] LABS: Benzodiazepines Screen Urine Negative (Negative)
[2021-03-12 21:07] LABS: Barbiturate Screen Urine Negative (Negative)
[2021-03-12 21:08] LABS: Amphetamine Screen Urine Negative (Negative); Cannabinoid Screen Urine Negative (Negative); Cocaine Screen Urine Negative (Negative); Methadone Screen Urine Negative (Negative); Opiate Screen Urine Negative (Negative); Phencyclidine Screen Urine Negative (Negative)
[2021-03-12 21:13] VITALS: TEMP 35.6
--- NOTE | 2021-03-12 21:23 | PM.IMHP ---
H&P: HPI History of Present Illness Date/Time: 03/12/21 21:23 Chief Complaint: Altered mental status Narrative: This is a 66-year-old male with past medical history significant for type 1 diabetes mellitus patient has been on insulin pump for 25 years, he he has a right lower extremity [id number] amputation, patient uses wheelchair at home but also has prosthetic device and cane and is able to walk. Patient was brought to the emergency room via EMS after his father found him unresponsive laying on the floor on prone position got out to find help and got a neighbord who help him turn him on his back according to diet his glucometer was reading a sugar of 40 according to father they had made plans to have denied at around 5:00 p.m. and when his son did not show up call him on his phone and he was not responding prompting him to come check on him. EMS was called and the patient was brought to the emergency room. Upon arrival patient was found to have a blood glucose of 78 after D50 and route an a initial body temperature of 92.7? he was immediately placed on a Bao Hugger and resuscitated with fluids and dextrose subsequent readings were much higher. According to patient he has been his usual state of health states that he has snacks at home and he had noticed a decrease in his sugar and was trying to get something to eat when he passed out, he denies any fevers, any chills, any rigors, any nausea, vomiting ,diarrhea ,shortness of breath, cough, sputum production. Preliminary workup has been essentially nonrevealing except for the findings above mentioned. Review of Systems Review of Systems: Syncope, low blood sugar. Constitutional: Constitutional: Denies chills, Denies fatigue, Denies fever(s), Denies frequent falls, Denies malaise, Denies night sweats, Denies poor appetite, Denies weakness and Denies weight loss Eyes: Eyes: Denies change in vision ENT: Denies dysphagia, Denies vertigo, Denies dizziness, Denies nasal congestion, Denies nasal discharge, Denies nasal obstruction and Denies odynophagia Cardiovascular: Cardiovascular: Denies chest pain at rest, Denies irregular heart rhythm, Denies claudication, Denies lightheadedness, Denies radiating jaw, neck or arm pain, Denies palpitations, Denies dyspnea, Denies dyspnea on exertion and Denies orthopnea Respiratory: Respiratory: Denies change in phlegm color, Denies cough, Denies excessive phlegm production, Denies dyspnea and Denies wheezing Gastrointestinal: Gastrointestinal: Denies abdominal pain, Denies dyspepsia, Denies heartburn, Denies diarrhea, Denies nausea and Denies vomiting Genitourinary: Genitourinary: Denies dysuria Musculoskeletal: Musculoskeletal: Denies arthralgias Comments: Right BKA Integumentary/Breasts: Skin/Breast: Denies rash Neurologic: Denies vertigo, Denies dizziness, Reports syncope, Denies focal weakness, Denies Sensory deficit (Neuro) and Reports paresthesias Psychiatric: Psychiatric: Reports no additional psychiatric complaints and Reports as per HPI Endocrine: Endocrine: Denies polyphagia, Denies polydipsia and Denies polyuria Comments: Low blood sugar Hematologic/Lymphatic: Hematologic/Lymphatic: Reports no additional hematologic/lymphatic complaints and Reports as per HPI Allergic/Immunologic: Allergic/Immunologic: Reports no additional allergic/immunologic complaints and Reports as per HPI [facility] Past Medical History Medical History (Updated 03/13/21 @ 03:12 by Siva Day MD) Ambulatory dysfunction 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 Anemia in chronic kidney disease Anxiety Chronic kidney disease, stage 3 (moderate) Baseline creatinine is between 1.3 and 1.40. Closed patellar sleeve fracture of left knee Depression Insomnia Kidney stones Major depressive disorder, recurrent, moderate Mixed hyperlipidemia Obstructive sleep apnea Peripheral vascular disease Type 1 diabetes mellitus Complicated by d
[2021-03-12 21:47] LABS: Troponin I < 0.012 ng/mL (0.000-0.034)
[2021-03-12 21:54] VITALS: BP 141/66; PULSE 100; RESP 14; TEMP 36.3; O2SAT 100
[2021-03-12 22:28] LABS: Reflex Lactic Acid Yes or No Add Lactic
[2021-03-12 22:55] LABS: Lactic Acid 1.8 mmol/L (0.7-2.1)
[2021-03-12 23:09] LABS: Glucose Point of Care 372 mg/dl (65-105)
[2021-03-13 00:16] VITALS: BP 153/72; PULSE 96; RESP 20; O2SAT 100
[2021-03-13 01:06] LABS: Glucose Point of Care 360 mg/dl (65-105)
--- NOTE | 2021-03-13 01:09 | PC.NURSE ---
Accucheck 360.
[2021-03-13 01:21] VITALS: BP 156/96; PULSE 95; RESP 18; O2SAT 99
[2021-03-13 02:04] VITALS: BP 142/68; PULSE 69; RESP 17; TEMP 36.2; O2SAT 99
[2021-03-13 03:17] VITALS: BP 122/52; PULSE 93; RESP 18; O2SAT 98
[2021-03-13] MEDS: INSULIN ASPART (*BKC) 100 UNITS/ML 10 UNITS SUB-Q (03:29)
[2021-03-13 03:41] LABS: Glucose Point of Care 436 mg/dl (65-105)
[2021-03-13 03:47] VITALS: BP 108/48; PULSE 96; RESP 18; TEMP 36.1; O2SAT 100
[2021-03-13 03:49] VITALS: BMI 21.5
[2021-03-13] MEDS: SODIUM CHLORIDE 0.9% IV 1,000 ML 125 ML IV CONT (03:50)
--- NOTE | 2021-03-13 04:37 | PC.NURSE ---
This patient, Guerrero Yang Jr., was admitted to Medical Room 340-01. Patient/family oriented to hospital policies and general routines including ID bracelet, bed and alarms, visiting hours, pain management, procedures, bathroom and other care routines, personal items, smoking policy, room service/diet, and visiting hours. Information on how to activate the Rapid Response Team has been discussed. Patient/Family are encouraged to report perceived risks to care and to ask questions if they do not understand what they are told or what they should do.
[2021-03-13 06:54] LABS: Basophils Percent Auto 0.3 % (0.2-1.2); Hematocrit 30.1 % (42.0-52.0); Hemoglobin 9.9 g/dL (14.0-18.0); Immature Granulocyte Absolute 0.07 K/mm3 (0.00-0.031); Immature Granulocyte Percent A 0.6 % (0-0.5); Lymphocytes Absolute Auto 1.38 K/mm3 (0.9-3.2); Mean Corpuscular HGB Conc 32.9 g/dl (32-36); Mean Corpuscular Hemoglobin 31.1 pg (26-34); Mean Corpuscular Volume 94.7 fl (80-100); Mean Platelet Volume 9.3 fl (7.4-10.4); Monocytes Absolute Auto 0.8 K/mm3 (0.1-0.6); Monocytes Percent Auto 6.6 % (2.6-8.5); Neutrophils Absolute Auto 10.3 K/mm3 (1.3-6.7); Neutrophils Percent Auto 81.5 % (45.5-73.1); Platelet Count Result 313 k/mm3 (150-375); Red Blood Count 3.18 M/mm3 (4.6-6.20); Red Cell Distribution Width 12.3 % (11.5-14.5); White Blood Count 12.6 K/mm3 (4.5-10.0)
[2021-03-13 07:04] LABS: Anion Gap 11 mmol/L (8-16); Blood Urea Nitrogen 34 mg/dL (9-20); Calcium 9.3 mg/dL (8.4-10.2); Carbon Dioxide 23 mmol/L (22-30); Chloride 103 mmol/L (98-107); Estimated CRCL calculation 47 ml/min; Estimated Glomerular Filt Rate 56; Glucose 313 mg/dL (65-110); Potassium 4.7 mmol/L (3.4-5.0); Sodium 137 mmol/L (137-145)
[2021-03-13 07:51] LABS: Glucose Point of Care 262 mg/dl (65-105)
[2021-03-13 08:07] LABS: Hemoglobin A1C 7.5 % (<5.7)
[2021-03-13] MEDS: INSULIN ASPART (*BKC) 100 UNITS/ML SUB-Q ×4 (08:13→12:19)
[2021-03-13] MEDS: EZETIMIBE 10 MG TABLET PO (08:18)
[2021-03-13] MEDS: ROSUVASTATIN 10 MG TABLET 20 MG PO (08:18)
[2021-03-13] MEDS: DULoxetine HCL 60 MG CAPSULE.DR PO (08:18)
[2021-03-13] MEDS: INSULIN GLARGINE (*BKC) 100 UNITS/ML 10 UNITS SUB-Q (08:20)
[2021-03-13 09:45] VITALS: BMI 21.5
[2021-03-13] MEDS: PANTOPRAZOLE 40 MG TABLET PO (11:30)
[2021-03-13 11:56] LABS: Hematocrit 29.2 % (42.0-52.0); Hemoglobin 9.6 g/dL (14.0-18.0)
[2021-03-13 12:00] VITALS: BP 120/58; PULSE 90; RESP 16; TEMP 36.4; O2SAT 97
[2021-03-13 12:15] LABS: Glucose Point of Care 280 mg/dl (65-105)
--- NOTE | 2021-03-13 12:50 | PM.DS ---
DS: Admitting Diagnosis Discharge Date 03/13/21 Admitting Diagnosis Hypoglycemia DS: Discharge Diagnosis Discharge Diagnosis (1) Hypoglycemia: Code(s): E16.2 - Hypoglycemia, unspecified Status: Acute (2) Hypothermia: Qualifiers: Encounter type: initial encounter Qualified Code(s): T68.XXXA - Hypothermia, initial encounter Code(s): T68.XXXA - Hypothermia, initial encounter Status: Acute Assessment and Plan: Resolved Likely secondary to prolonged stress secondary to hypoglycemia (3) Acidosis, lactic: Code(s): E87.2 - Acidosis Status: Acute Assessment and Plan: resolved Likely secondary to hypoglycemia Clinically no signs of infection (4) Below-knee amputation of right lower extremity: Code(s): S88.111A - Complete traumatic amputation at level between knee and ankle, right lower leg, initial encounter Status: Acute (5) Altered mental status: Qualifiers: Altered mental status type: transient alteration of awareness Qualified Code(s): R40.4 - Transient alteration of awareness Code(s): R41.82 - Altered mental status, unspecified Status: Acute Assessment and Plan: Resolved Likely secondary to hypoglycemia (6) Peripheral vascular angioplasty status with implants and grafts: Code(s): Z95.820 - Peripheral vascular angioplasty status with implants and grafts Status: Acute (7) Chronic kidney disease, stage 3 (moderate): Code(s): N18.3 - Chronic kidney disease, stage 3 (moderate) Status: Chronic (8) Neuropathy: Code(s): G62.9 - Polyneuropathy, unspecified Status: Acute (9) FARNAZ (obstructive sleep apnea): Code(s): G47.33 - Obstructive sleep apnea (adult) (pediatric) Status: Acute (10) Type 1 diabetes mellitus: Code(s): E10.9 - Type 1 diabetes mellitus without complications Status: Inactive (11) Esophagitis: Code(s): K20.90 - Esophagitis, unspecified without bleeding Status: Acute DS: Summary Hospital Course Hospital Course: Date of service 03/13/2021 Patient is a 66-year-old male with a history of type 1 diabetes, peripheral vascular disease, chronic kidney disease and hypoglycemic episodes who presented emergency room after being found down. Patient states the last thing he remembers is noticing his blood sugar was low and he went to stand up from his chair and fell. The likely his father went over to check on him and found him down. EMS was called and his blood sugar was 42 and he was given glucagon and D10. Vitals in the ER were temperature 33.7? C, pulse 92, respiratory rate 21, blood pressure 142/77, pulse ox 98 on room air. CBC showed chronic anemia with hemoglobin 13.0, hematocrit 40.7. BMP showed a elevated anion gap and CO2 22. His D-dimer was elevated slightly 0.92. Lactic acid was elevated 4.3. Liver enzymes were normal. UA and urine drug screen negative. Troponins negative x2. Head CT was negative for acute pathology. CTA of the chest showed no PE but did show esophagitis. Venous Doppler showed no lower extremity DVTs. Patient was admitted to the hospitalist service and his glucose and lab abnormalities improved. Today he felt completely fine. He typically uses a insulin pump and sees Dr. Jha. I called their office and spoke with him about his insulin needs. The cadd instructor also came and talked to him as well. He is going to start paying attention to his dexcom. I have also asked him to review his last week of glucoses is to see if there is a pattern. He has an appointment with his repairer hairspring on April 19 and he is going to follow up with them at that point. He was noted to have a hemoglobin of 13 on admission which is significantly higher than his baseline. I think this may be inflated as his next two labs were more consistent with his baseline. Last hemoglobin 9.6. No evidence of bleeding per history. He girrad
== END 2021-03-13 13:45 | disposition home or self-care (01) ==
LOC: ANHED 21:13 → ANH3MED 03-13 01:42
PROVIDERS: Physician Assistant; Admitting Provider Internal Medicine; Emergency Provider Nurse Practitioner; PCP Family Medicine; Visit Provider Internal Medicine
DX: E10.649 Type 1 diabetes mellitus with hypoglycemia without coma (principal); Z96.41 Presence of insulin pump (external) (internal); E10.42 Type 1 diabetes mellitus with diabetic polyneuropathy; Z89.511 Acquired absence of right leg below knee; E10.22 Type 1 diabetes mellitus with diabetic chronic kidney disease; N18.30 Chronic kidney disease, stage 3 unspecified; K20.90 Esophagitis, unspecified without bleeding; E10.51 Type 1 diabetes mellitus with diabetic peripheral angiopathy without gangrene; R79.1 Abnormal coagulation profile; Z79.899 Other long term (current) drug therapy
CPT/HCPCS: 36415; 70450; 71045; 71275; 80048; 80053; 80307; 81001; 82550; 82948; 83036; 83605; 84484; 85014; 85018; 85025; 85380; 85610; 85730; 93005; 93970; 96361; 96374; 99285; A9270; G0378; J1815; J7030; Q9967

== ENCOUNTER 2021-06-15 17:15 | Observation (INO) | payer OTHER, SELFPAY ==
--- NOTE | ~2021-06-15 | XR_ITS ---
EXAMINATION: XR chest 1V portable EXAM DATE: 06/15/2021 17:59 INDICATION: AMS, found unresponsive today w/ low bp, hx pvd TECHNIQUE: Portable AP frontal chest x-ray was obtained. Comparison is made to prior examination from 03/12/2021. FINDINGS: The lungs are clear. There are no pleural effusions. The cardiomediastinal silhouette is within normal limits. There is no pneumothorax suspected. The bones and soft tissues are unremarkab le. IMPRESSION: No acute cardiopulmonary findings. Reviewed, dictated and finalized at location G. ENGINEER
--- NOTE | ~2021-06-15 | CT_ITS ---
EXAMINATION: CT brain wo con EXAM DATE: 06/15/2021 17:37 INDICATION: AMS, hypoglycemia . Stroke Protocol. Uneven pupils. TECHNIQUE: Spiral CT of the head was performed without contrast. Axial, coronal and sagittal images were reviewed. The dose-length product (DLP) for this examination was 681.00 mGy-cm. The exposure w as tailored according to patient size, and iterative reconstruction (ASIR) was used as additional dos e reduction technique. There is no prior study for comparison. FINDINGS: Study is limited due to patient motion. There is no acute intraparenchymal hemorrhage. No evidence of intraparenchymal brain mass lesion. No evidence of acute infarction. There is no mass e ffect or midline shift. The ventricles are normal in size. There are no extra-axial collections. T here are no acute calvarial fractures. The orbits are unremarkable. Soft tissue is unremarkable. Th e visualized sinuses and mastoid air cells are well aerated. IMPRESSION: Somewhat limited, but no evidence of acute intracranial findings. As per stroke protocol, I called these results to emergency room, discussed with KELSEY Olvera at 06/15/2021 17:36 PHARMACY DIRECTOR . Reviewed, dictated and finalized at location G. MACY DIRECTOR IMPRESSION: Somewhat limited, but no evidence of acute intracranial findings. As per stroke protocol, I called these results to emergency room, discussed wit h Karen Hutchison PA-C at 06/15/2021 17:36 PHARMACY DIRECTOR .
[2021-06-15 17:17] VITALS: TEMP 37.2
--- NOTE | 2021-06-15 17:20 | ECG_ITS ---
Measurements Intervals [place] Rate: 97 P: -7 [place]: 140 QRS: 2 QRSD: 90 T: 5 QT: 348 QTc: 444 Interpretive Statements SINUS RHYTHM BORDERLINE ST-T WAVE ABNORMALITY- DIFFUSE LEADS BASELINE ARTIFACT- I, II, III, AVR, AVL, AVF, V1-V3 BORDERLINE ECG Electronically Signed On 06-16-2021 7:55:50 COD CLERK by Aj Verdugo D.O.
[2021-06-15 17:26] LABS: Glucose Point of Care 104 mg/dl (65-105)
[2021-06-15 17:43] VITALS: BP 95/51; PULSE 98; RESP 99
--- NOTE | 2021-06-15 17:49 | ED.AMS ---
HPI - Altered Mental Status General Chief Complaint: Altered Mental Status <Karen Hutchison PA-C - Last Filed: 06/15/21 19:02> Stated Complaint: hypoglycemic <Karen Hutchison PA-C - Last Filed: 06/15/21 19:02> Time Seen by Provider: 06/15/21 17:21 <Karen Hutchison PA-C - Last Filed: 06/15/21 19:02> Source: EMS <Karen Hutchison PA-C - Last Filed: 06/15/21 19:02> Mode of arrival: EMS <MARY Olvera Last Filed: 06/15/21 19:02> Limitations: altered mental status <MARY Olvera Last Filed: 06/15/21 19:02> History of Present Illness HPI narrative: This is a 66 year old male that presents to the ER via EMS for altered mental status. Patient's father found him sitting on his couch confused. EMS was called and his blood sugar was found to be 16. He was given D50 with improvement in blood sugar, but continued symptoms of confusion. Patient is moving all extremities. Does not follow commands. Is not able to answer any questions. Reportedly last known well was between 12-1pm. <Karen Hutchison PA-C - Last Filed: 06/15/21 19:02> Related Data Home Medications: Home Medications Medication Instructions Recorded Confirmed ezetimibe 10 mg tablet 10 mg PO DAILY 11/24/19 04/19/21 rosuvastatin 20 mg tablet 20 mg PO DAILY 02/21/20 04/19/21 ramipril 2.5 mg capsule 2.5 mg PO DAILY 06/27/20 04/19/21 clonazepam 0.5 mg PO DAILY PRN 03/13/21 04/19/21 pantoprazole 40 mg tablet,delayed 40 mg PO DAILY tablet 04/19/21 04/19/21 release gabapentin 100 mg capsule 100 mg PO DAILY 05/18/21 <MARY Olvera Last Filed: 06/15/21 19:02> Allergies/Adverse Reactions: Allergies Allergy/AdvReac Type Severity Reaction Status Date / Time No Known Allergies Allergy Unknown Verified 05/18/21 09:03 <Karen Hutchison PA-C - Last Filed: 06/15/21 19:02> Review of Systems Review of Systems: ROS unobtainable: Yes unobtainable due to mental status <Karen Hutchison PA-C - Last Filed: 06/15/21 19:02> [facility] Past Medical History Medical History: Medical History Ambulatory dysfunction 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 Anemia in chronic kidney disease Anemia in chronic kidney disease (CKD) Anxiety Chronic kidney disease, stage 3 (moderate) Baseline creatinine is between 1.3 and 1.40. Closed patellar sleeve fracture of left knee Depression Hyperlipidemia due to type 1 diabetes mellitus Insomnia Kidney stones Major depressive disorder, recurrent, moderate Mixed hyperlipidemia Obstructive sleep apnea Peripheral vascular disease Type 1 diabetes mellitus Complicated by diabetic retinopathy, nephropathy, and neuropathy. Most recent hemoglobin A1c was 8.9%. Vitamin D insufficiency <Karen Hutchison PA-C - Last Filed: 06/15/21 19:02> Surgical History Surgical History: Surgical History History of transmetatarsal amputation of right foot (~06/2019) Peripheral vascular angioplasty status with implants and grafts <Karen Hutchison PA-C - Last Filed: 06/15/21 19:02> Family History Family History: Family History Father Acute myocardial infarction CABG Mother Hypothyroid Breast cancer Mother Family history of cataracts Father Malignant neoplasm of prostate Cerebrovascular accident Sibling Patient's brother is Other Family history of arthritis Family history of cardiovascular disease Family history of malignant neoplasm <Karen Hutchison PA-C - Last Filed: 06/15/21 19:02> Social History Social History: Social History Social History: Surrogate decision maker: Guerrero Yang Sr. (father). Code status: Full code. Second hand tobacco smoke expos
[2021-06-15 18:08] LABS: Basophils Absolute Auto 0.1 K/mm3 (0.0-0.1); Basophils Percent Auto 0.4 % (0.2-1.2); Eosinophils Absolute Auto 0.1 K/mm3 (0-0.3); Eosinophils Percent Auto 0.6 % (0-4.4); Hematocrit 36.3 % (42.0-52.0); Hemoglobin 11.9 g/dL (14.0-18.0); Immature Granulocyte Absolute 0.07 K/mm3 (0.00-0.031); Immature Granulocyte Percent A 0.6 % (0-0.5); Lymphocytes Absolute Auto 1.45 K/mm3 (0.9-3.2); Lymphocytes Percent Auto 11.6 % (18.3-44.2); Mean Corpuscular HGB Conc 32.8 g/dl (32-36); Mean Corpuscular Volume 94.5 fl (80-100); Mean Platelet Volume 9.5 fl (7.4-10.4); Monocytes Absolute Auto 0.6 K/mm3 (0.1-0.6); Neutrophils Absolute Auto 10.3 K/mm3 (1.3-6.7); Neutrophils Percent Auto 81.8 % (45.5-73.1); Platelet Count Result 324 k/mm3 (150-375); Red Blood Count 3.84 M/mm3 (4.6-6.20); Red Cell Distribution Width 12.7 % (11.5-14.5); White Blood Count 12.5 K/mm3 (4.5-10.0)
[2021-06-15 18:16] LABS: Ethanol < 10 mg/dL (<10); Prothrombin Time 12.9 Seconds (11.1-14.7)
[2021-06-15 18:17] LABS: Partial Thromboplastin Time 27.2 SECONDS (22.3-36.8)
[2021-06-15 18:18] LABS: Alanine Aminotransferase 16 U/L (4-50); Albumin Level 4.5 g/dL (3.5-5.1); Alkaline Phosphatase 102 U/L (38-126); Anion Gap 9 mmol/L (8-16); Aspartate Amino Transferase 30 U/L (17-59); Bilirubin,Total 0.5 mg/dL (0.2-1.3); Blood Urea Nitrogen 17 mg/dL (9-20); Calcium 9.9 mg/dL (8.4-10.2); Carbon Dioxide 27 mmol/L (22-30); Chloride 107 mmol/L (98-107); Estimated CRCL calculation 60 ml/min; Estimated Glomerular Filt Rate > 60; Glucose 133 mg/dL (65-110); Lactic Acid Reflex 3.3 mmol/L (0.7-2.1); Potassium 3.9 mmol/L (3.4-5.0); Sodium 143 mmol/L (137-145)
[2021-06-15 18:19] LABS: CRP < 0.5 mg/dL (<1.0)
[2021-06-15 18:20] LABS: Add Urine Microscopic? YES; Appearance Urine Clear (Clear); Bilirubin Urine Negative (Negative); Blood Urine Negative (Negative); Color Urine Yellow (Yellow); Glucose Urine UA 3+ mg/dL (Negative); Ketones Urine Negative (Negative); Leukocyte Esterase Ur Negative LEU/UL (Negative); Nitrate Urine Negative (Negative); Protein Urine Negative (Negative); Specific Grav Ur 1.013 (1.001-1.035); Urobilinogen Urine Negative mg/dL (<2.0); WBC Urine 0-3 /hpf
[2021-06-15 18:29] LABS: Troponin I < 0.012 ng/mL (0.000-0.034)
[2021-06-15 18:32] LABS: Amphetamine Screen Urine Negative (Negative); Barbiturate Screen Urine Negative (Negative); Benzodiazepines Screen Urine Negative (Negative); Cannabinoid Screen Urine Negative (Negative); Cocaine Screen Urine Negative (Negative); Methadone Screen Urine Negative (Negative); Opiate Screen Urine Negative (Negative); Phencyclidine Screen Urine Negative (Negative)
--- NOTE | 2021-06-15 19:08 | PM.IMHP ---
H&P: HPI History of Present Illness Date/Time: 06/15/21 19:08 this is a 66-year-old male patient who has insulin-dependent diabetes type 1 who was diagnosed at the age of [age] years old. The patient lives home alone and typically takes care of himself. The EMS was activated today due to altered mental status. The patient's father found him sitting on his couch and he was confused. EMS was called and his blood sugar was found to be 16. The patient was given D50 with improvement of blood sugar but the patient remained confused. The patient is very restless. He was unable to answer questions at this time. Although he is asking me for a glass of water. Head CT was read as somewhat limited but no evidence of acute intracranial findings. Chest x-ray was read as no acute cardiopulmonary findings. The patient keeps grabbing his head and he was given IV Tylenol. The patient has an insulin pump which was removed when he came to the emergency room. The patient is being admitted to observation on the date of service of 06/15/2021. Chief Complaint: Confusion Review of Systems Review of Systems: ROS unobtainable: Yes unobtainable due to medical condition Gastrointestinal: Gastrointestinal: Reports as per HPI Musculoskeletal: Musculoskeletal: Reports no additional musculoskeletal complaints Allergic/Immunologic: Comments: His father is at the bedside answering questions. 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 Anemia in chronic kidney disease Anemia in chronic kidney disease (CKD) Anxiety Chronic kidney disease, stage 3 (moderate) Baseline creatinine is between 1.3 and 1.40. Closed patellar sleeve fracture of left knee Depression Hyperlipidemia due to type 1 diabetes mellitus Insomnia Kidney stones Major depressive disorder, recurrent, moderate Mixed hyperlipidemia Obstructive sleep apnea Peripheral vascular disease Type 1 diabetes mellitus Complicated by diabetic retinopathy, nephropathy, and neuropathy. Most recent hemoglobin A1c was 8.9%. Vitamin D insufficiency Surgical History Surgical History (Updated 06/15/21 @ 21:39 by Suzan Monte NP) History of right below knee amputation History of transmetatarsal amputation of right foot (~06/2019) Peripheral vascular angioplasty status with implants and grafts Family History Family History Father Acute myocardial infarction CABG Mother Hypothyroid Breast cancer Mother Family history of cataracts Father Malignant neoplasm of prostate Cerebrovascular accident Sibling Patient's brother is Other Family history of arthritis Family history of cardiovascular disease Family history of malignant neoplasm Social History Social History (Updated 06/15/21 @ 21:42 by Suzan Monte NP) Social History: . He also has a prosthesis for the right leg. He has no biological children. He did have 2 step children when he was . Surrogate decision maker: Guerrero Yang Sr. (father). Code status: Full code. Smoking status: Never smoker Second hand tobacco smoke exposure: No Alcohol intake: never Substance use: never Substance use type: does not use Living arrangements: alone Additional living arrangements comments: . Lives in his own home in [place]. Ambulates with a cane. He has a prosthesis for the right leg Additional occupation/education comments: Disabled. Gender identity (if verbalized by the patient): Male Sexual Orientation (if Verbalized by the Patient): Straight or Heterosexual Spiritual care concerns: No Agree to blood products: Yes Meds Home Medications and Allergies Home Medications Medication Instructions Recorded Confirmed Type ezetimibe 10 m
[2021-06-15 19:27] LABS: Glucose Point of Care 141 mg/dl (65-105)
[2021-06-15 20:04] LABS: SARS-CoV-2 RNA PCR Negative
[2021-06-15 20:31] VITALS: BP 136/52; PULSE 103; RESP 19; O2SAT 97
[2021-06-15 21:04] LABS: Reflex Lactic Acid Yes or No Add Lactic
[2021-06-15 21:34] LABS: Lactic Acid 1.5 mmol/L (0.7-2.1)
[2021-06-15 22:15] VITALS: BP 115/45; PULSE 108; RESP 16; TEMP 36.1; O2SAT 100
--- NOTE | 2021-06-15 22:39 | ADMGEN ---
This patient, Guerrero Yang Jr., was admitted to IMU Room 206-02, arrived at 2215. Patient/family oriented to hospital policies and general routines including ID bracelet, bed and alarms, visiting hours, pain management, procedures, bathroom and other care routines, personal items, smoking policy, room service/diet, and visiting hours. Information on how to activate the Rapid Response Team has been discussed. Patient/Family are encouraged to report perceived risks to care and to ask questions if they do not understand what they are told or what they should do.
[2021-06-15 22:47] VITALS: BMI 22.6
[2021-06-16] VITALS (9 sets, daily range): BP systolic 98–129; BP diastolic 42–62; PULSE 85–98; RESP 18–20; TEMP 36–36.8; O2SAT 99–100
[2021-06-16 01:12] LABS: Glucose Point of Care 429 mg/dl (65-105)
[2021-06-16 03:14] LABS: Glucose Point of Care 497 mg/dl (65-105)
[2021-06-16] MEDS: INSULIN ASPART (*BKC) 100 UNITS/ML 12 UNITS SUB-Q (04:00)
[2021-06-16 05:05] LABS: Basophils Percent Auto 0.1 % (0.2-1.2); Hematocrit 29.9 % (42.0-52.0); Hemoglobin 9.5 g/dL (14.0-18.0); Immature Granulocyte Absolute 0.09 K/mm3 (0.00-0.031); Immature Granulocyte Percent A 0.6 % (0-0.5); Lymphocytes Absolute Auto 0.48 K/mm3 (0.9-3.2); Lymphocytes Percent Auto 3.3 % (18.3-44.2); Mean Corpuscular HGB Conc 31.8 g/dl (32-36); Mean Corpuscular Hemoglobin 30.3 pg (26-34); Mean Corpuscular Volume 95.2 fl (80-100); Mean Platelet Volume 9.8 fl (7.4-10.4); Monocytes Absolute Auto 0.3 K/mm3 (0.1-0.6); Monocytes Percent Auto 1.9 % (2.6-8.5); Neutrophils Absolute Auto 13.9 K/mm3 (1.3-6.7); Neutrophils Percent Auto 94.1 % (45.5-73.1); Platelet Count Result 256 k/mm3 (150-375); Red Blood Count 3.14 M/mm3 (4.6-6.20); Red Cell Distribution Width 12.6 % (11.5-14.5); White Blood Count 14.7 K/mm3 (4.5-10.0)
[2021-06-16 05:07] LABS: Glucose Point of Care 435 mg/dl (65-105)
[2021-06-16 05:16] LABS: D Dimer 0.62 ug/mL (<0.48)
[2021-06-16 05:24] LABS: Lactic Acid Reflex 4.4 mmol/L (0.7-2.1)
[2021-06-16 05:30] LABS: Alanine Aminotransferase 27 U/L (4-50); Alkaline Phosphatase 92 U/L (38-126); Anion Gap 14 mmol/L (8-16); Aspartate Amino Transferase 41 U/L (17-59); Bilirubin,Total 1.2 mg/dL (0.2-1.3); Blood Urea Nitrogen 32 mg/dL (9-20); CRP 0.8 mg/dL (<1.0); Calcium 9.2 mg/dL (8.4-10.2); Carbon Dioxide 18 mmol/L (22-30); Chloride 100 mmol/L (98-107); Estimated CRCL calculation 40 ml/min; Estimated Glomerular Filt Rate 47; Glucose 527 mg/dL (65-110); Lactate Dehydrogenase 428 U/L (313-618); Lipase 14 U/L (23-300); Magnesium 2.1 mg/dL (1.6-2.3); Potassium 4.6 mmol/L (3.4-5.0); Sodium 132 mmol/L (137-145)
[2021-06-16] MEDS: INSULIN ASPART (*BKC) 100 UNITS/ML 16 UNITS SUB-Q (06:06)
[2021-06-16 07:30] LABS: Glucose Point of Care 127 mg/dl (65-105)
[2021-06-16 08:14] LABS: Hemoglobin A1C 7.2 % (<5.7)
[2021-06-16 08:57] LABS: Glucose Point of Care 73 mg/dl (65-105)
[2021-06-16] MEDS: EZETIMIBE 10 MG TABLET PO (09:47)
[2021-06-16] MEDS: GABAPENTIN 100 MG CAPSULE PO (09:47)
[2021-06-16] MEDS: DULoxetine HCL 60 MG CAPSULE.DR PO (09:47)
[2021-06-16] MEDS: PANTOPRAZOLE 40 MG TABLET PO (09:47)
[2021-06-16] MEDS: ROSUVASTATIN 10 MG TABLET 20 MG PO (09:47)
[2021-06-16 10:10] LABS: Thyroid Stimulating Hormone Reflex 0.754 uIU/mL (0.465-4.68)
[2021-06-16 11:47] LABS: Glucose Point of Care 284 mg/dl (65-105)
[2021-06-16] MEDS: INSULIN ASPART (*BKC) 100 UNITS/ML SUB-Q (11:50)
[2021-06-16 13:11] LABS: Glucose Point of Care 349 mg/dl (65-105)
--- NOTE | 2021-06-16 15:57 | PM.DS ---
DS: Admitting Diagnosis Discharge Date 06/16/21 Admitting Diagnosis Altered mental status, hypoglycemia DS: Discharge Diagnosis Discharge Diagnosis (1) Altered mental status: Qualifiers: Altered mental status type: unspecified Qualified Code(s): R41.82 - Altered mental status, unspecified Code(s): R41.82 - Altered mental status, unspecified Status: Acute (2) Hypoglycemia: Code(s): E16.2 - Hypoglycemia, unspecified Status: Acute (3) Type 1 diabetes mellitus with hypoglycemia unawareness: Code(s): E10.649 - Type 1 diabetes mellitus with hypoglycemia without coma Status: Acute (4) Hyperlipidemia LDL goal <100: Code(s): E78.5 - Hyperlipidemia, unspecified Status: Acute (5) Anemia, chronic disease: Code(s): D63.8 - Anemia in other chronic diseases classified elsewhere Status: Acute DS: Summary Hospital Course Reason for hospitalization: 66yo male with Type i DM here for altered mental status from hypoglycemia. Please see H&P for details Hospital Course: Patient lives home alone and typically take care of himself. EMS was activated today due to altered mental status. Patient's father found him sitting on the couch and glucose by EMS was 16. Was given an amp of D50 with improvement of his blood sugar. He did remain confused but this improved after admission. EKG showed no acute findings. Chest x-ray was clear. CT of the brain showed no evidence of acute intracranial findings. White count slightly elevated admission but no evidence of infection. Hemoglobin was 11.9 and did drop to 9.5 which is actually closer to his baseline. Alcohol and urine drug screen were negative. COVID was negative. His lactic acid level was elevated at 3.3 but normalized on repeat. For unclear reasons into lactic acid was checked this morning and was 4.4 but no reflux was ordered. Patient is clinically stable. No fevers. [place] related to how it was drawn. Spoke with patient and father at bedside. Explained the need to keep glucose higher at baseline. his A1c 7.2 so probably too tightly controlled for a brittle diabetic. He has had 3 hospitalizations for hypoglycemia over the past year. The patient monitors and adjust his insulin himself. Recommend patient resume his regiment to keep his glucose in the 140-160 range. I recommended he contact his websphere message broker developer to workup further management. He voices understanding of this. Patient has been up to the bathroom with assistance. Feels well. He denies any nausea or vomiting. No chest pain or shortness of breath. No dysuria or hematuria. He does feel tired. Patient did well to be discharged home on 06/16/2021 Status at Discharge Cognitive/behavioral status at discharge: stable Time Spent with Patient Time attestation: Total time spent providing and/or coordinating discharge services: 35 minutes Time spent: Greater than 30 minutes Exam Narrative: AF 98.2 129/42 98 20 100% ra Gen - NARD Chest - CTA bilaterally, nml RR CV - RRR S1/S2 Abd - Soft, NT/ND, Positive BS Ext -right BKA. Psych - Nml mood and affect. Patient alert and oriented x4 Skin - Warm and dry DS: Data Data Completed and Pending Labs on day of discharge: Labs from last 24 hours 06/16/21 06/16/21 06/16/21 12:32 11:45 08:07 WBC RBC Hgb Hct MCV MCH MCHC RDW Plt Count MPV Immature Gran % (Auto) Neut % (Auto) Lymph % (Auto) [place] % (Auto) Eos % (Auto) Baso % (Auto) Lymph # (Auto) [place] # (Auto) Eos # (Auto) Baso # (Auto) Abs Immat Gran (auto) Absolute Neuts (auto) Absolute Nucleated RBC Nucleated RBC % PT INR APTT D-Dimer Sodium Potassium Chloride Carbon Dioxide Anion Gap BUN Creatinine Estim Creat Clear Calc Estimated GFR Glucose POC Capillary Glucose 349 H 284 H 73 Hemoglobin A1c Lactic Acid
[2021-06-16 16:38] LABS: Lactic Acid Reflex 1.7 mmol/L (0.7-2.1)
[2021-06-16 16:58] LABS: Anion Gap 10 mmol/L (8-16); Blood Urea Nitrogen 44 mg/dL (9-20); Calcium 9.1 mg/dL (8.4-10.2); Carbon Dioxide 22 mmol/L (22-30); Chloride 98 mmol/L (98-107); Estimated CRCL calculation 34 ml/min; Estimated Glomerular Filt Rate 38; Glucose 368 mg/dL (65-110); Potassium 4.5 mmol/L (3.4-5.0); Sodium 130 mmol/L (137-145)
== END 2021-06-16 17:30 | disposition home or self-care (01) ==
LOC: ANHED 18:33 → ANHIMU 06-16 08:37
PROVIDERS: Nurse Practitioner; Physician Assistant; Admitting Provider Internal Medicine; Emergency Provider Emergency Medicine; PCP Family Medicine; Visit Provider Internal Medicine
DX: E10.649 Type 1 diabetes mellitus with hypoglycemia without coma (principal); R41.82 Altered mental status, unspecified; N18.30 Chronic kidney disease, stage 3 unspecified; E78.2 Mixed hyperlipidemia; D63.1 Anemia in chronic kidney disease; E10.22 Type 1 diabetes mellitus with diabetic chronic kidney disease; E10.319 Type 1 diabetes mellitus with unspecified diabetic retinopathy without macular edema; E10.40 Type 1 diabetes mellitus with diabetic neuropathy, unspecified; E10.51 Type 1 diabetes mellitus with diabetic peripheral angiopathy without gangrene; E55.9 Vitamin D deficiency, unspecified; F33.1 Major depressive disorder, recurrent, moderate; F41.9 Anxiety disorder, unspecified; G47.33 Obstructive sleep apnea (adult) (pediatric); Z95.820 Peripheral vascular angioplasty status with implants and grafts; Z79.4 Long term (current) use of insulin; Z89.511 Acquired absence of right leg below knee; Z20.822 Contact with and (suspected) exposure to COVID-19
CPT/HCPCS: 36415; 51701; 70450; 71045; 80048; 80053; 80307; 81001; 82948; 83036; 83605; 83615; 83690; 83735; 84443; 84484; 85025; 85380; 85610; 85730; 86140; 93005; 96365; 99285; A9270; C9803; G0378; J0131; J1815; U0003; U0005

== ENCOUNTER 2021-06-17 16:51 | Emergency (ER) | payer OTHER, SELFPAY ==
[2021-06-17] VITALS (8 sets, daily range): BP systolic 76–88; BP diastolic 38–56; PULSE 80–90; RESP 17–24; TEMP 35.3–36.6; O2SAT 98–100
--- NOTE | ~2021-06-17 | XR_ITS ---
XR chest 1V portable 06/17/2021 18:39 Indication: Hypotension. Procedure: AP portable chest Comparison: Comparison to multiple prior studies sequentially, with oldest reviewed study dated 06/22. Findings: There is extensive bilateral airspace disease. Heart size is normal for technique. No pleur al effusion or pneumothorax. Impression: 1: Bilateral airspace disease which may represent edema or pneumonia. Reviewed, dictated and finalized at location A. [facility] Impression: 1: Bilateral airspace disease which may represent edema or pneumonia.
[2021-06-17 17:03] LABS: Glucose Point of Care > 500 mg/dl (65-105)
--- NOTE | 2021-06-17 17:04 | ECG_ITS ---
Measurements Intervals [place] Rate: 86 P: 89 MN: 128 QRS: 111 QRSD: 150 T: -14 QT: 394 QTc: 473 Interpretive Statements SINUS RHYTHM RIGHT BUNDLE BRANCH BLOCK LEFT POSTERIOR FASCICULAR BLOCK ST-T WAVE ABNORMALITY IN ANTEROLAT/INF LEADS- CONSIDER ISCHEMIA BASELINE ARTIFACT- II, III, AVF, V1, V3-V6 ABNORMAL ECG Electronically Signed On 06-17-2021 18:51:45 GAS GOLF CART REPAIRER by Aj Verdugo D.O.
[2021-06-17] MEDS: SODIUM CHLORIDE 0.9% IV 1,000 ML 999 ML IV CONT ×4 (17:07→18:21)
[2021-06-17 17:18] LABS: Alveolar/Arterial O2 Gradient 33.5 mmHg; Base Excess ABG -20.8 mEq/l (+/-2.0); Carboxyhemoglobin 0.3 % THb (0-2.0); Fractional Inspired Oxygen 21 %; HCO3 ABG 6.3 mEq/l (22.0-26.0); Methemoglobin ABG 0.4 %THb (0-1.5); Oxygen Content ABG 13.7 %vol (16.0-22.0); Oxygen Saturation ABG 95.1 % (95.0-100.0); Oxyhemoglobin 94.3 % THb (90.0-100.0); PO2 ABG 93.7 mmHg (80.0-100.0); PO2 FiO2 Ratio Arterial Blood 4.46 %; Total Hemoglobin 10.2 g/dL (12.0-18.0)
[2021-06-17 17:20] LABS: Device ROOM AIR; Modified Allen's Test Pass; PCO2 ABG 18.8 mmHg (35.0-45.0); Site Drawn RIGHT RADIAL; pH ABG 7.143 (7.350-7.450)
[2021-06-17 17:24] LABS: Basophils Percent Auto 0.2 % (0.2-1.2); Eosinophils Percent Auto 0.1 % (0-4.4); Hematocrit 31.1 % (42.0-52.0); Hemoglobin 9.1 g/dL (14.0-18.0); Immature Granulocyte Absolute 0.18 K/mm3 (0.00-0.031); Immature Granulocyte Percent A 0.9 % (0-0.5); Lymphocytes Absolute Auto 0.62 K/mm3 (0.9-3.2); Lymphocytes Percent Auto 3.2 % (18.3-44.2); Mean Corpuscular HGB Conc 29.3 g/dl (32-36); Mean Corpuscular Hemoglobin 30.8 pg (26-34); Mean Corpuscular Volume 105.4 fl (80-100); Mean Platelet Volume 10.5 fl (7.4-10.4); Monocytes Absolute Auto 1.2 K/mm3 (0.1-0.6); Monocytes Percent Auto 6.2 % (2.6-8.5); Neutrophils Absolute Auto 17.3 K/mm3 (1.3-6.7); Neutrophils Percent Auto 89.4 % (45.5-73.1); Platelet Count Result 296 k/mm3 (150-375); Red Blood Count 2.95 M/mm3 (4.6-6.20); Red Cell Distribution Width 13.1 % (11.5-14.5); White Blood Count 19.4 K/mm3 (4.5-10.0)
--- NOTE | 2021-06-17 17:26 | PC.NURSE ---
Called lab to add on Trop Baseline
--- NOTE | 2021-06-17 17:32 | ECG_ITS ---
Measurements Intervals [place] Rate: 87 P: 89 GA: 149 QRS: 104 QRSD: 142 T: -16 QT: 399 QTc: 481 Interpretive Statements SINUS RHYTHM RIGHT AXIS DEVIATION RIGHT BUNDLE BRANCH BLOCK ST-T WAVE ABNORMALITY IN ANTEROLAT/INF LEADS- CONSIDER ISCHEMIA BASELINE ARTIFACT- II, III, AVF, V1, V3-V6 ABNORMAL ECG Electronically Signed On 06-17-2021 18:53:30 ASSOCIATE PROFESSOR by Aj Verdugo D.O.
[2021-06-17 17:49] LABS: Alanine Aminotransferase 33 U/L (4-50); Albumin Level 3.9 g/dL (3.5-5.1); Alkaline Phosphatase 91 U/L (38-126); Anion Gap 26 mmol/L (8-16); Aspartate Amino Transferase 91 U/L (17-59); Bilirubin,Total 1.1 mg/dL (0.2-1.3); Blood Urea Nitrogen 71 mg/dL (9-20); Calcium 8.4 mg/dL (8.4-10.2); Carbon Dioxide 6 mmol/L (22-30); Chloride 89 mmol/L (98-107); Estimated CRCL calculation 22 ml/min; Estimated Glomerular Filt Rate 24; Glucose 851 mg/dL (65-110); Magnesium 2.5 mg/dL (1.6-2.3); Phosphorus 9.5 mg/dL (2.5-4.5); Sodium 121 mmol/L (137-145)
--- NOTE | 2021-06-17 18:00 | ED.RECABL ---
HPI - Recheck/Abnormal Lab/Rx General Chief Complaint: Recheck/Abnormal Lab/Rx Stated Complaint: HYPERGLYCEMIC Time Seen by Provider: 06/17/21 17:03 Source: patient History of Present Illness HPI narrative: Patient presents with elevated blood sugar. Patient ports his insulin pump failed last night he had hard time getting it to work he then had progressive weakness and had his blood sugars were elevated so he came to the ER for evaluation. Reports generalized weakness. Denies focal areas of pain such as chest pain or abdominal pain. Does report 1 episode of emesis today. Related Data Home Medications Medication Instructions Recorded Confirmed ezetimibe 10 mg tablet 10 mg PO DAILY 11/24/19 06/15/21 rosuvastatin 20 mg tablet 20 mg PO DAILY 02/21/20 06/15/21 ramipril 2.5 mg capsule 2.5 mg PO DAILY 06/27/20 06/15/21 clonazepam 0.5 mg PO DAILY PRN 03/13/21 06/15/21 pantoprazole 40 mg tablet,delayed 40 mg PO DAILY tablet 04/19/21 06/15/21 release gabapentin 100 mg capsule 100 mg PO DAILY 05/18/21 06/15/21 Allergies Allergy/AdvReac Type Severity Reaction Status Date / Time No Known Allergies Allergy Unknown Verified 05/18/21 09:03 Review of Systems Review of Systems: CONSTITUTIONAL: Denies fever, chills, or sweats. EYES: Denies visual changes, redness, or discharge. ENT: Denies rhinorrhea, congestion, sore throat, or otalgia. CARDIOVASCULAR: Denies chest pain, palpitations, or edema. RESPIRATORY: Denies cough or dyspnea. GASTROINTESTINAL: Denies abdominal pain, nausea, vomiting, or diarrhea. GENITOURINARY: Denies dysuria or hematuria. SKIN: Denies rash or itching. MUSCULOSKELETAL: Denies back pain, joint pain, or myalgia. NEUROLOGIC: Denies headache, numbness, dizziness, or focal weakness. PSYCHIATRIC: Denies anxiety or depression. 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 Anemia in chronic kidney disease Anemia in chronic kidney disease (CKD) Anxiety Chronic kidney disease, stage 3 (moderate) Baseline creatinine is between 1.3 and 1.40. Closed patellar sleeve fracture of left knee Depression Hyperlipidemia due to type 1 diabetes mellitus Insomnia Kidney stones Major depressive disorder, recurrent, moderate Mixed hyperlipidemia Obstructive sleep apnea Peripheral vascular disease Type 1 diabetes mellitus Complicated by diabetic retinopathy, nephropathy, and neuropathy. Most recent hemoglobin A1c was 8.9%. Vitamin D insufficiency Surgical History Surgical History History of right below knee amputation History of transmetatarsal amputation of right foot (~06/2019) Peripheral vascular angioplasty status with implants and grafts Family History Family History Father Acute myocardial infarction CABG Mother Hypothyroid Breast cancer Mother Family history of cataracts Father Malignant neoplasm of prostate Cerebrovascular accident Sibling Patient's brother is Other Family history of arthritis Family history of cardiovascular disease Family history of malignant neoplasm Social History Social History Social History: . He also has a prosthesis for the right leg. He has no biological children. He did have 2 step children when he was . Surrogate decision maker: Guerrero Yang Sr. (father). Code status: Full code. Smoking status: Never smoker Second hand tobacco smoke exposure: No Alcohol intake: never Substance use: never Substance use type: does not use Additional living arrangements comments: . Lives in his own home in [place]. Ambulate
[2021-06-17 18:11] LABS: Platelet Estimate Adequate (Adequate)
[2021-06-17] MEDS: HEPARIN SODIUM 5,000 UNITS/ML VIAL 3500 UNITS IV PUSH (18:12)
[2021-06-17 18:13] LABS: Burr Cells 3+ (NORMAL); Hypochromasia 1+ (NORMAL)
[2021-06-17] MEDS: INSULIN HUMAN REGULAR (*BKC) 100 UNITS/ML 6 UNITS IV PUSH (18:13)
[2021-06-17] MEDS: ASPIRIN 81 MG CHEWABLE TABLET 324 MG PO (18:16)
--- NOTE | 2021-06-17 18:16 | PC.NURSE ---
Called lab to add on PT/INR PTT
[2021-06-17 18:25] LABS: Beta-Hydroxybutyrate/Acetoacetate 9.83 mmol/L (0.02-0.27)
--- NOTE | 2021-06-17 18:26 | PC.NURSE ---
Report called to jeny Cordova RN at [facility]. [phone]
[2021-06-17] MEDS: INSULIN HUMAN REGULAR (*BKC) 100 UNITS in SODIUM CHLORIDE 0.9% IV 99 ML 15.8 UNITS IV CONT (18:29)
[2021-06-17 18:30] LABS: INR 1.4; Prothrombin Time 16.7 Seconds (11.1-14.7)
[2021-06-17 18:31] LABS: Partial Thromboplastin Time 28.7 SECONDS (22.3-36.8)
[2021-06-17 18:36] LABS: Glucose Point of Care > 500 mg/dl (65-105)
[2021-06-17] MEDS: HEPARIN SOD/D5W 100 UNITS/ML 25,000 UNITS/250 ML BAG 7 UNITS IV CONT (18:36)
[2021-06-17 18:54] LABS: Add Urine Microscopic? YES; Appearance Urine Clear (Clear); Bilirubin Urine Negative (Negative); Blood Urine Negative (Negative); Color Urine Straw (Yellow); Glucose Urine UA 3+ mg/dL (Negative); Ketones Urine Trace mg/dL (Negative); Leukocyte Esterase Ur Negative LEU/UL (Negative); Mucus Urine Rare /lpf; Nitrate Urine Negative (Negative); Protein Urine Negative (Negative); RBC Urine 0-2 /hpf (0-2); Specific Grav Ur 1.016 (1.001-1.035); Urobilinogen Urine Negative mg/dL (<2.0); WBC Urine 0-3 /hpf
--- NOTE | 2021-06-17 19:25 | PC.NURSE ---
Normal saline and insulin infusion stop time of 192406/17/21
[2021-06-17 19:27] LABS: Glucose Point of Care > 500 mg/dl (65-105)
--- NOTE | 2021-06-26 13:20 | PC.NURSE ---
Normal saline and insulin infusion stop time of 192406/17/21
== END 2021-06-17 19:25 | disposition short-term general hospital (02) ==
PROVIDERS: Emergency Medicine; Emergency Provider Emergency Medicine; PCP Family Medicine
DX: E10.10 Type 1 diabetes mellitus with ketoacidosis without coma (principal); I21.3 ST elevation (STEMI) myocardial infarction of unspecified site; I95.9 Hypotension, unspecified; E10.22 Type 1 diabetes mellitus with diabetic chronic kidney disease; N18.30 Chronic kidney disease, stage 3 unspecified; D63.1 Anemia in chronic kidney disease; E10.319 Type 1 diabetes mellitus with unspecified diabetic retinopathy without macular edema; E10.21 Type 1 diabetes mellitus with diabetic nephropathy; E10.40 Type 1 diabetes mellitus with diabetic neuropathy, unspecified; E10.51 Type 1 diabetes mellitus with diabetic peripheral angiopathy without gangrene; E10.69 Type 1 diabetes mellitus with other specified complication; E78.2 Mixed hyperlipidemia; G47.33 Obstructive sleep apnea (adult) (pediatric); Z79.4 Long term (current) use of insulin; Z96.41 Presence of insulin pump (external) (internal); Z89.021 Acquired absence of right finger(s); Z87.442 Personal history of urinary calculi; Z89.511 Acquired absence of right leg below knee; I45.10 Unspecified right bundle-branch block; R94.31 Abnormal electrocardiogram [ECG] [EKG]; F41.9 Anxiety disorder, unspecified; F33.9 Major depressive disorder, recurrent, unspecified
CPT/HCPCS: 36415; 36600; 51702; 71045; 80053; 81001; 82010; 82375; 82805; 82948; 83050; 83735; 84100; 84484; 85025; 85610; 85730; 93005; 96365; 96368; 99291; A9270; J1644; J1815; J7030

== ENCOUNTER 2021-07-19 09:57 | Emergency (ER) | payer OTHER, SELFPAY ==
[2021-07-19 10:06] VITALS: BP 73/39; PULSE 58; RESP 22; TEMP 36.5; O2SAT 98
--- NOTE | 2021-07-19 10:10 | ED.AMS ---
HPI - Altered Mental Status General Chief Complaint: Altered Mental Status Stated Complaint: hyperglycemic Time Seen by Provider: 07/19/21 10:10 Source: EMS Mode of arrival: EMS Limitations: clinical condition History of Present Illness HPI narrative: Patient is 66 years old white male lives alone brought to the emergency room by ambulance because of lethargy and change of mental status. History of type 1 diabetes, hyperlipidemia and pneumonitis episodes of hypoglycemia. Patient is status post 5 coronary stent placement at [facility] required 1 month hospitalization and got discharged 12 days ago to home. Patient parents alternating taking care of him. Patient had insulin pump placement yesterday. The father is telling me that patient could not have coronary bypass because of the fragility of his heart and had 5 stents instead. The father also requested DNR, no heroic measures including any invasive procedures.. Related Data Home Medications Medication Instructions Recorded Confirmed ezetimibe 10 mg tablet 10 mg PO DAILY 11/24/19 06/15/21 rosuvastatin 20 mg tablet 20 mg PO DAILY 02/21/20 06/15/21 ramipril 2.5 mg capsule 2.5 mg PO DAILY 06/27/20 06/15/21 clonazepam 0.5 mg PO DAILY PRN 03/13/21 06/15/21 pantoprazole 40 mg tablet,delayed 40 mg PO DAILY tablet 04/19/21 06/15/21 release gabapentin 100 mg capsule 100 mg PO DAILY 05/18/21 06/15/21 Allergies Allergy/AdvReac Type Severity Reaction Status Date / Time No Known Allergies Allergy Unknown Verified 05/18/21 09:03 Review of Systems Review of Systems: ROS unobtainable: Yes unobtainable due to medical condition [facility] Past Medical History Medical History (Updated 07/19/21 @ 17:28 by Alex Flores MD) Ambulatory dysfunction 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 Anemia in chronic kidney disease Anemia in chronic kidney disease (CKD) Anxiety CAD (coronary artery disease) Chronic kidney disease, stage 3 (moderate) Baseline creatinine is between 1.3 and 1.40. Closed patellar sleeve fracture of left knee Depression Hyperlipidemia due to type 1 diabetes mellitus Insomnia Kidney stones Major depressive disorder, recurrent, moderate Mixed hyperlipidemia Obstructive sleep apnea Peripheral vascular disease Type 1 diabetes mellitus Complicated by diabetic retinopathy, nephropathy, and neuropathy. Most recent hemoglobin A1c was 8.9%. Vitamin D insufficiency Surgical History Surgical History History of right below knee amputation History of transmetatarsal amputation of right foot (~06/2019) Peripheral vascular angioplasty status with implants and grafts Family History Family History Father Acute myocardial infarction CABG Mother Hypothyroid Breast cancer Mother Family history of cataracts Father Malignant neoplasm of prostate Cerebrovascular accident Sibling Patient's brother is Other Family history of arthritis Family history of cardiovascular disease Family history of malignant neoplasm Social History Social History Social History: . He also has a prosthesis for the right leg. He has no biological children. He did have 2 step children when he was . Surrogate decision maker: Guerrero Yang Sr. (father). Code status: Full code. Smoking status: Never smoker Second hand tobacco smoke exposure: No Alcohol intake: never Substance use: never Substance use type: does not use Additional living arrangements comments: . Lives in his own home in [place]. Ambulates with a cane. He has a prosthesis for the right leg Additional occupation/education comments: Disabled. Gender identity (if verbalized by the patient): Male Sexual Orientation (if Ve
[2021-07-19 10:20] VITALS: BP 69/35; PULSE 46; O2SAT 94
[2021-07-19 10:28] VITALS: BP 61/19; PULSE 38; RESP 18; O2SAT 78
[2021-07-19 10:42] LABS: Glucose Point of Care > 500 mg/dl (65-105)
[2021-07-19] MEDS: SODIUM CHLORIDE 0.9% IV 1,000 ML 999 ML IV CONT ×2 (10:43→11:42)
--- NOTE | 2021-07-19 10:47 | ECG_ITS ---
Measurements Intervals [place] Rate: 43 P: 84 WV: 174 QRS: 78 QRSD: 171 T: -32 QT: 543 QTc: 462 Interpretive Statements MARKED SINUS BRADYCARDIA RIGHT BUNDLE BRANCH BLOCK [120+ ms QRS DURATION, UPRIGHT V1, 40+ ms S IN I/aVL/V4/V5/V6] T-WAVE ABNORMALITY AND ST DEPRESSION, CONSIDER SUBENDOCARDIAL INJURY [0.1+ mV ST DEPRESSION] ABNORMAL ECG COMPARED TO ECG 06/17/2021 17:36:05 SINUS BRADYCARDIA NOW PRESENT Electronically Signed On 07-19-2021 14:16:20 CDT by Felix Aguilar M.D.
--- NOTE | 2021-07-19 11:08 | PM.IMHP ---
H&P: HPI History of Present Illness Date/Time: PATIENT ADMITTED UNDER OBSERVATION STATUS 07/19/21 11:08 Chief Complaint: Altered mental status Narrative: 66-year-old male type 1 diabetes mellitus, coronary disease with recent stent placement and CKD who is brought in by EMS for altered mental status. Patient is poorly responsive. He is unable to provide history. Family at bedside. They state patient was hospitalized at [facility] [place] for about a month for coronary disease. He underwent heart catheterization with 5 stents placed. CABG was being considered but it was felt patient was too high risk. Patient has been home for about 12 days now. His mother and father have been alternating spending the night with them. The patient does live alone otherwise. Patient was doing well up until the day before admission when he had difficulty talking with garbled speech. He also developed shortness of breath with cough. Last evening patient did not seem to be making sense. EMS was called this morning because patient was unresponsive. In the emergency room, patient was unresponsive, hypotensive and bradycardic. Labs drawn but are pending this dictation. Glucose was greater than 500. Was given insulin and IV fluids. Discussion with the family about intervention including central line and pressors and potentially intubation. Family state clearly that the do not any intervention and want the patient to be kept comfortable. Explained in great detail that this would include a morphine drip as well as morphine and Ativan available as needed. Explained also that there will be further evaluation or treatment and they voice understanding of this. Patient will be admitted under comfort measures. 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 Anemia in chronic kidney disease Anemia in chronic kidney disease (CKD) Anxiety CAD (coronary artery disease) Chronic kidney disease, stage 3 (moderate) Baseline creatinine is between 1.3 and 1.40. Closed patellar sleeve fracture of left knee Depression Hyperlipidemia due to type 1 diabetes mellitus Insomnia Kidney stones Major depressive disorder, recurrent, moderate Mixed hyperlipidemia Obstructive sleep apnea Peripheral vascular disease Type 1 diabetes mellitus Complicated by diabetic retinopathy, nephropathy, and neuropathy. Most recent hemoglobin A1c was 8.9%. Vitamin D insufficiency Surgical History Surgical History History of right below knee amputation History of transmetatarsal amputation of right foot (~06/2019) Peripheral vascular angioplasty status with implants and grafts Family History Family History Father Acute myocardial infarction CABG Mother Hypothyroid Breast cancer Mother Family history of cataracts Father Malignant neoplasm of prostate Cerebrovascular accident Sibling Patient's brother is Other Family history of arthritis Family history of cardiovascular disease Family history of malignant neoplasm Social History Social History Social History: . He also has a prosthesis for the right leg. He has no biological children. He did have 2 step children when he was . Surrogate decision maker: Guerrero Yang Sr. (father). Code status: Full code. Smoking status: Never smoker Second hand tobacco smoke exposure: No Alcohol intake: never Substance use: never Substance use type: does not use Additional living arrangements comments: . Lives in his own home in [place]
[2021-07-19 11:18] LABS: Alanine Aminotransferase 60 U/L (4-50); Albumin Level 3.2 g/dL (3.5-5.1); Alkaline Phosphatase 191 U/L (38-126); Aspartate Amino Transferase 177 U/L (17-59); Bilirubin,Total 1.1 mg/dL (0.2-1.3); Blood Urea Nitrogen 48 mg/dL (9-20); Calcium 7.7 mg/dL (8.4-10.2); Carbon Dioxide < 5 mmol/L (22-30); Chloride 83 mmol/L (98-107); Estimated CRCL calculation 19 ml/min; Estimated Glomerular Filt Rate 20; Glucose 1265 mg/dL (65-110); Magnesium 2.5 mg/dL (1.6-2.3); Phosphorus 12.5 mg/dL (2.5-4.5); Potassium 7.6 mmol/L (3.4-5.0); Sodium 117 mmol/L (137-145)
--- NOTE | 2021-07-19 11:19 | PC.NURSE ---
at bedside with SALMA julian. Family states they would like to initiate insulin gtt at this time.
[2021-07-19 11:21] VITALS: BP 70/35; PULSE 54; RESP 12
[2021-07-19] MEDS: MORPHINE SULFATE (*CRX) 2 MG/ML INJ IV PUSH (11:42)
[2021-07-19 11:54] LABS: Fractional Inspired Oxygen 100 %; HCO3 VBG 4.4 mEq/l (24.0-30.0); PCO2 VBG 35.2 mmHg (42.0-48.0); PO2 VBG 50.6 mmHg (35.0-45.0)
[2021-07-19 11:55] LABS: Magnesium 2.6 mg/dL (1.6-2.3)
[2021-07-19 11:55] LABS: Device NON-REBREATHER MASK; pH VBG 6.712 (7.300-7.400)
[2021-07-19 11:59] LABS: Glucose Point of Care > 500 mg/dl (65-105)
[2021-07-19] MEDS: INSULIN HUMAN REGULAR (*BKC) 100 UNITS in SODIUM CHLORIDE 0.9% IV 99 ML 24.1 UNITS IV CONT (12:01)
[2021-07-19] MEDS: INSULIN HUMAN REGULAR (*BKC) 100 UNITS/ML 6 UNITS IV PUSH (12:01)
[2021-07-19 12:09] LABS: Phosphorus 12.5 mg/dL (2.5-4.5)
[2021-07-19] MEDS: CALCIUM GLUCONATE 1,000 MG/10 ML VIAL 1000 MG IV PUSH (12:43)
[2021-07-19] MEDS: SODIUM BICARBONATE 8.4% 50 MEQ/50 ML SYRINGE IV PUSH ×2 (12:44)
[2021-07-19 12:46] VITALS: BP 65/32; PULSE 48; RESP 18
[2021-07-19 12:50] LABS: Mean Platelet Volume 10.4 fl (7.4-10.4); Platelet Count Result 395 k/mm3 (150-375); Red Blood Count 2.23 M/mm3 (4.6-6.20); Red Cell Distribution Width 14.2 % (11.5-14.5); White Blood Count 21.7 K/mm3 (4.5-10.0)
[2021-07-19] MEDS: LORazepam INJ (*CRX) 2 MG/ML VIAL 1 MG IV PUSH (12:53)
--- NOTE | 2021-07-19 13:00 | PC.NURSE ---
radiation monitor showing HR of 20 with minimal cardiac activity. RN and metal alloy scientist to bedside. Pt has agonal respirations with no palpable pulses. Dr. Flores updated on patient condition. Pt's family at bedside.
--- NOTE | 2021-07-19 13:02 | PC.NURSE ---
Upon arrival to room pt noted to have agonal respirations and unable to palpate pulses. Family made aware and [facility] called
--- NOTE | 2021-07-19 13:08 | PC.NURSE ---
Dr Flores at bedside, confirms to family that pt has passed. [facility] at bedside.
--- NOTE | 2021-07-19 13:22 | PC.NURSE ---
Correction to earlier RN note in regards to time of , time of per Dr. Flores is 1322.
--- NOTE | 2021-07-19 13:23 | PC.NURSE ---
pt noted to have no respirations, no palpable pulse, no pupillary response. Per [facility] time of is 1322.
[2021-07-19 13:28] LABS: Hematocrit 21.5 % (42.0-52.0); Mean Corpuscular HGB Conc 30.2 g/dl (32-36); Mean Corpuscular Hemoglobin 28.9 pg (26-34); Mean Corpuscular Volume 95.6 fl (80-100)
[2021-07-19 13:29] LABS: Hemoglobin 6.5 g/dL (14.0-18.0)
[2021-07-19 13:34] LABS: Band Neutrophils Percent 17 % (0-6); Eosinophils Absolute Manual 0.43 K/mm3 (0.02-0.5); Eosinophils Percent Manual 2 % (0-4); Metamyelocytes Percent 9 %; Monocytes Absolute Manual 0.21 K/mm3 (0.1-0.90); Monocytes Percent Manual 1 % (3-9); Neutrophils Absolute Manual 16.49 K/mm3 (1.3-6.7); Neutrophils Percent Manual 59 % (46-73); Total Cells Counted 100
--- NOTE | 2021-07-19 13:34 | PC.NURSE ---
1326 Spoke with Beryl at [facility], information provided. 1329 Karel with [facility] spoke with home.
--- NOTE | 2021-07-19 14:03 | PC.NURSE ---
post mortem care completed. IVF removed, hoffman removed and IV access. Placed in body bag, home to come get patient from ER.
== END 2021-07-19 14:36 | disposition expired ==
PROVIDERS: Emergency Provider Emergency Medicine; PCP Family Medicine
DX: R57.9 Shock, unspecified (principal); E10.65 Type 1 diabetes mellitus with hyperglycemia; I95.9 Hypotension, unspecified; I25.10 Atherosclerotic heart disease of native coronary artery without angina pectoris; R00.1 Bradycardia, unspecified; E10.22 Type 1 diabetes mellitus with diabetic chronic kidney disease; N18.30 Chronic kidney disease, stage 3 unspecified; D63.1 Anemia in chronic kidney disease; E10.69 Type 1 diabetes mellitus with other specified complication; E78.2 Mixed hyperlipidemia; E10.319 Type 1 diabetes mellitus with unspecified diabetic retinopathy without macular edema; E10.21 Type 1 diabetes mellitus with diabetic nephropathy; E10.40 Type 1 diabetes mellitus with diabetic neuropathy, unspecified; Z95.5 Presence of coronary angioplasty implant and graft; G47.33 Obstructive sleep apnea (adult) (pediatric); F41.9 Anxiety disorder, unspecified; F33.8 Other recurrent depressive disorders; Z89.021 Acquired absence of right finger(s); Z79.4 Long term (current) use of insulin; Z87.442 Personal history of urinary calculi; Z89.511 Acquired absence of right leg below knee
CPT/HCPCS: 80053; 82010; 82803; 82948; 83735; 84100; 85025; 93005; 96361; 96365; 96375; 99285; J0610; J1815; J2060; J2270; J7030